=== PATIENT | female | born 1940 | race Caucasian/White ===

== ENCOUNTER 2019-02-18 22:13 | Inpatient (IN) | payer OTHER, SELFPAY ==
[2019-02-18 22:14] VITALS: BP 172/118; PULSE 73; RESP 15; TEMP 36.8; O2SAT 99; BMI 29.2
--- NOTE | 2019-02-18 22:27 | RAD_ITS ---
HISTORY: FALL, LEFT HIP PAIN, COUGH EXAM: XR Chest 1 View: COMPARISON: July 03, 2009 FINDINGS: # of images incl. paperwork: 1 Calcific plaque within the aortic arch is similar Lungs are clear. Heart is not enlarged. Multilevel degenerative disc disease. Bilateral shoulder arthritis. Pulmonary vascularity is distinct. No pleural effusions. RAD/Chest 1 View (Portable) IMPRESSION: No acute disease perceived. at 0037 Reported and signed by: Adryan Maher MD Electronically Signed: Adryan Maher MD at 0:36 EST Tel , Service support ,
--- NOTE | 2019-02-18 22:27 | RAD_ITS ---
ACR Level 3 findings have been noted. An addendum which confirms receipt of the report will follow. HISTORY:FALL, LEFT HIP PAIN FALL, LEFT HIP PAIN COMPARISON: None FINDINGS: # of images incl. paperwork: 4 XR Hip Unilateral with Pelvis when performed; 2-3 Views: Left BONE AND JOINTS: Intertrochanteric left hip fracture with no significant displacement. Degenerative change of left hip with central joint space narrowing SOFT TISSUES: Surgical clips in the pelvis No radiopaque foreign body. RAD/HIP, UNI W/ Pelvis 2-3 Views IMPRESSION: Intertrochanteric left hip fracture at 2353 Reported and signed by: Yin Salas DO Electronically Signed: Yin Salas DO at 23:52 EST Tel , Service support ,
--- NOTE | 2019-02-18 22:27 | EKG12_ITS ---
Test Reason : LOWER EXTREMITY Blood Pressure : / mmHG Vent. Rate : 075 BPM Atrial Rate : 075 BPM P-R Int : 226 ms QRS Dur : 086 ms QT Int : 418 ms P-R-T Axes : 078 -12 074 degrees QTc Int : 466 ms Sinus rhythm with 1st degree A-V block Otherwise normal ECG Confirmed by TEN CAM, CAITLYN ([id number]), senior editor MANAN MAHAJAN ([id number]) on 02/21/2019 10:01:39 AM Referred By: SOWMYA Confirmed By:CAITLYN CAAL MD
--- NOTE | 2019-02-18 22:28 | ED.VIS.GEN ---
History of Present Illness Chief Complaint: Lower Extremity Injury Narrative: Patient is a 78-year-old female who presents with left hip pain. Shortly before presentation here she was sitting on a bench which fell over and she fell onto a wooden floor. She complains of severe left hip pain. She does not believe she sustained any other injuries. No head injury. No loss of consciousness. She is not anticoagulated. She took ibuprofen at home which has not helped. Past Medical History - Allergies and Home Meds Allergies/Adverse Reactions: Allergies No Known Allergies Allergy (Verified 02/18/19 22:18) Primary Care Physician: Kaiser Lao DO [Primary Care Provider] - Past Medical History: - - Hypertension Smoking Status: Never smoker Review of Systems All systems negative except as indicated General: Denies: Fever Eyes: Denies: Visual changes - bilaterally ENT: Denies: Bilateral ear pain Cardiovascular: Denies: Chest pain Respiratory: Denies: Dyspnea Gastrointestinal: Denies: Vomiting Musculoskeletal: Reports: - - Left hip pain Skin: Denies: Rash Neurological: Denies: Headache Allergy: Denies: Uticaria Physical Exam Vital Signs/Narrative: Vital Signs Temp Pulse Resp BP Pulse Ox 02/18/19 22:14 98.2 F 73 15 172/118 H 99 Inital Vital Signs reviewed: Yes General: Well nourished, Well developed Head: Normocephalic Eyes: EOMI ENT: Moist mucous membranes Neck: Supple Cardiovascular: Regular rate, Regular rhythm Respiratory: No distress, CTA bilaterally Abdomen: Soft, Nontender, Nondistended Extremities: - - Painful limited range of motion of the left hip, left lower extremity shortening and rotation, palpable dorsalis pedis pulse, brisk capillary refill, normal sensation to light touch, no tenderness of the knee ankle or foot, distal motor function intact Skin: Normal color Neurological: Alert Psychological: Normal affect Diagnostic/Tx/Re-eval 02/18/19 22:27 Chest 1 View (Portable) [RAD] Stat HIP, UNI W/ Pelvis 2-3 Views [RAD] Stat Laboratory Results 02/18/19 02/18/19 02/18/19 22:48 22:48 22:48 WBC 6.2 RBC 3.40 L Hgb 11.6 L Hct 33.9 L MCV 99.7 H MCH 34.1 H MCHC 34.2 RDW Std Deviation 44.2 H RDW Coeff of Maryuri 12.0 Plt Count 148 L MPV 10.9 Immature Gran % (Auto) 0.300 Neut % (Auto) 74.1 H Lymph % (Auto) 17.6 L [place] % (Auto) 6.3 Eos % (Auto) 1.0 Baso % (Auto) 0.7 Absolute Neuts (auto) 4.6 Absolute Lymphs (auto) 1.08 Nucleated RBC % 0 PT 12.7 INR 1.0 Sodium 142 Potassium 3.8 Chloride 108 H Carbon Dioxide 27.0 Anion Gap 7 BUN 30 H Creatinine 1.39 H Estim Creat Clear Calc 29.27 Est GFR (MDRD) Af Amer 47 L Est GFR (MDRD) Non-Af 39 L BUN/Creatinine Ratio 21.6 H Glucose 197 H Calcium 9.2 - Medical Decision Making Left hip x-ray does show an intertrochanteric hip fracture. Chest x-ray on my review is unremarkable. EKG shows sinus rhythm with a first-degree AV block. Serum laboratory studies notable only for creatinine of 1.39, no old to compare to. I did speak to orthopedics on-call, Dr. Bowie who will see the patient in consultation and if patient is able to be medically cleared likely surgery tomorrow. Patient will be discussed with the hospitalist and admitted. ED Disposition - Plan for ED Patient: Disposition: Acute Care Hospital [facility] Diagnosis: Hip fracture, left Referrals: Kaiser Lao DO [Primary Care Provider] -
[2019-02-18] MEDS: Ondansetron 4 MG/2 ML Vial IV (22:54)
[2019-02-18] MEDS: Morphine 4 MG/ML Syringe IV (22:56)
[2019-02-18 22:58] LABS: Absolute Lymphocyte Count 1.08 X10^3/uL (0.83-4.51); Absolute Neutrophil Count 4.6 X10^3/uL (2.0-7.7); Basophil# 0.04 X10^3/uL; Basophil% 0.7 % (0-1); Eosinophil# 0.06 X10^3/uL; Hematocrit 33.9 % (37-47); Hemoglobin 11.6 g/dL (12.0-15.0); Lymphocyte # 1.08 X10^3/ul (4.0); Lymphocyte % 17.6 % (19-41); Mean Corp Hgb Conc 34.2 g/dL (32-36); Mean Corpuscular Hgb 34.1 pg (27.0-32.0); Mean Corpuscular Volume 99.7 fL (81-99); Mean Platelet Vol. 10.9 fl (6.2-12.0); Monocyte# 0.39 X10^3/uL; Monocyte% 6.3 % (0-10); NRBC Flagged by Analyzer 0 % (0-5); Neutrophil # 4.56 X10^3/uL (2.7-7.7); Neutrophil % 74.1 % (47-70); Platelet Count 148 K/mm3 (150-450); RBC Distribution Width SD 44.2 fl (35.1-43.9); White Blood Count 6.2 K/mm3 (4.4-11.0)
[2019-02-18 22:59] VITALS: BP 179/63; PULSE 75; RESP 15; O2SAT 98
[2019-02-18 23:07] LABS: Prothrombin Time (Protime)PT. 12.7 SECONDS (11.7-14.9)
[2019-02-18 23:13] LABS: Anion Gap 7 (5-15); BUN 30 mg/dL (7-18); BUN/Creat Ratio 21.6 RATIO (10-20); Calcium,Total 9.2 mg/dL (8.5-10.1); Chloride 108 mmol/L (98-107); Creatinine, Serum 1.39 mg/dL (0.55-1.02); EST Glomerular Filtration Rate 39 mL/min (>60); Est Glom Filt Rate - Afr Amer 47 mL/min (>60); Estimated Creatinine Clearance 29.27 ml/min; Glucose 197 mg/dL (74-106); Potassium 3.8 mmol/L (3.5-5.1); Sodium Level 142 mmol/L (136-145)
--- NOTE | 2019-02-18 23:47 | PCM.HP.STD ---
Problem List (1) Renal insufficiency Status: Acute (2) Hyperglycemia Status: Acute (3) Hypertension Status: Chronic (4) Hip fracture, left Status: Acute History of Present Illness Date of Admission: 02/18/19 Chief Complaint: Fall, left hip pain. The patient is a 78 year old F patient with past medical history as mentioned above presented to the emergency because of fall and left hip pain. Patient was sitting on a bench, fell over and to her left side and she started complaining of left hip pain. Left hip pain was severe, 10 out of 10 in severity, sharp pain, aggravated by movement, relieved by rest and without associated symptoms. She denied any symptoms preceding the fall such as chest pain, shortness of breath, palpitation, dizziness or lightheadedness. In the emergency room, her blood pressure was elevated, other vital signs were stable. Routine blood work was remarkable for hemoglobin of 11.6 g/dL, platelet count of 148,000, BUN of 30 and creatinine of 1.39. Blood glucose was 197. Chest x-ray showed no acute findings. EKG revealed, sinus rhythm with first-degree AV block, [place] interval of 226 ms, no acute acute changes. X-ray of the left hip revealed left intertrochanteric hip fracture. She is being admitted for surgical fixation. 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 Lives: Spouse/ Significant Other Smoking Status: Never smoker Alcohol: None Drugs: None - *Family History Maternal History Items: No pertinent history Paternal History Items: No pertinent history Review of Systems Constitutional: Denies: Anorexia, Chills, Fever, Weakness Eyes: Denies: Blurred vision, Double vision, Drainage, Redness HEENT: Denies: Difficulty Hearing, Ear Pain, Nasal Congestion, Sore Throat Cardiovascular: Denies: Chest Pain, Claudication, Chest Pressure, Edema, Heaviness, Light Headedness, Palpitations, Syncope Respiratory: Denies: Cough, Pleuritic Pain, Shortness of Breath, Sputum production, Wheezing Gastrointestinal: Denies: Abdominal Pain, Constipation, Diarrhea, Nausea, Vomiting Genitourinary: Denies: Dysuria, Frequency, Hematuria Musculoskeletal: Reports: Joint Pain. Denies: Arm Pain, Back Pain, Foot Pain Skin: Denies: Dryness, Rash Neurological: Denies: Balance problems, Blurred vision, Double vision, Change in Speech, Slurred speech, Confusion, Headaches, Incoordination, Numbness Psychiatric: Denies: Anxiety, Depression Endocrine: Denies: Change in Body Habitus, Polydipsia, Polyuria VTE Information - Inpt Only VTE Present on Admission: No VTE Mechan Device Prophylaxis: None VTE Pharm Prophylaxis ordered?: Yes Patient Problems: Active and Suspected Problems Renal insufficiency (Acute) Hyperglycemia (Acute) Hip fracture, left (Acute) - Physical Exam Vitals/I&O's: Vital Signs Temp Pulse Resp BP Pulse Ox 98.2 F 75 15 179/63 H 98 02/18/19 22:14 02/18/19 22:59 02/18/19 22:59 02/18/19 22:59 02/18/19 22:59 Oxygen Delivery Method Room Air Weight: 170 lb Body Mass Index (BMI) 29.2 General: Alert, Oriented x3, Cooperative, No apparent distress HEENT: Atraumatic, PERRLA, EOMI, Normocephalic Oral: Moist Mucosa, No Gingival or Mucosal Lesions/ Ulcerations Neck: Supple, No JVD, Negative Carotid Bruits, Trachea Midline, Thyroid Normal Size and Texture Lungs: Clear to auscultation, Normal air movement, No rhonchi, No wheeze, No rales Cardiovascular: Regular rate, Regular Rhythm, Normal S1, Normal S2, PMI Normal Abdomen: Bowel Sounds Present, Soft, Non Tender, Non-Distended, No Hepato-splenomegaly, Obese Extremities: No clubbing, No cyanosis, No edema Skin: No rashes, No breakdown Lymphatic: No Cervical, Supraclavicular, or Inguinal Adenopathy Neurological: Cranial nerves II-XII grossly intact, Motor Exam 5/5 strength throughout Psych/Mental Status: Normal Affect, Appropriate, Alert and oriented to time, place, person, mood and affect Laboratory Results 02/18/19 22:48: WBC 6.2, RBC 3.40 L, Hgb 11.6 L, Hct 33.9 L, MCV 99.7 H, MCH 34.1 H, MCHC 34.2, RDW Std Deviation 44.2 H, RDW Coeff of Maryuri 12.0, Plt Count 148 L, MPV 10.9, Immature Gran % (Auto) 0.300, Neut % (Auto) 74.1 H, Lymph % (Auto) 17.6 L, [place] % (Auto) 6.3, Eos % (Auto) 1.0, Baso % (Auto) 0.7, Absolute Neuts (auto) 4.6, Absolute Lymphs (auto) 1.08, Nucleated RBC % 0 02/18/19 22:48: PT 12.7, INR 1.0 02/18/19 22:48: Sodium 142, Potassium 3.8, Chloride 108 H, Carbon Dioxide 27.0, Anion Gap 7, BUN 30 H, Creatinine 1.39 H, Estim Creat Clear Calc 29.27, Est GFR (MDRD) Af Amer 47 L, Est GFR (MDRD) Non-Af 39 L, BUN/Creatinine Ratio 21.6 H, Glucose 197 H, Calcium 9.2 Assessment/Plan All Active Problems Renal insufficiency (Acute) Hyperglycemia (Acute) Hip fracture, left (Acute) This is a 78 years old female patient presented to the emergency room because of fall and left hip pain, found to have acute traumatic left intertrochanteric hip fracture and she is being admitted for treatment. #1 acute traumatic left intertrochanteric hip fracture: X-ray of the left hip reviewed. Routine blood work reviewed as above. Chest x-ray and EKG reviewed, was unremarkable except as below. Plan: Admit to MedSurg floor, complete bedrest, gentle IV fluids for hydration, clear liquids for now, IV morphine PRN, OxyIR PRN, IV antiemetics, orthopedic surgery consult, repeat CBC and BMP tomorrow morning, PT OT evaluation and treatment when appropriate. #2 preoperative evaluation: 78 years old patient with past history of hypertension, never smoked, active without any restrictions. Chest x-ray showed no acute findings. EKG reviewed as above, unremarkable. No history of CAD or COPD. Routine blood work reviewed as above. Based on her age, functional status, past medical history, serum creatinine and type of surgery, her estimated risk for perioperative myocardial infarction or cardiac arrest is 0.2%. Based on ACS NSQIP surgical risk calculator, patient's risk for serious complications is 8.7% which is below average. No indication for any further work-up. Patient is at low to low moderate risk for complications. We can proceed with surgery. #3 hyperglycemia: Without prior history of diabetes. Blood sugars 197. Plan: Accu-Cheks every 6 hours, insulin sliding scale, check hemoglobin A1c. #4 renal insufficiency: Unknown if this is acute or chronic. BUN is 30, creatinine 1.39. Patient is on triamterene and HCTZ. Plan: Gentle IV fluids hydration, input output chart, repeat BMP tomorrow morning. #5 mild anemia/thrombocytopenia: Hemoglobin is 11.6 g/dL, it is normocytic anemia. Platelet count is 148,000, very close to normal. PT and INR are normal. Unknown baseline hemoglobin and platelet count. Plan to monitor. #6 hypertension: Blood pressure is elevated likely because of pain. Plan to continue Maxzide, IV hydralazine PRN. #7 DVT prophylaxis: Subcu heparin. This note was generated with [employer] dictation software. It may contain incorrect words, spelling, and punctuation that were not noted in checking the note before signing. Code Visit Inpatient E&M: 43772 Init Hosp L3
[2019-02-19] VITALS (14 sets, daily range): BP systolic 128–170; BP diastolic 43–78; PULSE 64–78; RESP 16–20; TEMP 36.2–38.1; O2SAT 93–100; BMI 31.1; BMI 31.2
[2019-02-19] MEDS: 0.9% Saline Lock 10 ML Syringe IV ×3 (01:35→20:56)
[2019-02-19] MEDS: 0.9% Normal Saline 1,000 ML 100 ML IV (01:35)
[2019-02-19] MEDS: Morphine 2 MG/ML Syringe IV ×2 (01:35→16:42)
[2019-02-19] MEDS: hydrALAZINE 20 MG/ML Vial 10 MG IV (01:36)
[2019-02-19 01:42] LABS: Hemoglobin A1c 6.7 % (4.2-6.3)
[2019-02-19 01:46] LABS: Bedside Glucose 162 mg/dL (70-110)
[2019-02-19 05:56] LABS: Bedside Glucose 111 mg/dL (70-110)
[2019-02-19 06:13] LABS: Absolute Neutrophil Count 3.6 X10^3/uL (2.0-7.7); Basophil# 0.02 X10^3/uL; Basophil% 0.4 % (0-1); Eosinophil# 0.04 X10^3/uL; Eosinophils% 0.8 % (0-5); Hemoglobin 10.4 g/dL (12.0-15.0); Mean Corp Hgb Conc 33.5 g/dL (32-36); Mean Corpuscular Hgb 33.5 pg (27.0-32.0); Mean Platelet Vol. 10.7 fl (6.2-12.0); Monocyte# 0.29 X10^3/uL; Monocyte% 5.8 % (0-10); NRBC Flagged by Analyzer 0 % (0-5); Neutrophil # 3.64 X10^3/uL (2.7-7.7); Neutrophil % 72.6 % (47-70); Platelet Count 131 K/mm3 (150-450); RBC Distribution Width CV 12.2 % (11.6-14.6); RBC Distribution Width SD 44.6 fl (35.1-43.9)
[2019-02-19 06:39] LABS: Anion Gap 5 (5-15); BUN 29 mg/dL (7-18); BUN/Creat Ratio 25.4 RATIO (10-20); Calcium,Total 8.4 mg/dL (8.5-10.1); Chloride 110 mmol/L (98-107); Creatinine, Serum 1.14 mg/dL (0.55-1.02); EST Glomerular Filtration Rate 49 mL/min (>60); Est Glom Filt Rate - Afr Amer 59 mL/min (>60); Estimated Creatinine Clearance 35.69 ml/min; Glucose 124 mg/dL (74-106); Sodium Level 141 mmol/L (136-145)
--- NOTE | 2019-02-19 08:30 | RAD_ITS ---
STUDY: X-RAY - LEFT HIP REASON FOR EXAM: Female, 78 years old. SURGICAL HIP REPAIR TECHNIQUE: Fluoroscopic views of the left hip. 9 fluoroscopic images. 95.2 seconds of fluoroscopy time. COMPARISON: None. FINDINGS: Fixation screw spanning left IT fracture with medullary zeb of the left femur (and distal interlocking screw). Distal femoral medullary zeb partially visualized. Gross radiographic alignment. RAD/Hip Min 2 Views (Portable) IMPRESSION: Fluoroscopic guidance for left IT fracture fixation Electronically Signed: Paul Mooney MD ([place]) at 12:18 EST , Service support ,
[2019-02-19] MEDS: Lactated Ringers 1,000 ML 100 ML IV (09:00)
[2019-02-19] MEDS: Cefazolin 2 GM in 0.9% Normal Saline 100 ML IV (09:03)
--- NOTE | 2019-02-19 09:49 | CON.PCM_ITS ---
Reason for Consult Date of Consultation: 02/19/19 History of Present Illness: The patient is a 78 year old female who fell off the end of a bench on February 18, 2019. She states her left hip felt fine before that. She does not use assistive devices to ambulate. She had severe left hip pain after falling off the bench. She was not able to walk. She denies head injury or loss of consciousness. She was brought to the hospital diagnosed with a left hip fracture. Admitted to the medical service. Orthopedics appropriately consulted. 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 Seen with multiple family members present. Vital signs and laboratory work reviewed. Left hip has mild shortening and rotation. Left hip has pain on palpation. Left calf had no pain or swelling. Right calf has no pain or swelling. Active plantar flexion and dorsiflexion of both ankles and toes causes no pain and had no obvious deficit. No left knee pain. Lower extremities are neurovascular intact. X-rays AP pelvis AP and lateral of left hip shows a intertrochanteric fracture with mild displacement. Some hip joint degeneration. No obvious lytic or blastic lesions. - Physical Exam Vitals/I&O's: Vital Signs Temp Pulse Resp BP Pulse Ox 97.1 F L 70 18 142/43 H 95 02/19/19 08:13 02/19/19 08:13 02/19/19 08:13 02/19/19 08:13 02/19/19 09:19 Oxygen Delivery Method Room Air Weight: 82.4 kg Body Mass Index (BMI) 31.1 Intake and Output for Last 24 Hours 02/17/19 02/18/19 02/19/19 23:59 23:59 23:59 Output Total 550 / 550 Balance -550 / -550 Laboratory Results 02/18/19 22:48: WBC 6.2, RBC 3.40 L, Hgb 11.6 L, Hct 33.9 L, MCV 99.7 H, MCH 34.1 H, MCHC 34.2, RDW Std Deviation 44.2 H, RDW Coeff of Maryuri 12.0, Plt Count 148 L, MPV 10.9, Immature Gran % (Auto) 0.300, Neut % (Auto) 74.1 H, Lymph % (Auto) 17.6 L, [place] % (Auto) 6.3, Eos % (Auto) 1.0, Baso % (Auto) 0.7, Absolute Neuts (auto) 4.6, Absolute Lymphs (auto) 1.08, Nucleated RBC % 0 02/18/19 22:48: PT 12.7, INR 1.0 02/18/19 22:48: Sodium 142, Potassium 3.8, Chloride 108 H, Carbon Dioxide 27.0, Anion Gap 7, BUN 30 H, Creatinine 1.39 H, Estim Creat Clear Calc 29.27, Est GFR (MDRD) Af Amer 47 L, Est GFR (MDRD) Non-Af 39 L, BUN/Creatinine Ratio 21.6 H, Glucose 197 H, Calcium 9.2 02/18/19 22:48: Hemoglobin A1c 6.7 H 02/19/19 01:34: POC Glucose 162 H 02/19/19 05:43: POC Glucose 111 H 02/19/19 05:55: Sodium 141, Potassium 4.0, Chloride 110 H, Carbon Dioxide 26.0, Anion Gap 5, BUN 29 H, Creatinine 1.14 H, Estim Creat Clear Calc 35.69, Est GFR (MDRD) Af Amer 59 L, Est GFR (MDRD) Non-Af 49 L, BUN/Creatinine Ratio 25.4 H, Glucose 124 H, Calcium 8.4 L 02/19/19 05:55: WBC 5.0, RBC 3.10 L, Hgb 10.4 L, Hct 31.0 L, MCV 100.0 H, MCH 33.5 H, MCHC 33.5, RDW Std Deviation 44.6 H, RDW Coeff of Maryuri 12.2, Plt Count 131 L, MPV 10.7, Immature Gran % (Auto) 0.400, Neut % (Auto) 72.6 H, Lymph % (Auto) 20.0, [place] % (Auto) 5.8, Eos % (Auto) 0.8, Baso % (Auto) 0.4, Absolute Neuts (auto) 3.6, Absolute Lymphs (auto) 1.00, Nucleated RBC % 0 02/19/19 05:55: Blood Type A POSITIVE, Antibody Screen NEGATIVE Current Medications Acetaminophen (Tylenol) 650 mg PO Q6H PRN PRN PRN Reason: Pain Score 1-3/Temp > 100.7 F Docusate Sodium (Colace) 100 mg PO BID SANTOS Glucagon () 1 mg IM .X1 PRN PRN Reason: Hypoglycemia Hydralazine HCl (Apresoline Iv) 10 mg IV Q6H PRN PRN PRN Reason: for SBP>160 Last Admin: 02/19/19 01:36 Dose: 10 mg Documented by: Sodium Chloride () 250 mls @ 15 mls/hr IV .[id number] PRN PRN Reason: Saline Flush Sodium Chloride () 250 mls @ 15 mls/hr IV .[id number] PRN PRN Reason: Additional IVPB Infusion Sodium Chloride () 1,000 mls @ 100 mls/hr IV .Q10H SANTOS Last Admin: 02/19/19 01:35 Dose: 100 mls/hr Documented by: Dextrose (Dextrose 10%-Water) 250 mls @ 999 mls/hr IV .Q16M PRN; Protocol PRN Reason: HYPOGLYCEMIA Insulin Human Lispro (Humalog Kwikpen (Bkc)) 0 unit SC Q6 SANTOS; Protocol Last Admin: 02/19/19 05:57 Dose: Not Given Documented by: Magnesium Hydroxide (Milk Of Magnesia) 30 ml PO DAILY PRN PRN PRN Reason: Constipation Metoprolol Succinate (Toprol Xl (Beta Lester)) 25 mg PO DAILY SANTOS Morphine Sulfate () 2 mg IV Q3H PRN PRN PRN Reason: Pain Score 6-10/10 Last Admin: 02/19/19 01:35 Dose: 2 mg Documented by: Ondansetron HCl (Zofran) 4 mg IV Q8H PRN PRN PRN Reason: NAUSEA/VOMITING Oxycodone HCl (Oxyir) 5 mg PO Q6H PRN PRN PRN Reason: Pain Score 4-5/10 Sodium Chloride () 10 - 40 ml IV UD PRN PRN Reason: SALINE FLUSH Last Admin: 02/19/19 01:35 Dose: 10 ml Documented by: Triamterene/HCTZ (Maxzide) 0.5 tablet PO DAILY SANTOS Assessment/Plan All Active Problems Renal insufficiency (Acute) Hyperglycemia (Acute) Hip fracture, left (Acute) Left hip intertrochanteric fracture, displaced. Treatment options discussed with her her family at length. They would like to proceed with left hip open reduction internal fixation. Risk of surgery including but not limited to from operative or postoperative complications. Risk of anesthetic complications such as heart a ttacks, strokes, seizures, or . Risk of infections. Risk of damage to nerves arteries tendons. Risk of inadvertent fractures or dislocations. Risk of bone or wound healing complications. Possibility of nonunion malunion pain stiffness weakness. Possible need for further surgery such as hardware removal. Risk of DVT PE and other potential complications could lead to or disability explained. No guarantees were stated or implied. All of their questions were answered. Appropriate informed consent was obtained and signed for surgical intervention. She will continue on the medical service. She can be discharged to home or ECF when medically stable. Continue Ancef perioperatively and she will be started on aspirin for DVT prevention. This note was generated with [employer] software. It may contain incorrect words, spelling, and punctuation that were not noted in checking the note before signing.
--- NOTE | 2019-02-19 09:55 | PRO.PCM_ITS ---
Procedure Report Date of Procedure: 02/19/19 Preoperative diagnosis: Left hip displaced unstable intertrochanteric fracture Postoperative diagnosis: Same Title of operation: Left hip open reduction internal fixation, intramedullary nail fixation, locked Surgeon: Dr. Floyd Bowie Wharf Laborer: Francisco Javier BAXTER Anesthesia: General Medications: Ancef Indications for surgery: Patient is an 78-year-old female sustained a hip fracture yesterday. Patient and their family explained diagnosis and treatment options. Patient evaluated by the medical services. Patient did wish to have surgery. Appropriate informed consent obtained and signed. Findings: Patient had a displaced mildly displaced intertrochanteric hip fracture. They underwent standard reduction, internal fixation using a Albert Lea short gamma nail. X-rays taken throughout. day care assistant, SAHIL, was utilized throughout the entire procedure. They were vital to the procedure from beginning to end. They help with patient transfer, patient padding and positioning, fracture reduction, maintenance of fracture reduction, internal fixation of implants, wound closure, bandage application, patient transfer. Without nursing surgical services director, surgical time would have been significantly increased and surgical outcome could have been less optimal. Procedure: Patient was taken to the operating room. Placed under a general anesthetic and transferred to the operating table with the help of the visitor services assistant. With the help of the visitor services assistant patient was prepped and padded for surgery. Operative side foot was well-padded and placed in the traction boot. Uninjured lower extremity was abducted and flexed out of harms way. KEV hose and SCDs utilized. Fluoroscopy was brought in. With the help of the visitor services assistant and manipulation of the limb, reduction was nicely obtained as verified under AP lateral and oblique fluoroscopic images. . Operative hip/thigh was prepped padded draped in usual orthopedic sterile fashion for the procedure. Longitudinal incision was made just proximal to the greater trochanter. Taken through skin and subcutaneous tissue. Sharp awl was placed on the tip of the greater trochanter. Position verified under AP and lateral fluoroscopic images. This was then taken down inside the bone. Slightly bent ball-tipped guide zeb was then placed from the tip of the greater trochanter into the intra-medullary canal of the femur. Its position verified radiographically. Reamer was then done over the tip of this with the help of the visitor services assistant holding the soft tissue protector appropriately. Once reaming was done we placed the short 125? angle device over the guidepin. This was easily introduced. Guide zeb removed. Outrigger device was utilized to position a guidepin from the lateral cortex of the femur across the fracture site and into the femoral head in a good position centrally, as noted on AP lateral and oblique fluoroscopic images. This was measured. Appropriate reaming done. Appreciate length lag screw was placed from the lateral cortex of the femur into the femoral head. A small amount of the screw was noted to be protruding laterally as planned. No cartilage penetration of the femoral head noted on any x-ray. Fracture was then compressed with the outrigger device. Proximal cap screw was placed by the visitor services assistant seated down completely, confirmed, and then loosened one fourth turn. We then used the outrigger device to place distal cross locking screw under standard technique. This was confirmed to be of adequate length in good position on AP and lateral images. Outrigger device removed. Final set of AP and lateral proximal x-rays taken and saved. Incisions thoroughly irrigated. Closing by the visitor services assistant with deep 0 Vicryl, mid layer 0 Vicryl, inverted 2-0 Vicryl, skin oleg. Puncture wounds closed with inverted 2-0 Vicryl and oleg. Xeroform 4 x 4's ABD tape applied. Patient was awoken from their anesthetic, transferred back to their own bed with the help of the visitor services assistant and into recovery room in satisfactory condition. Patient will continue to be admitted to the hospital under the hospitalist service. This note was generated with [employer] software. It may contain incorrect words, spelling, and punctuation that were not noted in checking the note before signing.
[2019-02-19 10:30] LABS: Bedside Glucose 119 mg/dL (70-110)
[2019-02-19] MEDS: Metoprolol(XL)Succ 25 MG Tablet PO (11:26)
--- NOTE | 2019-02-19 12:30 | PCM.PN.HOSP ---
Patient Problems: Active and Suspected Problems Renal insufficiency (Acute) Hyperglycemia (Acute) Hip fracture, left (Acute) Reason for Visit: hip fracture Subjective: Tired post-op. Had some cramps in RLE. Vitals/I&O's: Vital Signs Temp Pulse Resp BP Pulse Ox 36.9 C 64 20 H 162/59 H 94 02/19/19 11:11 02/19/19 11:26 02/19/19 11:11 02/19/19 11:26 02/19/19 11:11 Oxygen Flow Rate (L/min) 2 Oxygen Delivery Method Nasal Cannula Weight: 82.4 kg Body Mass Index (BMI) 31.1 Finger Stick Blood Glucose 119 Intake and Output for Last 24 Hours 02/17/19 02/18/19 02/19/19 23:59 23:59 23:59 Intake Total 1343.33 / 1343.33 Output Total 1000 / 1000 Balance 343.33 / 343.33 General: Cooperative, No apparent distress, - - groggy HEENT: Atraumatic, Normocephalic Oral: Moist Mucosa, No Gingival or Mucosal Lesions/ Ulcerations Neck: No Nodes, Trachea Midline Lungs: Clear to auscultation, Normal air movement, No rhonchi, No wheeze Cardiovascular: Regular rate, Regular Rhythm, Normal S1, Normal S2, No murmurs Abdomen: Bowel Sounds Present, Soft, Non Tender, Non-Distended Extremities: No edema, No Calf Tenderness Laboratory Results 02/18/19 22:48: WBC 6.2, RBC 3.40 L, Hgb 11.6 L, Hct 33.9 L, MCV 99.7 H, MCH 34.1 H, MCHC 34.2, RDW Std Deviation 44.2 H, RDW Coeff of Maryuri 12.0, Plt Count 148 L, MPV 10.9, Immature Gran % (Auto) 0.300, Neut % (Auto) 74.1 H, Lymph % (Auto) 17.6 L, [place] % (Auto) 6.3, Eos % (Auto) 1.0, Baso % (Auto) 0.7, Absolute Neuts (auto) 4.6, Absolute Lymphs (auto) 1.08, Nucleated RBC % 0 02/18/19 22:48: PT 12.7, INR 1.0 02/18/19 22:48: Sodium 142, Potassium 3.8, Chloride 108 H, Carbon Dioxide 27.0, Anion Gap 7, BUN 30 H, Creatinine 1.39 H, Estim Creat Clear Calc 29.27, Est GFR (MDRD) Af Amer 47 L, Est GFR (MDRD) Non-Af 39 L, BUN/Creatinine Ratio 21.6 H, Glucose 197 H, Calcium 9.2 02/18/19 22:48: Hemoglobin A1c 6.7 H 02/19/19 01:34: POC Glucose 162 H 02/19/19 05:43: POC Glucose 111 H 02/19/19 05:55: Sodium 141, Potassium 4.0, Chloride 110 H, Carbon Dioxide 26.0, Anion Gap 5, BUN 29 H, Creatinine 1.14 H, Estim Creat Clear Calc 35.69, Est GFR (MDRD) Af Amer 59 L, Est GFR (MDRD) Non-Af 49 L, BUN/Creatinine Ratio 25.4 H, Glucose 124 H, Calcium 8.4 L 02/19/19 05:55: WBC 5.0, RBC 3.10 L, Hgb 10.4 L, Hct 31.0 L, MCV 100.0 H, MCH 33.5 H, MCHC 33.5, RDW Std Deviation 44.6 H, RDW Coeff of Maryuri 12.2, Plt Count 131 L, MPV 10.7, Immature Gran % (Auto) 0.400, Neut % (Auto) 72.6 H, Lymph % (Auto) 20.0, [place] % (Auto) 5.8, Eos % (Auto) 0.8, Baso % (Auto) 0.4, Absolute Neuts (auto) 3.6, Absolute Lymphs (auto) 1.00, Nucleated RBC % 0 02/19/19 05:55: Blood Type A POSITIVE, Antibody Screen NEGATIVE 02/19/19 10:28: POC Glucose 119 H Current Medications Acetaminophen (Tylenol) 650 mg PO Q6H PRN PRN PRN Reason: Pain Score 1-3/Temp > 100.7 F Aspirin (Ecotrin) 81 mg PO BIDCM [facility]ANTOS Docusate Sodium (Colace) 100 mg PO BID [facility] Last Admin: 02/19/19 11:27 Dose: Not Given Documented by: Glucagon () 1 mg IM .X1 PRN PRN Reason: Hypoglycemia Hydralazine HCl (Apresoline Iv) 10 mg IV Q6H PRN PRN PRN Reason: for SBP>160 Last Admin: 02/19/19 01:36 Dose: 10 mg Documented by: Sodium Chloride () 250 mls @ 15 mls/hr IV .[id number] PRN PRN Reason: Saline Flush Sodium Chloride () 250 mls @ 15 mls/hr IV .[id number] PRN PRN Reason: Additional IVPB Infusion Dextrose (Dextrose 10%-Water) 250 mls @ 999 mls/hr IV .Q16M PRN; Protocol PRN Reason: HYPOGLYCEMIA Cefazolin Sodium () 1 gm in 50 mls @ 100 mls/hr IV Q6H [facility] Stop: 02/20/19 03:29 Lactated Ringer's () 1,000 mls @ 100 mls/hr IV .Q10H [facility]ANTOS Last Infusion: 02/19/19 11:20 Dose: Infused Documented by: Insulin Human Lispro (Humalog Kwikpen (Bkc)) 0 unit SC Q6 [facility]; Protocol Last Admin: 02/19/19 05:57 Dose: Not Given Documented by: Magnesium Hydroxide (Milk Of Magnesia) 30 ml PO DAILY PRN PRN PRN Reason: Constipation Metoprolol Succinate (Toprol Xl (Beta Lester)) 25 mg PO DAILY [facility] Last Admin: 02/19/19 11:26 Dose: 25 mg Documented by: Morphine Sulfate () 2 mg IV Q3H PRN PRN PRN Reason: Pain Score 6-10/10 Last Admin: 02/19/19 01:35 Dose: 2 mg Documented by: Ondansetron HCl (Zofran) 4 mg IV Q8H PRN PRN PRN Reason: NAUSEA/VOMITING Oxycodone HCl (Oxyir) 5 mg PO Q6H PRN PRN PRN Reason: Pain Score 4-5/10 Sodium Chloride () 10 - 40 ml IV UD PRN PRN Reason: SALINE FLUSH Last Admin: 02/19/19 01:35 Dose: 10 ml Documented by: Triamterene/HCTZ (Maxzide) 0.5 tablet PO DAILY [facility] STROKE Vital Signs/Narrative: Vital Signs Temp Pulse Resp BP Pulse Ox 02/19/19 11:26 64 162/59 H 02/19/19 11:11 36.9 C 64 20 H 162/59 H 94 02/19/19 10:43 36.4 C L 66 16 158/54 H 98 02/19/19 10:30 71 16 137/54 H 93 02/19/19 10:15 78 16 151/66 H 96 02/19/19 10:11 36.2 C L 78 16 132/78 H 96 02/19/19 09:19 95 Medical Necessity - Tobacco Use Smoking Status: Never smoker Assessment/Plan All Active Problems Renal insufficiency (Acute) Hyperglycemia (Acute) Hip fracture, left (Acute) 1. left hip fracture ORIF with IM nail on 02/19 traumatic check 25-OH D activity, weight-bearing per orthopaedics 2. hyperglycemia exacerbated by stress a1c 6.7 SSI 3. CKD 3 suspect that she is at baseline monitor 4. VTE prophylaxis: ASA 81 BID DW family at beside. Code Visit Inpatient E&M: 08823 Subs Hosp L2
[2019-02-19 13:06] LABS: Bedside Glucose 131 mg/dL (70-110)
[2019-02-19] MEDS: oxyCODONE 5 MG Tablet PO (14:14)
[2019-02-19] MEDS: Cefazolin 1 GM/50 ML BAG IV ×2 (14:15→20:56)
[2019-02-19 16:51] LABS: Bedside Glucose 113 mg/dL (70-110)
[2019-02-19] MEDS: Docusate Sodium 100 MG Capsule PO (20:56)
[2019-02-20 00:20] LABS: Bedside Glucose 136 mg/dL (70-110)
[2019-02-20] MEDS: oxyCODONE 5 MG Tablet PO ×2 (01:20→08:16)
[2019-02-20] MEDS: Cefazolin 1 GM/50 ML BAG IV (02:50)
[2019-02-20 02:53] VITALS: BP 138/48; PULSE 76; RESP 18; TEMP 37.6; O2SAT 94
[2019-02-20] MEDS: Morphine 2 MG/ML Syringe IV (05:19)
[2019-02-20] MEDS: 0.9% Saline Lock 10 ML Syringe IV (05:19)
[2019-02-20 05:38] LABS: Absolute Lymphocyte Count 1.39 X10^3/uL (0.83-4.51); Absolute Neutrophil Count 3.6 X10^3/uL (2.0-7.7); Basophil# 0.01 X10^3/uL; Basophil% 0.2 % (0-1); Eosinophil# 0.01 X10^3/uL; Eosinophils% 0.2 % (0-5); Hematocrit 27.7 % (37-47); Hemoglobin 9.2 g/dL (12.0-15.0); Lymphocyte # 1.39 X10^3/ul (4.0); Lymphocyte % 25.9 % (19-41); Mean Corp Hgb Conc 33.2 g/dL (32-36); Mean Corpuscular Hgb 33.6 pg (27.0-32.0); Mean Corpuscular Volume 101.1 fL (81-99); Mean Platelet Vol. 10.8 fl (6.2-12.0); Monocyte# 0.36 X10^3/uL; Monocyte% 6.7 % (0-10); NRBC Flagged by Analyzer 0 % (0-5); Neutrophil # 3.58 X10^3/uL (2.7-7.7); Neutrophil % 66.6 % (47-70); Platelet Count 117 K/mm3 (150-450); RBC Distribution Width CV 12.4 % (11.6-14.6); RBC Distribution Width SD 45.5 fl (35.1-43.9); Red Blood Count 2.74 M/mm3 (4.2-5.4); White Blood Count 5.4 K/mm3 (4.4-11.0)
[2019-02-20 05:55] LABS: Anion Gap 5 (5-15); BUN 25 mg/dL (7-18); BUN/Creat Ratio 19.7 RATIO (10-20); Calcium,Total 8.1 mg/dL (8.5-10.1); Chloride 107 mmol/L (98-107); Creatinine, Serum 1.27 mg/dL (0.55-1.02); EST Glomerular Filtration Rate 43 mL/min (>60); Est Glom Filt Rate - Afr Amer 52 mL/min (>60); Estimated Creatinine Clearance 32.03 ml/min; Glucose 130 mg/dL (74-106); Potassium 3.8 mmol/L (3.5-5.1); Sodium Level 138 mmol/L (136-145)
[2019-02-20 07:01] LABS: Bedside Glucose 121 mg/dL (70-110)
[2019-02-20 07:21] VITALS: O2SAT 96
[2019-02-20 08:14] VITALS: PULSE 75
[2019-02-20] MEDS: Metoprolol(XL)Succ 25 MG Tablet PO (08:14)
[2019-02-20] MEDS: Docusate Sodium 100 MG Capsule PO ×3 (08:14→20:29)
[2019-02-20 08:15] VITALS: BP 132/55; PULSE 73; RESP 16; TEMP 37.4; O2SAT 93
[2019-02-20] MEDS: Triamterene 75MG/Hctz 50MG Tablet 0.5 TABLET PO (08:15)
[2019-02-20] MEDS: Aspirin E.C. 81 MG Tablet PO ×2 (08:15→16:31)
[2019-02-20 09:00] LABS: Vitamin D,25 Hydroxy 29.7 ng/mL (29.95-100.01)
--- NOTE | 2019-02-20 09:29 | PCM.PN.HOSP ---
Patient Problems: Active and Suspected Problems Renal insufficiency (Acute) Hyperglycemia (Acute) Hip fracture, left (Acute) Reason for Visit: hip fracture Subjective: Feels well. Anxious to get up. Vitals/I&O's: Vital Signs Temp Pulse Resp BP Pulse Ox 37.4 C H 73 16 132/55 H 93 02/20/19 08:15 02/20/19 08:15 02/20/19 08:15 02/20/19 08:15 02/20/19 08:15 Oxygen Flow Rate (L/min) 2 Oxygen Delivery Method Room Air Weight: 82.4 kg Body Mass Index (BMI) 31.1 Finger Stick Blood Glucose 119 Intake and Output for Last 24 Hours 02/18/19 02/19/19 02/20/19 23:59 23:59 23:59 Intake Total 2143.33 / 2143.33 50 / 50 Output Total 1500 / 1500 475 / 475 Balance 643.33 / 643.33 -425 / -425 General: Alert, Cooperative, No apparent distress HEENT: Atraumatic, Normocephalic Oral: Moist Mucosa, No Gingival or Mucosal Lesions/ Ulcerations Neck: No Nodes, Trachea Midline Lungs: Clear to auscultation, Normal air movement, No rhonchi, No wheeze, No rales Cardiovascular: Regular rate, Regular Rhythm, Normal S1, Normal S2, No murmurs Abdomen: Bowel Sounds Present, Soft, Non Tender, Non-Distended, No Hepato-splenomegaly Extremities: No edema, No Calf Tenderness Psych/Mental Status: Normal Affect, Appropriate Laboratory Results 02/19/19 10:28: POC Glucose 119 H 02/19/19 12:58: POC Glucose 131 H 02/19/19 16:42: POC Glucose 113 H 02/20/19 00:15: POC Glucose 136 H 02/20/19 05:20: WBC 5.4, RBC 2.74 L, Hgb 9.2 L, Hct 27.7 L, MCV 101.1 H, MCH 33.6 H, MCHC 33.2, RDW Std Deviation 45.5 H, RDW Coeff of Maryuri 12.4, Plt Count 117 L, MPV 10.8, Immature Gran % (Auto) 0.400, Neut % (Auto) 66.6, Lymph % (Auto) 25.9, [place] % (Auto) 6.7, Eos % (Auto) 0.2, Baso % (Auto) 0.2, Absolute Neuts (auto) 3.6, Absolute Lymphs (auto) 1.39, Nucleated RBC % 0 02/20/19 05:20: Sodium 138, Potassium 3.8, Chloride 107, Carbon Dioxide 26.0, Anion Gap 5, BUN 25 H, Creatinine 1.27 H, Estim Creat Clear Calc 32.03, Est GFR (MDRD) Af Amer 52 L, Est GFR (MDRD) Non-Af 43 L, BUN/Creatinine Ratio 19.7, Glucose 130 H, Calcium 8.1 L 02/20/19 05:20: Vitamin D 25-Hydroxy 29.7 L 02/20/19 06:12: POC Glucose 121 H Current Medications Acetaminophen (Tylenol) 650 mg PO Q6H PRN PRN PRN Reason: Pain Score 1-3/Temp > 100.7 F [facility] Admin: 02/20/19 08:15 Dose: 81 mg Documented by: Docusate Sodium (Colace) 100 mg PO BID [facility] OF [facility] Last Admin: 02/20/19 08:14 Dose: 100 mg Documented by: Glucagon () 1 mg IM .X1 PRN PRN Reason: Hypoglycemia Hydralazine HCl (Apresoline Iv) 10 mg IV Q6H PRN PRN PRN Reason: for SBP>160 Last Admin: 02/19/19 01:36 Dose: 10 mg Documented by: Sodium Chloride () 250 mls @ 15 mls/hr IV .[id number] PRN PRN Reason: Saline Flush Sodium Chloride () 250 mls @ 15 mls/hr IV .[id number] PRN PRN Reason: Additional IVPB Infusion Dextrose (Dextrose 10%-Water) 250 mls @ 999 mls/hr IV .Q16M PRN; Protocol PRN Reason: HYPOGLYCEMIA Insulin Human Lispro (Humalog Kwikpen (Bkc)) 0 unit SC Q6 ON LICENSE OF [facility]; Protocol Last Admin: 02/20/19 06:19 Dose: Not Given Documented by: Magnesium Hydroxide (Milk Of Magnesia) 30 ml PO DAILY PRN PRN PRN Reason: Constipation Metoprolol Succinate (Toprol Xl (Beta Lester)) 25 mg PO DAILY ON [facility] OF [facility] Last Admin: 02/20/19 08:14 Dose: 25 mg Documented by: Morphine Sulfate () 2 mg IV Q3H PRN PRN PRN Reason: Pain Score 6-10/10 Last Admin: 02/20/19 05:19 Dose: 2 mg Documented by: Ondansetron HCl (Zofran) 4 mg IV Q8H PRN PRN PRN Reason: NAUSEA/VOMITING Oxycodone HCl (Oxyir) 5 mg PO Q6H PRN PRN PRN Reason: Pain Score 4-5/10 Last Admin: 02/20/19 08:16 Dose: 5 mg Documented by: Oxycodone HCl (Oxyir) 10 mg PO Q6H PRN PRN PRN Reason: Pain Score 6-10/10 Sodium Chloride () 10 - 40 ml IV UD PRN PRN Reason: SALINE FLUSH Last Admin: 02/20/19 05:19 Dose: 10 ml Documented by: Triamterene/HCTZ (Maxzide) 0.5 tablet PO DAILY [facility] Last Admin: 02/20/19 08:15 Dose: 0.5 tablet Documented by: STROKE Vital Signs/Narrative: Vital Signs Temp Pulse Resp BP Pulse Ox 02/20/19 08:15 37.4 C H 73 16 132/55 H 93 02/20/19 08:14 75 02/20/19 07:21 96 Medical Necessity - Tobacco Use Smoking Status: Never smoker Assessment/Plan All Active Problems Renal insufficiency (Acute) Hyperglycemia (Acute) Hip fracture, left (Acute) 1. left hip fracture ORIF with IM nail on 02/19 traumatic activity, weight-bearing per orthopaedics 2. DM2 exacerbated by stress a1c 6.7 diabetic diet nutrition to assist with diet recs for patient upon discharge 3. CKD 3 suspect that she is at baseline monitor 4. VTE prophylaxis: ASA 81 BID 5. Vitamin D deficiency 25-OH D level is 29, goal is 50. Start ergocalciferol DW family at beside. Code Visit Inpatient E&M: 49823 Subs Hosp L2
--- NOTE | 2019-02-20 11:15 | CASEMGMT ---
RN CM Face to Face with patient for initial transition planning/care coordination assessment. RN CM introduced self and role at [facility]. Patient lying in bed, alert and oriented, at bedside. Patient willing to participate in assessment and is able to answer all questions appropriately. Care providers, pharmacy, and demographics verified. Patient wishes to discharge home pending how she does with therapy. SNF list, DME, and Home therapy pricing list given to patient. Patient states she has no further needs or concerns at this time. CM to follow for discharge planning needs that may arise. PCP: Tashia Specialists: none Preferred Pharmacy: [facility] Insurance: none Prescription Benefit: none Living Will/HPOA: none LNOK: , son Living Arrangements: Patient lives with son and in 1 story home with 5 steps and railing to enter the home. Transportation: Driving service DME/HHC: Patient has cane and grab bars at home. [facility] information given. Disposition Plan: TBD pending therapy. Silvina MCCONNELL, RN, CM
[2019-02-20 11:36] LABS: Bedside Glucose 139 mg/dL (70-110)
--- NOTE | 2019-02-20 12:37 | PCM.PN.ORT ---
Patient Problems: Active and Suspected Problems Renal insufficiency (Acute) Hyperglycemia (Acute) Hip fracture, left (Acute) Subjective: Patient lying in bed awake. Patient's family at her side. Patient states her pain is well-managed today. Patient denies chest pain, shortness of breath, calf pain, nausea vomiting. Patient states she is ready for discharge home. She has no other complaints at this time Objective: Dressing is clean dry intact. Negative signs or symptoms of DVT. Labs vitals within normal limits. Patient has no calf pain, negative signs or symptoms of DVT. Patient speaking full sentences, no obvious respiratory distress. Patient is afebrile. She has good plantar flexion dorsiflexion of bilateral feet. Good flexion-extension of left knee. - Physical Exam Vitals/I&O's: Vital Signs Temp Pulse Resp BP Pulse Ox 99.3 F H 73 16 132/55 H 93 02/20/19 08:15 02/20/19 08:15 02/20/19 08:15 02/20/19 08:15 02/20/19 08:15 Oxygen Flow Rate (L/min) 2 Oxygen Delivery Method Room Air Weight: 82.4 kg Body Mass Index (BMI) 31.1 Finger Stick Blood Glucose 119 Intake and Output for Last 24 Hours 02/18/19 02/19/19 02/20/19 23:59 23:59 23:59 Intake Total 2143.33 / 2143.33 50 / 50 Output Total 1500 / 1500 475 / 475 Balance 643.33 / 643.33 -425 / -425 General: Alert, Oriented x3, Cooperative HEENT: PERRLA Oral: Moist Mucosa Neurological: Cranial nerves II-XII grossly intact Psych/Mental Status: Normal Affect, Alert and oriented to time, place, person, mood and affect Laboratory Results 02/19/19 12:58: POC Glucose 131 H 02/19/19 16:42: POC Glucose 113 H 02/20/19 00:15: POC Glucose 136 H 02/20/19 05:20: WBC 5.4, RBC 2.74 L, Hgb 9.2 L, Hct 27.7 L, MCV 101.1 H, MCH 33.6 H, MCHC 33.2, RDW Std Deviation 45.5 H, RDW Coeff of Maryuri 12.4, Plt Count 117 L, MPV 10.8, Immature Gran % (Auto) 0.400, Neut % (Auto) 66.6, Lymph % (Auto) 25.9, [place] % (Auto) 6.7, Eos % (Auto) 0.2, Baso % (Auto) 0.2, Absolute Neuts (auto) 3.6, Absolute Lymphs (auto) 1.39, Nucleated RBC % 0 02/20/19 05:20: Sodium 138, Potassium 3.8, Chloride 107, Carbon Dioxide 26.0, Anion Gap 5, BUN 25 H, Creatinine 1.27 H, Estim Creat Clear Calc 32.03, Est GFR (MDRD) Af Amer 52 L, Est GFR (MDRD) Non-Af 43 L, BUN/Creatinine Ratio 19.7, Glucose 130 H, Calcium 8.1 L 02/20/19 05:20: Vitamin D 25-Hydroxy 29.7 L 02/20/19 06:12: POC Glucose 121 H 02/20/19 11:09: POC Glucose 139 H Current Medications Acetaminophen (Tylenol) 650 mg PO Q6H PRN PRN PRN Reason: Pain Score 1-3/Temp > 100.7 F [facility] Last Admin: 02/20/19 08:15 Dose: 81 mg Documented by: Docusate Sodium (Colace) 100 mg PO BID [facility] Last Admin: 02/20/19 08:14 Dose: 100 mg Documented by: Ergocalciferol (Vitamin D) 50,000 unit PO Q7D [facility] Last Admin: 02/20/19 11:07 Dose: 50,000 unit Documented by: Glucagon () 1 mg IM .X1 PRN PRN Reason: Hypoglycemia Hydralazine HCl (Apresoline Iv) 10 mg IV Q6H PRN PRN PRN Reason: for SBP>160 Last Admin: 02/19/19 01:36 Dose: 10 mg Documented by: Sodium Chloride () 250 mls @ 15 mls/hr IV .[id number] PRN PRN Reason: Saline Flush Sodium Chloride () 250 mls @ 15 mls/hr IV .[id number] PRN PRN Reason: Additional IVPB Infusion Dextrose (Dextrose 10%-Water) 250 mls @ 999 mls/hr IV .Q16M PRN; Protocol PRN Reason: HYPOGLYCEMIA Insulin Human Lispro (Humalog Kwikpen (Bkc)) 0 unit SC ACHS [facility]; Protocol Last Admin: 02/20/19 11:10 Dose: Not Given Documented by: Magnesium Hydroxide (Milk Of Magnesia) 30 ml PO DAILY PRN PRN PRN Reason: Constipation Metoprolol Succinate (Toprol Xl (Beta Lester)) 25 mg PO DAILY [facility] Last Admin: 02/20/19 08:14 Dose: 25 mg Documented by: Morphine Sulfate () 2 mg IV Q3H PRN PRN PRN Reason: Pain Score 6-10/10 Last Admin: 02/20/19 05:19 Dose: 2 mg Documented by: Ondansetron HCl (Zofran) 4 mg IV Q8H PRN PRN PRN Reason: NAUSEA/VOMITING Oxycodone HCl (Oxyir) 5 mg PO Q6H PRN PRN PRN Reason: Pain Score 4-5/10 Last Admin: 02/20/19 08:16 Dose: 5 mg Documented by: Oxycodone HCl (Oxyir) 10 mg PO Q6H PRN PRN PRN Reason: Pain Score 6-10/10 Sodium Chloride () 10 - 40 ml IV UD PRN PRN Reason: SALINE FLUSH Last Admin: 02/20/19 05:19 Dose: 10 ml Documented by: Triamterene/HCTZ (Maxzide) 0.5 tablet PO DAILY [facility] Last Admin: 02/20/19 08:15 Dose: 0.5 tablet Documented by: Medical Necessity - Tobacco Use Smoking Status: Never smoker Assessment/Plan All Active Problems Renal insufficiency (Acute) Hyperglycemia (Acute) Hip fracture, left (Acute) Status post ORIF left hip fracture Plan 1. Continue all pain medications as prescribed 2. Continue physical therapy with weight-bear as tolerated with walker. 3. Aspirin 81 mg 1 p.o. every 12 hours x30 days for postop DVT prophylaxis 4. Encourage incentive spirometry 5. Discharge when cleared by medicine 6. Follow-up with Dr. Bowie in 12 to 14 days, call office for appointment
--- NOTE | 2019-02-20 12:41 | DCINST_ITS ---
Discharge Diet: No Restrictions Discharge Activity: May Not Drive, May Shower, Use Walker May shower in (days): 5 - only if incision is dry and without drainage. Do NOT soak/submerge in tub/pool/thompson/stream/hot tub. May resume sexual activity in: No Restrictions Ice area for (Minutes): 20 - every hour while awake Weight Bearing Status: Weight bearing as tolerated Lifting Restrictions: 20 pounds Elevate: Operative Extremity Call your doctor if your incision/area has: Continuous Slow Oozing, Sudden Increased Bleeding, Increased Pain/ Swelling, Increased Redness, Foul Smelling Discharge Call your doctor if you observe: Fever of 101 or Higher, Inability to urinate, Inability to have a bowel movement, Shortness of breath, Fainting spells, Chest pain, Increased palpitations (irregular heartbeat), Calf discomfort, Uncontrolled pain Change Dressing in (Days):: 0 - Change daily and as needed. Remove Dressing in (days):: 8 Cleanse incision/area with: Soap & Water Allergies/Adverse Reactions: Allergies No Known Allergies Allergy (Verified 02/18/19 22:18) Medications to take at Discharge Metoprolol Succinate 25 mg PO DAILY 02/18/19 Triamterene 75MG/Hctz 50MG [Maxzide] 0.5 tab PO DAILY 02/18/19 Primary Care Physician: Kaiser Lao DO [Primary Care Provider] - Test Results: Test results from this visit will be discussed in further detail at your follow- up appointment, if applicable. Please Follow Up With: Floyd Bowie MD - call office for appointment When: 12-14 days
[2019-02-20] MEDS: oxyCODONE 5 MG Tablet 10 MG PO ×2 (14:15→20:15)
[2019-02-20 14:20] VITALS: BP 134/55; PULSE 74; RESP 18; TEMP 37.7; O2SAT 92
[2019-02-20 16:41] LABS: Bedside Glucose 153 mg/dL (70-110)
--- NOTE | 2019-02-20 19:00 | NURSING ---
LR INFUSING @ 15ML/HR. PER REPORT OK TO DC AFTER BAG IS EMPTIED. UNABLE TO CHART ON MAR SINCE BAG WAS DOCUMENTED COMPLETELY INFUSED.
[2019-02-20 20:38] VITALS: BP 147/67; PULSE 71; RESP 18; TEMP 37.2; O2SAT 93
[2019-02-20 20:41] LABS: Bedside Glucose 142 mg/dL (70-110)
[2019-02-21] VITALS (8 sets, daily range): BP systolic 109–146; BP diastolic 46–57; PULSE 61–78; RESP 16–18; TEMP 36.8–37.2; O2SAT 92–97
[2019-02-21] MEDS: Acetaminophen 325 MG Tablet 650 MG PO ×2 (00:10→13:10)
[2019-02-21] MEDS: oxyCODONE 5 MG Tablet 10 MG PO (03:15)
[2019-02-21 06:36] LABS: Bedside Glucose 128 mg/dL (70-110)
[2019-02-21] MEDS: Aspirin E.C. 81 MG Tablet PO (08:21)
[2019-02-21] MEDS: Magnesium Hydroxide 30 ML UDC PO (09:53)
[2019-02-21] MEDS: Docusate Sodium 100 MG Capsule PO (09:53)
[2019-02-21] MEDS: oxyCODONE 5 MG Tablet PO (09:53)
[2019-02-21] MEDS: Triamterene 75MG/Hctz 50MG Tablet 0.5 TABLET PO (09:54)
[2019-02-21] MEDS: Metoprolol(XL)Succ 25 MG Tablet PO (09:54)
--- NOTE | 2019-02-21 10:24 | DCINST_ITS ---
- Discharge Diagnoses Current Active Problems: Current Active and Chronic Problems Renal insufficiency (Acute) Hyperglycemia (Acute) Hypertension (Chronic) Hip fracture, left (Acute) You will use the following diet at home:: Calorie/Carbohydrate Controlled (specify 1200, 1400, etc) - 1800 Your food should be the consistency of: Regular Your liquids should be the consistency of: Regular/Thin Discharge Activity: May Not Drive, May Shower, Use Walker May shower in (days): 5 - only if incision is dry and without drainage. Do NOT soak/submerge in tub/pool/thompson/stream/hot tub. May resume sexual activity in: No Restrictions Ice area for (Minutes): 20 - every hour while awake Weight Bearing Status: Weight bearing as tolerated Keep extremity elevated above heart level: Operative Extremity Call your doctor if your incision/area has: Continuous Slow Oozing, Sudden Increased Bleeding, Increased Pain/ Swelling, Increased Redness, Foul Smelling Discharge Call your doctor if you observe: Fever of 101 or Higher, Inability to urinate, Inability to have a bowel movement, Shortness of breath, Fainting spells, Chest pain, Increased palpitations (irregular heartbeat), Calf discomfort, Uncontrolled pain Change Dressing in (Days):: 0 - Change daily and as needed. Remove Dressing in (days):: 8 Cleanse incision/area with: Soap & Water Allergies/Adverse Reactions: Allergies No Known Allergies Allergy (Verified 02/18/19 22:18) Medications to take at Discharge Metoprolol Succinate 25 mg PO DAILY 02/18/19 Triamterene 75MG/Hctz 50MG [Maxzide] 0.5 tab PO DAILY 02/18/19 Aspirin E.C. [Ecotrin] 81 mg PO BIDCM tablet 02/21/19 Ergocalciferol [Vitamin D] 50,000 unit PO Q7D #7 cap 02/21/19 Oxycodone [Oxyir] 5 mg PO Q6H PRN PRN 3 Days #12 tablet 02/21/19 The following prescriptions were given: Oxycodone [Oxyir] 5 mg PO Q6H PRN PRN 3 Days #12 tablet PRN Reason: Pain Score 4-10/10 Transmission Status: Sent to [facility] Ergocalciferol [Vitamin D] 50,000 unit PO Q7D #7 cap Transmission Status: Pending to [id number] Primary Care Physician: Kaiser Lao DO [Primary Care Provider] - Within 2 Weeks Test Results: Test results from this visit will be discussed in further detail at your follow- up appointment, if applicable. Please Follow Up With: Floyd Bowie MD - call office for appointment When: 12-14 days Proposed Discharge Date: 02/21/19
--- NOTE | 2019-02-21 10:25 | DS.PCM_ITS ---
Discharge Date and Diagnosis - Problem List Patient Problems: Active and Suspected Problems Renal insufficiency (Acute) Hyperglycemia (Acute) Hip fracture, left (Acute) Date of Admission: 02/18/19 Date of Discharge: 02/21/19 - Primary Discharge Diagnosis Active and Suspected Problems 1. left hip fracture * ORIF with IM nail on 02/19 * traumatic * activity, weight-bearing per orthopaedics 2. DM2 * exacerbated by stress * a1c 6.7 * diabetic diet * nutrition to assist with diet recs for patient upon discharge 3. CKD 3 * suspect that she is at baseline * monitor * ROSEMARY ruled-out 4. VTE prophylaxis: ASA 81 BID 5. Vitamin D deficiency * 25-OH D level is 29, goal is 50. * Start ergocalciferol for total of 8 weeks. Recheck level afterwards, and if still low, start cholecalciferol 2000 units daily. - Secondary Discharge Diagnosis Chronic Problems Hypertension (Chronic) Hospital Course and Treatment Operations: None, cholecystecomy Summary of Care Provided: The patient is a 78 year old F who fell and broke her hip. Patient underwent an ORIF with intramedullary nail by Dr. Floyd Bowie on the . Patient tolerated procedure well. Patient had a 25-hydroxy vitamin D level that was low and has been started on ergocalciferol.. Patient does have elevated blood sugars consistent with diabetes. Patient recommend being on a carb controlled diet. Patient be discharged home with home health care. [] Patient Problems: Active and Suspected Problems Renal insufficiency (Acute) Hyperglycemia (Acute) Hip fracture, left (Acute) - Physical Exam Vitals/I&O's: Vital Signs Temp Pulse Resp BP Pulse Ox 36.8 C 73 16 115/54 L 97 02/21/19 08:17 02/21/19 09:54 02/21/19 08:17 02/21/19 09:48 02/21/19 08:17 Oxygen Flow Rate (L/min) 2 Oxygen Delivery Method Room Air Weight: 82.4 kg Body Mass Index (BMI) 31.1 Finger Stick Blood Glucose 119 Intake and Output for Last 24 Hours 02/19/19 02/20/19 02/21/19 23:59 23:59 23:59 Intake Total 2143.33 / 2143.33 750 / 750 465 / 465 Output Total 1500 / 1500 1100 / 1100 200 / 200 Balance 643.33 / 643.33 -350 / -350 265 / 265 General: Alert, No apparent distress, - - Up with a side of bed working with therapy Psych/Mental Status: Normal Affect, Appropriate Laboratory Results 02/20/19 11:09: POC Glucose 139 H 02/20/19 16:33: POC Glucose 153 H 02/20/19 20:33: POC Glucose 142 H 02/21/19 06:13: POC Glucose 128 H Current Medications Acetaminophen (Tylenol) 650 mg PO Q6H PRN PRN PRN Reason: Pain Score 1-3/Temp > 100.7 F Last Admin: 02/21/19 00:10 Dose: 650 mg Documented by: [facility]) [facility] Last Admin: 02/21/19 08:21 Dose: 81 mg Documented by: Docusate Sodium (Colace) 100 mg PO BID [facility] Last Admin: 02/21/19 09:53 Dose: 100 mg Documented by: Ergocalciferol (Vitamin D) 50,000 unit PO Q7D [facility] Last Admin: 02/20/19 11:07 Dose: 50,000 unit Documented by: Glucagon () 1 mg IM .X1 PRN PRN Reason: Hypoglycemia Hydralazine HCl (Apresoline Iv) 10 mg IV Q6H PRN PRN PRN Reason: for SBP>160 Last Admin: 02/19/19 01:36 Dose: 10 mg Documented by: Sodium Chloride () 250 mls @ 15 mls/hr IV .[id number] PRN PRN Reason: Saline Flush Sodium Chloride () 250 mls @ 15 mls/hr IV .[id number] PRN PRN Reason: Additional IVPB Infusion Dextrose (Dextrose 10%-Water) 250 mls @ 999 mls/hr IV .Q16M PRN; Protocol PRN Reason: HYPOGLYCEMIA Insulin Human Lispro (Humalog Kwikpen (Bkc)) 0 unit SC ACHS [facility]; Protocol Last Admin: 02/21/19 06:42 Dose: Not Given Documented by: Magnesium Hydroxide (Milk Of Magnesia) 30 ml PO DAILY PRN PRN PRN Reason: Constipation Last Admin: 02/21/19 09:53 Dose: 30 ml Documented by: Metoprolol Succinate (Toprol Xl (Beta Lester)) 25 mg PO DAILY [facility] Last Admin: 02/21/19 09:54 Dose: 25 mg Documented by: Morphine Sulfate () 2 mg IV Q3H PRN PRN PRN Reason: Pain Score 6-10/10 Last Admin: 02/20/19 05:19 Dose: 2 mg Documented by: Ondansetron HCl (Zofran) 4 mg IV Q8H PRN PRN PRN Reason: NAUSEA/VOMITING Oxycodone HCl (Oxyir) 5 mg PO Q6H PRN PRN PRN Reason: Pain Score 4-5/10 Last Admin: 02/21/19 09:53 Dose: 5 mg Documented by: Oxycodone HCl (Oxyir) 10 mg PO Q6H PRN PRN PRN Reason: Pain Score 6-10/10 Last Admin: 02/21/19 03:15 Dose: 10 mg Documented by: Sodium Chloride () 10 - 40 ml IV UD PRN PRN Reason: SALINE FLUSH Last Admin: 02/20/19 05:19 Dose: 10 ml Documented by: Triamterene/HCTZ (Maxzide) 0.5 tablet PO DAILY [facility] Last Admin: 02/21/19 09:54 Dose: 0.5 tablet Documented by: Discharge Diet: No Restrictions Discharge Activity: May Not Drive, May Shower, Use Walker May shower in (days): 5 - only if incision is dry and without drainage. Do NOT soak/submerge in tub/pool/thompson/stream/hot tub. May resume sexual activity in: No Restrictions Ice area for (Minutes): 20 - every hour while awake Weight Bearing Status: Weight bearing as tolerated Keep extremity elevated above heart level: Operative Extremity Call your doctor if your incision/area has: Continuous Slow Oozing, Sudden Increased Bleeding, Increased Pain/ Swelling, Increased Redness, Foul Smelling Discharge Call your doctor if you observe: Fever of 101 or Higher, Inability to urinate, Inability to have a bowel movement, Shortness of breath, Fainting spells, Chest pain, Increased palpitations (irregular heartbeat), Calf discomfort, Uncontrolled pain Change Dressing in (Days):: 0 - Change daily and as needed. Remove Dressing in (days):: 8 Cleanse incision/area with: Soap & Water Home Medications: Medications to take at Discharge Metoprolol Succinate 25 mg PO DAILY 02/18/19 Triamterene 75MG/Hctz 50MG [Maxzide] 0.5 tab PO DAILY 02/18/19 Aspirin E.C. [Ecotrin] 81 mg PO BIDCM tablet 02/21/19 Ergocalciferol [Vitamin D] 50,000 unit PO Q7D #7 cap 02/21/19 Oxycodone [Oxyir] 5 mg PO Q6H PRN PRN 3 Days #12 tablet 02/21/19 Following Prescrptions Were Given to Patient: Oxycodone [Oxyir] 5 mg PO Q6H PRN PRN 3 Days #12 tablet PRN Reason: Pain Score 4-10/10 Transmission Status: Sent to [facility] 18[facility] Ergocalciferol [Vitamin D] 50,000 unit PO Q7D #7 cap Transmission Status: [facility] Primary Care Physician: Kaiser Lao DO [Primary Care Provider] - Within 2 Weeks Please Follow Up With: Floyd Bowie MD - call office for appointment When: 12-14 days Disposition: Home with Home Health Minutes spent on discharge:: 32 Patient Condition:: Good Medical Necessity - Tobacco Use Smoking Status: Never smoker Meaningful Use Info Meaningful Use Diagnoses (Choose all that apply): None applicable Code Visit Inpatient E&M: 74461 Disch Hosp
--- NOTE | 2019-02-21 10:37 | PCA ---
made apt for patient primary care. Primary care doctor is out for 3 weeks.. was able to make apt for patient for 3 weeks instead of 2 like doctor requested for march 20 1414
--- NOTE | 2019-02-21 11:45 | CASEMGMT ---
RN CM in to discuss discharge needs with patient and family. Patient and agreeable to discharge home with home therapy. Family would like [facility]. RN CM sent referral to [facility] and they are able to accept the patient.
[2019-02-21 11:55] LABS: Bedside Glucose 226 mg/dL (70-110)
--- NOTE | 2019-02-24 13:28 | CASEMGMT ---
SRUTHI CM DC PHONE CALL DC DATE: DC Disposition: Diagnosis on Discharge: LACE/STRATA: 02/21/19 Attempted call to phone. 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 Lorie CASTAÑEDAN RN ACM
== END 2019-02-21 15:08 | disposition home or self-care (01) | DRG 482 ==
LOC: ED 23:38 → MS3 02-19 00:02
PROVIDERS: Orthopaedic Surgery; Admitting Provider Hospitalist; Emergency Provider Emergency Medicine; Family Provider Family Medicine; PCP Family Medicine
PROC: 0QS706Z Reposition Left Upper Femur with Intramedullary Internal Fixation Device, Open Approach (ICD-10-PCS; CPT 27245; principal; 2019-02-19 09:00)
DX: S72.142A Displaced intertrochanteric fracture of left femur, initial encounter for closed fracture (principal); E11.22 Type 2 diabetes mellitus with diabetic chronic kidney disease; N18.3 Chronic kidney disease, stage 3 (moderate); E55.9 Vitamin D deficiency, unspecified; I12.9 Hypertensive chronic kidney disease with stage 1 through stage 4 chronic kidney disease, or unspecified chronic kidney disease; I44.0 Atrioventricular block, first degree; W19.XXXA Unspecified fall, initial encounter
CPT/HCPCS: 36415; 71045; 73502; 76000; 80048; 82306; 82962; 83036; 85025; 85610; 86850; 86900; 86901; 93005; 97110; 97116; 97161; 97166; 97530; 97535; 97802; 99251; 99284; C1713; C1776; J7030; J7120; A4216; G0463; J2405

== ENCOUNTER 2023-06-19 21:51 | Emergency (ER) | payer OTHER, SELFPAY ==
[2023-06-19 21:53] VITALS: BP 176/58; PULSE 78; RESP 18; TEMP 37; O2SAT 95; BMI 27.8
[2023-06-19] MEDS: Ketorolac 15 MG/ML Vial IV (22:22)
[2023-06-19] MEDS: 0.9% Normal Saline (1000mL) 1,000 ML 999 ML IV (22:22)
[2023-06-19] MEDS: dexAMETHasone 10 MG/ML Vial IV (22:23)
[2023-06-19 22:33] LABS: Absolute Lymphocyte Count 1.43 X10^3/uL (0.83-4.51); Absolute Neutrophil Count 3.2 X10^3/uL (2.0-7.7); Basophil# 0.02 X10^3/uL; Basophil% 0.4 % (0-1); Eosinophil# 0.03 X10^3/uL; Eosinophils% 0.6 % (0-5); Hematocrit 30.8 % (37-47); Hemoglobin 10.8 g/dL (12.0-15.0); Lymphocyte # 1.43 X10^3/ul (0.83-4.51); Lymphocyte % 28.9 % (19-41); Mean Corp Hgb Conc 35.1 g/dL (32-36); Mean Corpuscular Volume 105.5 fL (81-99); Mean Platelet Vol. 11.7 fl (6.2-12.0); Monocyte% 6.1 % (0-10); NRBC Flagged by Analyzer 0 % (0-5); Neutrophil # 3.15 X10^3/uL (2.7-7.7); Neutrophil % 63.8 % (47-70); Platelet Count 138 K/mm3 (150-450); RBC Distribution Width CV 12.3 % (11.6-14.6); RBC Distribution Width SD 47.8 fl (35.1-43.9); Red Blood Count 2.92 M/mm3 (4.2-5.4); White Blood Count 4.9 K/mm3 (4.4-11.0)
[2023-06-19 22:46] LABS: Anion Gap 8 (5-15); BUN 29 mg/dL (7-18); BUN/Creat Ratio 21.6 RATIO (10-20); CPK Total, Creatine Kinase 36 U/L (26-192); Calcium,Total 9.1 mg/dL (8.5-10.1); Chloride 97 mmol/L (98-107); Creatinine, Serum 1.34 mg/dL (0.55-1.02); EST Glomerular Filtration Rate 40 mL/min (>60); Est Glom Filt Rate - Afr Amer 49 mL/min (>60); Estimated Creatinine Clearance 33.52 ml/min; Glucose 221 mg/dL (74-106); Magnesium 2.2 mg/dL (1.6-2.6); Potassium 3.7 mmol/L (3.5-5.1); Sodium Level 130 mmol/L (136-145); Uric Acid 5.3 mg/dL (2.6-6.0)
--- NOTE | 2023-06-19 22:57 | EX.ED.DYSGE1 ---
HPI History of Present Illness Chief Complaint: General Illness Informant: patient, spouse/S.O. and family Narrative Narrative: Patient is an 82-year-old female with past medical history of renal insufficiency hypertension and reported skin cancer. She states she went to bed feeling normal on Wednesday night and then awoke Wednesday with sensation of her entire body aching. She denies any increase in her medications and she denies any new medications. She also denies any fevers or chills or sick symptoms such as congestion cough sore throat nausea vomiting or diarrhea. She states that symptoms have persisted throughout the day and secondary to that she comes in for evaluation [facility] Medical History Cancer Diabetes Gout HTN (hypertension) Home Medications Metoprolol Succinate 25 mg PO DAILY blood pressure 02/18/19 [History Last Taken 02/18/19] triamterene 75 mg-hydrochlorothiazide 50 mg tablet 0.5 tab PO DAILY blood pressure 02/18/19 [History Last Taken 02/18/19] aspirin 81 mg tablet,delayed release 81 mg PO BIDCM 02/21/19 [Rx Last Taken Unknown] ergocalciferol (vitamin D2) 1,250 mcg (50,000 unit) capsule 50,000 unit PO Q7D #7 caps 02/21/19 [Rx Last Taken Unknown] oxycodone-acetaminophen 5 mg-325 mg tablet (Percocet) 1 tab PO Q6H PRN pain 3 days #12 tabs 06/19/23 [Rx Last Taken Unknown] prednisone 20 mg tablet 20 mg PO DAILY 7 days #7 tabs 06/19/23 [Rx Last Taken Unknown] Allergy/AdvReac Type Severity Reaction Status Date / Time No Known Allergies Allergy Verified 02/18/19 22:18 Surgical History History of appendectomy Social History Smoking Status: Never smoker ROS ROS ED Constitutional Constitutional ED: Denies chills or fever(s) Eyes Eyes: Denies change in vision ENT ENT ED: Denies rhinorrhea or sore throat Cardiovascular Cardiovascular: Denies chest pain Respiratory/Chest Respiratory/Chest: Denies cough or dyspnea Gastrointestinal Gastrointestinal: Denies abdominal pain, diarrhea, nausea or vomiting Genitourinary Genitourinary ED: Denies dysuria Musculoskeletal Musculoskeletal: Reports myalgias Integumentary Denies rash Neurologic Neurologic: Denies headache(s) or weakness Hematologic/Lymphatic Hematologic/Lymphatic: Denies easy bleeding or easy bruising EXAM Physical Exam Const Vital Signs: 06/19/23 21:53 06/19/23 22:00 06/19/23 23:45 Temperature 98.6 F 97.4 F L Temperature Source Temporal Pulse Rate 78 61 Respiratory Rate 18 17 Respiratory Effort Normal Non-Labored Respiratory Pattern Normal Blood Pressure 176/58 H 166/56 H Blood Pressure Mean 97 92 Pulse Ox 95 97 Oxygen Delivery Method Room Air Positive well nourished and well developed General Appearance ED: well developed HEENT Reports moist mucous membranes HEENT Narrative: No tongue or lip swelling no oral lesions no airway edema or compromise No signs of infection noted in the posterior pharynx Eyes PERRL and EOMs intact bilaterally General Eye ED: Negative for scleral icterus Neck supple Neck Narrative: No nuchal rigidity or meningeal signs noted Resp normal respiratory effort and clear to auscultation bilaterally Resp Narrative: No nasal flaring retractions tachypnea or accessory muscle use Cardio regular rate and regular rhythm GI normal to inspection, nondistended, normoactive bowel sounds, non-tender, non-distended and no masses Auscultation: normoactive bowel sounds Palpation: soft Extremity Extremity Narrative: Patient has mild soft tissue swelling and faint erythema along the M CP of both right and left first digit and there is similar irritation along the dorsal aspect of the PIP joints of the fingers concerning for gouty flare Neuro oriented x3, CN's II-XII intact bilaterally and no sensory deficits noted Sensorium / Orientation: alert Psych mental status grossly normal Skin Skin Narrative: Soft tissue changes to the bilateral hands as documented above Otherwise no rash noted MDM MDM MDM Narrative Medical decision making narrative: Patient arrived to the ER mildly hypertensive but otherwise with stable vitals. She reported her entire body aching but otherwise no sick symptoms such as fevers chills cough congestion sore throat nausea vomiting diarrhea. Differential diagnosis is myalgias secondary to viral syndrome versus acute kidney injury versus severe electrolyte abnormality. There is also concern for potential serum sickness. As the patient does not have any new medications and does not have a fever my concern for serum sickness is low. As she is not coughing or hypoxic I do not feel need for chest x-ray. Basic labs were obtained and reveal no clinically significant findings with her CPK level being normal going against rhabdomyolysis as well as her uric acid value being normal going against acute gout flare. Her CRP is elevated at 94 indicating inflammatory state. On reevaluation after Decadron fluids and Toradol she reports moderate improvement and vitals remained stable. Therefore at this time as she is hemodynamically stable and her exam and workup is indicating inflammatory process I do not feel there is need for admission and she can be placed on steroids as an outpatient and follow-up with her family doctor for repeat evaluation History & Record Review Discussion w/independent historian: Patient and Family Lab Data Attestation: I reviewed the patient's lab results. Labs: Laboratory Results - last 24 hr 06/19/23 22:01 WBC 4.9 RBC 2.92 L Hgb 10.8 L Hct 30.8 L MCV 105.5 H MCH 37.0 H MCHC 35.1 RDW Std Deviation 47.8 H RDW Coeff of Maryuri 12.3 Plt Count 138 L MPV 11.7 Immature Gran % (Auto) 0.200 Neut % (Auto) 63.8 Lymph % (Auto) 28.9 [place] % (Auto) 6.1 Eos % (Auto) 0.6 Baso % (Auto) 0.4 Absolute Neuts (auto) 3.2 Absolute Lymphs (auto) 1.43 Nucleated RBC % 0 Sodium 130 L Potassium 3.7 Chloride 97 L Carbon Dioxide 25.0 Anion Gap 8 BUN 29 H Creatinine 1.34 H Estim Creat Clear Calc 33.52 Est GFR (MDRD) Af Amer 49 L Est GFR (MDRD) Non-Af 40 L BUN/Creatinine Ratio 21.6 H Glucose 221 H Uric Acid 5.3 Calcium 9.1 Magnesium 2.2 Total Creatine Kinase 36 C-React Prot Ext Range 94.10 H Discharge Plan Triage Chief Complaint: General Illness ED Provider: Caleb Velez Dx/Rx/DC Orders Clinical Impression: Myalgia, Renal insufficiency, Hypertension Instructions: ED Myalgias, ED Viral Syndrome (Adult) Prescriptions: New prednisone 20 mg tablet 20 mg PO DAILY 7 Days Qty: 7 0RF oxycodone-acetaminophen [Percocet] 5-325 mg tablet 1 tab PO Q6H PRN (Reason: pain) 3 Days Qty: 12 0RF No Action triamterene-hydrochlorothiazid 1 TABLET tablet 0.5 tab PO DAILY Metoprolol Succinate 25 MG Tab.Er.24h 25 mg PO DAILY aspirin 81 MG tablet 81 mg PO BIDCM 0RF ergocalciferol (vitamin D2) 50,000 UNIT capsule 50,000 unit PO Q7D Qty: 7 0RF Primary Care Provider: Kaiser Lao Referrals: Kaiser Lao, [Primary Care Provider] - Activity Restrictions/Additional Instructions: Your workup today shows you have inflammation throughout your body which I feel is the main cause of your pain. This is most likely due to a viral infection. Take the steroid as directed to control inflammation which in turn should help reduce pain. If you have any worsening of symptoms or any further concerns please return for repeat evaluation Disposition Disposition: Home, Self Care
[2023-06-19 23:45] VITALS: BP 166/56; PULSE 61; RESP 17; TEMP 36.3; O2SAT 97
[2023-06-19] MEDS: Ondansetron 4 MG/2 ML Vial IV (23:51)
[2023-06-19] MEDS: Morphine 4 MG/ML Syringe IV (23:51)
== END 2023-06-19 23:55 | disposition home or self-care (01) ==
PROVIDERS: Emergency Provider Emergency Medicine; PCP Family Medicine; Visit Provider Emergency Medicine
DX: M79.10 Myalgia, unspecified site (principal); E11.9 Type 2 diabetes mellitus without complications; N28.9 Disorder of kidney and ureter, unspecified; Z11.52 Encounter for screening for COVID-19; I10 Essential (primary) hypertension; R79.82 Elevated C-reactive protein (CRP); M10.9 Gout, unspecified; Z79.899 Other long term (current) drug therapy
CPT/HCPCS: 80048; 82550; 83735; 84550; 85025; 86140; 87631; 96361; 96374; 96375; 99283; J7030; A4216; J2405

== ENCOUNTER → 2023-12-31 | Outpatient (CLI) | payer OTHER, SELFPAY | END | disposition home or self-care (01) | PROVIDERS: PCP Nurse Practitioner Family | DX: M16.11 Unilateral primary osteoarthritis, right hip (principal) | CPT/HCPCS: 87641 ==

== ENCOUNTER → 2024-01-04 | Outpatient (CLI) | payer SELFPAY, OTHER | END | disposition home or self-care (01) | PROVIDERS: PCP Nurse Practitioner Family | DX: Z01.818 Encounter for other preprocedural examination (principal); M16.11 Unilateral primary osteoarthritis, right hip | CPT/HCPCS: 71046; 93005 ==

== ENCOUNTER 2024-04-22 21:43 | Emergency (ER) | payer OTHER, SELFPAY ==
[2024-04-22 21:44] VITALS: BP 206/75; PULSE 61; RESP 15; TEMP 36.8; O2SAT 99
[2024-04-22 22:07] VITALS: BP 158/51
--- NOTE | 2024-04-22 22:08 | EDS_ITS ---
HPI History of Present Illness Chief Complaint: Wound Informant: patient and family (x2) Narrative Narrative: 83-year-old female states that 1 week ago she sustained a wound to her left leg, she was getting into a van and her foot slipped and she scraped her leg on the edge. Couple days later it started getting a little red and sore. They present now to the ED, first time they have had this evaluated by , Wednesday night because they did not want to let it go over the weekend due to fear for infection. She has had no systemic symptoms, fevers, chills. There has been little to no discharge at all, she has had a piece of gauze on it but no at home treatments otherwise. Does not usually check her blood sugars, she is a diabetic, but she checked it today and it was 122. She denies any polyuria polydipsia. [facility] Medical History HTN (hypertension) Gout Cancer Diabetes Home Medications ?Medication ?Instructions ?Recorded ?Last Taken ?Type Metoprolol Succinate 25 mg PO DAILY blood pressur e 02/18/19 02/18/19 History triamterene 75 0.5 tab PO DAILY blood press ure 02/18/19 02/18/19 History mg-hydrochlorothiazide 50 mg tablet aspirin 81 mg tablet,delayed 81 mg PO BIDCM 02/21/19 U nknown Rx release ergocalciferol (vitamin D2) 1,250 50,000 unit PO Q7D # 7 caps 02/21/19 Unknown Rx mcg (50,000 unit) capsule oxycodone-acetaminophen 5 mg-325 1 tab PO Q6H PRN pain 3 days #12 06/19/23 Unknown Rx mg tablet (Percocet) tabs prednisone 20 mg tablet 20 mg PO DAILY 7 days #7 tab s 06/19/23 Unknown Rx cephalexin 500 mg capsule 500 mg PO TID #30 caps 04/22 Unknown Rx Allergy/AdvReac Type Severity Reaction Status Date / Time No Known Allergies Allergy Verified 04/22/24 21:44
--- NOTE | 2024-04-22 22:08 | ED.VIS.LOWEX ---
HPI History of Present Illness Chief Complaint: Wound Informant: patient and family (x2) Narrative Narrative: 83-year-old female states that 1 week ago she sustained a wound to her left leg, she was getting into a van and her foot slipped and she scraped her leg on the edge. Couple days later it started getting a little red and sore. They present now to the ED, first time they have had this evaluated by , Wednesday night because they did not want to let it go over the weekend due to fear for infection. She has had no systemic symptoms, fevers, chills. There has been little to no discharge at all, she has had a piece of gauze on it but no at home treatments otherwise. Does not usually check her blood sugars, she is a diabetic, but she checked it today and it was 122. She denies any polyuria polydipsia. [facility] Medical History HTN (hypertension) Gout Cancer Diabetes Home Medications ?Medication ?Instructions ?Recorded ?Last Taken ?Type Metoprolol Succinate 25 mg PO DAILY blood pressure 02/18/19 02/18/19 History triamterene 75 0.5 tab PO DAILY blood pressure 02/18/19 02/18/19 History mg-hydrochlorothiazide 50 mg tablet aspirin 81 mg tablet,delayed 81 mg PO BIDCM 02/21/19 Unknown Rx release ergocalciferol (vitamin D2) 1,250 50,000 unit PO Q7D #7 caps 02/21/19 Unknown Rx mcg (50,000 unit) capsule oxycodone-acetaminophen 5 mg-325 1 tab PO Q6H PRN pain 3 days #12 06/19/23 Unknown Rx mg tablet (Percocet) tabs prednisone 20 mg tablet 20 mg PO DAILY 7 days #7 tabs 06/19/23 Unknown Rx cephalexin 500 mg capsule 500 mg PO TID #30 caps 04/22/24 Unknown Rx Allergy/AdvReac Type Severity Reaction Status Date / Time No Known Allergies Allergy Verified 04/22/24 21:44 Surgical History History of appendectomy Social History Smoking Status: Never smoker ROS ROS ED Constitutional Constitutional ED: Denies body ache(s), chills, fatigue, fever(s), malaise or sweats Eyes Eyes: Denies change in vision ENT ENT ED: Denies sore throat Cardiovascular Cardiovascular: Denies chest pain Respiratory/Chest Respiratory/Chest: Denies cough or dyspnea Gastrointestinal Gastrointestinal: Denies abdominal pain, nausea or vomiting Musculoskeletal Musculoskeletal: Reports extremity pain; Denies neck pain Integumentary Reports rash and wounds; Denies Abrasions Neurologic Neurologic: Denies paresthesias or weakness Endocrine Endocrinology: Denies polydipsia or polyuria EXAM Physical Exam Const Vital Signs: 04/22/24 21:44 Temperature 98.3 F Temperature Source Oral Pulse Rate 61 Respiratory Rate 15 Blood Pressure 206/75 H Blood Pressure Mean 118 Pulse Ox 99 Oxygen Delivery Method Room Air Positive well nourished and well developed General Appearance ED: well developed and NAD Neck full ROM and supple Resp normal respiratory effort and clear to auscultation bilaterally Cardio regular rate, regular rhythm and no murmurs Rate: Negative for tachycardic Back/Spine normal ROM and normal to inspection Extremity Extremity Narrative: See below for wound on the left montez and some surrounding erythema and tenderness. No induration. No abscess. No lymphangitis. All compartment soft and nondistended. Full range of motion of the ankle and the knee without difficulty. Some edema in the foot but that is nontender. Good palpable pulses distally in the feet. Neuro oriented x3, no focal motor deficits and no sensory deficits noted Sensorium / Orientation: alert Psych mental status grossly normal and thought process normal Skin Skin Narrative: Superficial skin tear left lower leg montez, nonbleeding dermis exposed with surrounding erythema and tenderness. Some distal edema, nothing proximal to the wound, no palpable cords. No calf tenderness. Erythema is not circumferential. There is no fluctuance or discharge expressible. Rashes: no rashes MDM MDM MDM Narrative Medical decision making narrative: I do believe this is an infected superficial wound. It seems localized. She has no systemic symptoms. She has a history of some renal insufficiency is relatively mild, I do not think that needs to be emergently repeated and I do not think she needs blood cultures or emergent blood work. I think reasonable to put her on antibiotics and give her some parenteral antibiotics here prior to being discharged. Gave her a dose of IM Ancef, prescribed her cephalexin, discussed putting antibiotic ointment on this as well and protecting it, keeping it clean, and following up after the weekend. Of note her blood pressure is high, 206/75 in triage. I have nurses repeat this. She is asymptomatic from it. Close outpatient follow-up advised with regards. She is on antihypertensives advised to continue History & Record Review Additional record(s) reviewed:: Prior labs (1 year ago creatinine 1.34 EGFR 40) Discharge Plan Triage Chief Complaint: Wound ED Provider: Jose Fung Dx/Rx/DC Orders Clinical Impression: Infected skin tear, Type 2 diabetes mellitus, Episode of hypertension, Chronic kidney insufficiency Instructions: ED Wound Check (Infection) Prescriptions: New cephalexin 500 mg capsule 500 mg PO TID Qty: 30 0RF No Action triamterene-hydrochlorothiazid 1 TABLET tablet 0.5 tab PO DAILY Metoprolol Succinate 25 MG Tab.Er.24h 25 mg PO DAILY aspirin 81 MG tablet 81 mg PO BIDCM 0RF ergocalciferol (vitamin D2) 50,000 UNIT capsule 50,000 unit PO Q7D Qty: 7 0RF prednisone 20 mg tablet 20 mg PO DAILY 7 Days Qty: 7 0RF oxycodone-acetaminophen [Percocet] 5-325 mg tablet 1 tab PO Q6H PRN (Reason: pain) 3 Days Qty: 12 0RF Primary Care Provider: Lety Kent NP Referrals: Lety Kent NP, [facility] [Primary Care Provider] - 3-5 Days Print Language: Sami Disposition Disposition: Home, Self Care
[2024-04-22] MEDS: Cefazolin 1 GM/5 ML Vial IM (22:27)
[2024-04-22 22:36] VITALS: BP 158/51; PULSE 71; RESP 16; TEMP 36.9; O2SAT 95
== END 2024-04-22 22:46 | disposition home or self-care (01) ==
LOC: ED 22:17
PROVIDERS: Emergency Provider Emergency Medicine; PCP Nurse Practitioner Family; Visit Provider Emergency Medicine
DX: S81.812A Laceration without foreign body, left lower leg, initial encounter (principal); E11.22 Type 2 diabetes mellitus with diabetic chronic kidney disease; L08.9 Local infection of the skin and subcutaneous tissue, unspecified; W22.8XXA Striking against or struck by other objects, initial encounter; N18.9 Chronic kidney disease, unspecified; I12.9 Hypertensive chronic kidney disease with stage 1 through stage 4 chronic kidney disease, or unspecified chronic kidney disease; Z79.82 Long term (current) use of aspirin; Z79.899 Other long term (current) drug therapy
CPT/HCPCS: 96372; 99282

== ENCOUNTER → 2025-01-03 | Outpatient (CLI) | payer OTHER, SELFPAY ==
--- OUTSIDE RECORDS SUMMARY | 2025-01-03 12:55 | XMS RPT_ITS | CCD ---
Author Organization [facility] Care Team Providers Care Fabrication Supervisor Name Role Phone MC BROUSSARD Admitting Unavailable MC BROUSSARD Attending Unavailable MC BROUSSARD Primary Care Unavailable MC BROUSSARD Consulting Unavailable PROVIDER, UNKNOWN Consulting Unavailable MC BROUSSARD DO Primary Care Unavailable STALLING DO, CHRISTOPHER Attending Unavail able STALLING DO, CHRISTOPHHANSA Attending Unavail able JAVY GUILLORY MD Consulting Unavailable MC BROUSSARD DO Primary Care Unavailable STALLING DO, CHRISTELIDA Admitting Unavail able SANDRA CHARLES MD Consulting Unavailabl e Yoli MOTORCYCLE DELIVERY DRIVER, Lety Kya Referring Unavailabl e Yoli MOTORCYCLE DELIVERY DRIVER, [facility] Primary Care Unavailabl e Yoli MOTORCYCLE DELIVERY DRIVER, Lety Kya Attending Unavailabl e Referred, Self Attending Unavailable Yoli MOTORCYCLE DELIVERY DRIVER, [facility] Primary Care Unavailabl e Robert Jackson Attending Unavailable [place] MOTORCYCLE DELIVERY DRIVER, [facility] Unavailabl e SAVELLI, S1 Referring Unavailable Jon Pichardo Attending Unavailable Kapphansa MOTORCYCLE DELIVERY DRIVER, [facility] Primary Care Unavailabl e SAVELLI, S1 Attending Unavailable SAVELLI, S1 Referring Unavailable Yoli MOTORCYCLE DELIVERY DRIVER, [facility] Primary Care Unavailabl e Jose Fung Attending Unavailable Yoli MOTORCYCLE DELIVERY DRIVER, [facility] Primary Care Unavailabl e Problems Active Problems Problem Classification Problem Date Documented Da te Episodic/Chronic Chronic kidney disease (3 sources) Chronic kidney disease, stage 3 (moderate); Translations: [Chronic kidney disease, stage 3 (moderate)] Onset: 07-05-2019 Chronic Occlusion or stenosis of precerebral arteries (1 source) Occlusion and stenosis of bilateral carotid arteries; Translations: [Occlusion and stenosis of bilateral carotid arteries] Onset: 01-02-2025 Chronic Past or Other Problems Problem Classification Problem Date Documented Da te Episodic/Chronic Open wounds of extremities (1 source) Unspecified open wound, left lower leg, initial encounter; Translations: [Unspecified open wound, left lower leg, initial encounter] Onset: 05-03-2024 Episodic Results Test Name Value Interpretation Reference Range Facility Emergency Department Summary on 04-22-2024 Emergency Department Summary [facility] Medical Records Department [address] [place] [address] Emergency Department Summary 04/22/24 MR#: [id number] Acct: [id number] Name: SALMA CHAUHAN Rep #: [id number] : 1940 83 From: Jose Fung MD PCP: Lety Kent, MOTORCYCLE DELIVERY DRIVER-C Status:PRE ER Location: ED HPI History of Present Illness Chief Complaint: Wound Informant: patient and family (x2) Narrative Narrative: 83-year-old female states that 1 week ago she sustained a wound to her left leg, she was getting into a van and her foot slipped and she scraped her leg on the edge. Couple days later it started getting a little red and sore. They present now to the ED, first time they have had this evaluated by , Wednesday night because they did not want to let it go over the weekend due to fear for infection. She has had no systemic symptoms, fevers, chills. There has been little to no discharge at all, she has had a piece of gauze on it but no at home treatments otherwise. Does not usually check her blood sugars, she is a diabetic, but she checked it today and it was 122. She denies any polyuria polydipsia. [facility] Medical History HTN (hypertension) Gout Cancer Diabetes Home Medications ???Medication ???Instructions ???Recorded ???Last Taken ???Type Metoprolol Succinate 25 mg PO DAILY blood pressure 01/2302/18/19 History triamterene 75 0.5 tab PO DAILY blood pressure 02/18/19 History mg-hydrochlorothiazide 50 mg tablet aspirin 81 mg tablet,delayed 81 mg PO BIDCM 02/21/19 Unknown Rx release ergocalciferol (vitamin D2) 1,250 50,000 unit PO Q7D #7 caps Unknown Rx mcg (50,000 unit) capsule oxycodone-acetaminophen 5 mg-325 1 tab PO Q6H PRN pain 3 days #12 0 06/19/23 Unknown Rx mg tablet (Percocet) tabs prednisone 20 mg tablet 20 mg PO DAILY 7 days #7 tabs 05/24 09/14 Unknown Rx cephalexin 500 mg capsule 500 mg PO TID #30 caps 04/22/24 Un known Rx Allergy/AdvReac Type Severity Reaction Status Date / Time No Known Allergies Allergy Verified 04/22/24 21:44 Surgical History History of appendectomy Social History Smoking Status: Never smoker ROS ROS ED Constitutional Constitutional ED: Denies body ache(s), chills, fatigue, fever(s), malaise or sweats Eyes Eyes: Denies change in vision ENT ENT ED: Denies sore throat Cardiovascular Cardiovascular: Denies chest pain Respiratory/Chest Respiratory/Chest: Denies cough or dyspnea Gastrointestinal Gastrointestinal: Denies abdominal pain, nausea or vomiting Musculoskeletal Musculoskeletal: Reports extremity pain; Denies neck pain Integumentary Reports rash and wounds; Denies Abrasions Neurologic Neurologic: Denies paresthesias or weakness Endocrine Endocrinology: Denies polydipsia or polyuria EXAM Physical Exam Const Vital Signs: 04/22/24 21:44 Temperature 98.3 F Temperature Source Oral Pulse Rate 61 Respiratory Rate 15 Blood Pressure 206/75 H Blood Pressure Mean 118 Pulse Ox 99 Oxygen Delivery Method Room Air Positive well nourished and well developed General Appearance ED: well developed and NAD Neck full ROM and supple Resp normal respiratory effort and clear to auscultation bilaterally Cardio regular rate, regular rhythm and no murmurs Rate: Negative for tachycardic Back/Spine normal ROM and normal to inspection Extremity Extremity Narrative: See below for wound on the left montez and some surrounding erythema and tenderness. No induration. No abscess. No lymphangitis. All compartment soft and nondistended. Full range of motion of the ankle and the knee without difficulty. Some edema in the foot but that is nontender. Good palpable pulses distally in the feet. Neuro oriented x3, no focal motor deficits and no sensory deficits noted Sensorium / Orientation: alert Psych mental status grossly normal and thought process normal Skin Skin Narrative: Superficial skin tear left lower leg montez, nonbleeding dermis exposed with surrounding erythema and tenderness. Some distal edema, nothing proximal to the wound, no palpable cords. No calf tenderness. Erythema is not circumferential. There is no fluctuance or discharge expressible. Rashes: no rashes MDM MDM MDM Narrative Medical decision making narrative: I do believe this is an infected superficial wound. It seems localized. She has no systemic symptoms. She has a history of some renal insufficiency is relatively mild, I do not think that needs to be emergently repeated and I do not think she needs blood cultures or emergent blood work. I think reasonable to put her on antibiotic (more content not included)... Normal [facility] .GFRon 01-22-2024 GFR 48 ml/min/1.73sqm Normal [facility] Comment on above: Result Comment: GFR Population mean for , Non- Americans Ages 20-29 = 116 mL/min/1.73 sq.m. Ages 30-39 = 107 mL/min/1.73 sq.m. Ages 40-49 = 99 mL/min/1.73 sq.m. Ages 50-59 = 93 mL/min/1.73 sq.m. Ages 60-69 = 85 mL/min/1.73 sq.m. Ages 70+ = 75 mL/min/1.73 sq.m. Chronic Kidney Disease: Less than 60 mL/min/1.73 square meters End Stage Renal Disease: Less than 15 mL/min/1.73 square meters Performed By: #### M ORPH, CBC, DIFF, GFR, BMP #### [address] [address] GFR Non- 40 ml/min/1.73sqm Normal [facility] Comment on above: Result Comment: GFR Population mean for , Non- Americans Ages 20-29 = 116 mL/min/1.73 sq.m. Ages 30-39 = 107 mL/min/1.73 sq.m. Ages 40-49 = 99 mL/min/1.73 sq.m. Ages 50-59 = 93 mL/min/1.73 sq.m. Ages 60-69 = 85 mL/min/1.73 sq.m. Ages 70+ = 75 mL/min/1.73 sq.m. Chronic Kidney Disease: Less than 60 mL/min/1.73 square meters End Stage Renal Disease: Less than 15 mL/min/1.73 square meters Performed By: #### M ORPH, CBC, DIFF, GFR, BMP #### [place] [address] .Manual Diffon 01-22-2024 Bands 3.0 % Normal 0.0-5.0 [facility] Comment on above: Performed By: #### M ORPH, CBC, DIFF, GFR, BMP #### [place] [address] Basophil %, Manual 0.0 % Normal 0.0-2.5 [facility] Comment on above: Performed By: #### M ORPH, CBC, DIFF, GFR, BMP #### [place] [address] Basophil, Abs Manual 0.0 10 3/mcL Normal 0.0-0.3 [facility] Comment on above: Performed By: #### M ORPH, CBC, DIFF, GFR, BMP #### [place] [address] Eosinophil %, Manual 0.0 % Normal 0.0-6.0 [facility] Comment on above: Performed By: #### M ORPH, CBC, DIFF, GFR, BMP #### [place] [address] Eosinophil, Abs Manual 0.0 10 3/mcL Normal 0.0-0.7 [facility] Comment on above: Performed By: #### M ORPH, CBC, DIFF, GFR, BMP #### [place] [address] Lymphocyte %, Manual 19.0 % Low 20.0-40.0 [facility] Comment on above: Performed By: #### M ORPH, CBC, DIFF, GFR, BMP #### [place] [address] Lymphocyte, Abs Manual 1.0 10 3/mcL Normal 0.9-4.3 [facility] Comment on above: Performed By: #### M ORPH, CBC, DIFF, GFR, BMP #### [facility] [address] [place] [id number] Monocyte %, Manual 6.0 % Normal 2.0-13.0 [facility] Comment on above: Performed By: #### M ORPH, CBC, DIFF, GFR, BMP #### [facility] [address] [place] [address] Monocyte, Abs Manual 0.3 10 3/mcL Normal 0.1-1.4 [facility] Comment on above: Performed By: #### M ORPH, CBC, DIFF, GFR, BMP #### [facility] [address] [place] [address] Neutrophil %, Manual 72.0 % Normal 50.0-75.0 [facility] Comment on above: Performed By: #### M ORPH, CBC, DIFF, GFR, BMP #### [facility] [address] [place] [address] Neutrophil, Abs Manual 3.7 10 3/mcL Normal 2.3-8.1 [facility] Comment on above: Performed By: #### M ORPH, CBC, DIFF, GFR, BMP #### [facility] [address] [place] [address] Nucleated RBC 0.0 /100 WBC Normal [facility] Comment on above: Performed By: #### M ORPH, CBC, DIFF, GFR, BMP #### [facility] [address] [place] [address] .Morphon 01-22-2024 Platelet Estimate Slt Decreased Normal [facility] Comment on above: Performed By: #### M ORPH, CBC, DIFF, GFR, BMP #### [facility] [address] [place] [address] RBC morphology finding Nom (Bld) Normal Normal [facility] Comment on above: Performed By: #### M ORPH, CBC, DIFF, GFR, BMP #### [facility] [address] [place] [address] A1Con 01-22-2024 Glucose [Mass/Vol] 117 mg/dL High <=114 [facility] Comment on above: Order Comment: docum entation of positive A1c Screening Result Comment: Brittany mated Average Glucose calculated by equation ((28.7xA1C)-46.7) Estimated average glucose (eAG) is a calculated value from Hemoglobin A1C and is leather goods sales representative of the average blood glucose level in the last 2-3 month period. Normal range: less than 114 mg/dL Performed By: #### A 1C #### [facility] [address] [place], [place] [address] HbA1c (Bld) [Mass fraction] 5.7 % Normal [facility] Comment on above: Order Comment: docum entation of positive A1c Screening Result Comment: Inte rpretation of Hgb A1C results: <5.7% Normal 5.7% - 6.4% Prediabetes >6.4% Diabetes Samples from patients with hemolytic anemias or the presence of unstable hemoglobins like HbSS or HbSC will exhibit decreased glycated Hgb due to the shortened life span of the red cells. Results are not reliable in patients with chronic blood loss. Performed By: #### A 1C #### [facility] [address] [place], [place] [address] BMPon 01-22-2024 BUN/Creatinine Ratio 23.4 ratio High 10.0-22.0 [facility] Comment on above: Performed By: #### M ORPH, CBC, DIFF, GFR, BMP #### [facility] [address] [place], [place] [address] Calcium [Mass/Vol] 8.2 mg/dL Low 8.5-10.1 [facility] Comment on above: Performed By: #### M ORPH, CBC, DIFF, GFR, BMP #### [facility] [address] [place], [place] [address] Chloride [Moles/Vol] 104 mmol/L Normal 98-107 [facility] Comment on above: Performed By: #### M ORPH, CBC, DIFF, GFR, BMP #### [facility] [address] [place], [place] [address] CO2 [Moles/Vol] 23 mmol/L Normal 21-32 [facility] Comment on above: Performed By: #### M ORPH, CBC, DIFF, GFR, BMP #### [facility] [address] [place], [place] [address] Creatinine [Mass/Vol] 1.28 mg/dL High 0.55-1.02 [facility] Comment on above: Result Comment: Test ing performed on Siemens Dimension Cushing analyzer using a modified kinetic Alvarez technique. Performed By: #### M ORPH, CBC, DIFF, GFR, BMP #### [facility] [address] [place], [place] [address] Electrolyte Balance 7.0 mEq/L Normal 4.0-15.0 [facility] Comment on above: Performed By: #### M ORPH, CBC, DIFF, GFR, BMP #### [facility] [address] [place], [place] [address] Glucose [Mass/Vol] 144 mg/dL High 70-100 [facility] Comment on above: Performed By: #### M ORPH, CBC, DIFF, GFR, BMP #### [facility] [address] [place], [place] [address] Potassium [Moles/Vol] 4.6 mmol/L Normal 3.5-5.1 [facility] Comment on above: Performed By: #### M ORPH, CBC, DIFF, GFR, BMP #### [facility] [address] [place], [place] [address] Sodium [Moles/Vol] 134 mmol/L Low 136-145 [facility] Comment on above: Performed By: #### M ORPH, CBC, DIFF, GFR, BMP #### [facility] [address] [place], [place] [address] Urea nitrogen [Mass/Vol] 30.0 mg/dL High 7.0-18.0 [facility] Comment on above: Performed By: #### M ORPH, CBC, DIFF, GFR, BMP #### [facility] [address] [place], [place] [address] CBCon 01-22-2024 Erythrocyte distribution width (RBC) [Ratio] 12.9 % Normal 11.5-15.5 [facility] Comment on above: Performed By: #### M ORPH, CBC, DIFF, GFR, BMP #### [place] [address] Hematocrit (Bld) [Volume fraction] 25.5 % Low 34.0-46.0 [facility] Comment on above: Performed By: #### M ORPH, CBC, DIFF, GFR, BMP #### [place] [address] Hgb 8.8 G/dL Low 12.0-16.0 [facility] Comment on above: Performed By: #### M ORPH, CBC, DIFF, GFR, BMP #### [place] [address] MCH (RBC) [Entitic mass] 37.2 pg High 27.0-33.0 [facility] Comment on above: Performed By: #### M ORPH, CBC, DIFF, GFR, BMP #### [place] [address] MCHC 34.4 G/dL Normal 32.0-36.0 [facility] Comment on above: Performed By: #### M ORPH, CBC, DIFF, GFR, BMP #### [place] [address] MCV (RBC) [Entitic vol] 108.0 fL High 80.0-99.0 [facility] Comment on above: Performed By: #### M ORPH, CBC, DIFF, GFR, BMP #### [place] [address] Platelet 126 10 3/mcL Low 150-450 [facility] Comment on above: Performed By: #### M ORPH, CBC, DIFF, GFR, BMP #### [place] [address] Platelet mean volume (Bld) [Entitic vol] 10.3 fL Normal 6.6-10.5 [facility] Comment on above: Performed By: #### M ORPH, CBC, DIFF, GFR, BMP #### [facility] [address] [place], [place] [address] RBC 2.36 10 6/mcL Low 4.10-5.30 [facility] Comment on above: Performed By: #### M ORPH, CBC, DIFF, GFR, BMP #### [facility] [address] [place], [place] [address] WBC 5.2 10 3/mcL Normal 4.5-10.8 [facility] Comment on above: Performed By: #### M ORPH, CBC, DIFF, GFR, BMP #### [facility] [address] [place], [place] [address] XR HIP 2-3 VIEWS RIGHTon XR HIP 2-3 VIEWS RIGHT ORIGINAL EXAMINATION: XRAY two views pelvis and right hip [id number]/29/2024 10:02 am COMPARISON: 12/23/2023 HISTORY: ORDERING SYSTEM PROVIDED HISTORY: Reason for Exam: Post Op, FINDINGS: The right hip has been replaced by a total hip prosthesis that show satisfactory alignment with expected surrounding postop changes. No obvious hardware complication. There is a pre-existing left hip prosthesis. IMPRESSION: Right hip arthroplasty with expected postop changes. Interpreted by: Flex Cardoza MD Preliminary Report By: Flex Cardoza MD Electronically signed By Flex Cardoza MD Dictated Date: 01/21/2024 11:27:53 AM Prelim Date: 01/21/2024 11:28:50 AM Sign Date: 01/21/2024 11:28:50 AM Ordering Provider: ANGELA Carty [facility] 12 Lead EKGon 01-04-2024 12 Lead EKG [facility] [address] [place] [address] 12 Lead EKG 01/04/24 0800 MR#: [id number] Acct: [id number] Name: SALMA CHAUHAN Rep #: [id number] : 1940 83 From: Jon Pichardo MD Attending Dr: ANGELA DURAN Status: REG CLI Ordering : ANGELA DURAN Date: 01/04/24 [facility] Sex: F C Admitted: Test Reason : PREOP Blood Pressure : */* mmHG Vent. Rate : 58 BPM Atrial Rate : 58 BPM P-R Int : 234 ms QRS Dur : 88 ms QT Int : 440 ms P-R-T Axes : 47 -13 80 degrees QTcB Int : 431 ms Sinus bradycardia with 1st degree A-V block Nonspecific ST and T wave abnormality Abnormal ECG Confirmed by TEN CAM, JON ([id number]), loan expeditor [address] ([id number]) on 01/05/2024 8:48:28 AM Referred By: ANGELA DURAN Confirmed By: JON PICHARDO MD 01/05/24 0848 Date Jon Pichardo MD CC: MOTORCYCLE DELIVERY DRIVER-C Lety Kent; ANGELA DURAN Signed Normal [facility] Chest PA and Lateralon 01-03 Chest PA and Lateral [facility] Services [address] [place] [id number] Chest PA and Lateral MR#: [id number] Acct: [id number] Name: SALMA CHAUHAN Rep #: [id number] : 1940 F 83 From: Prakash Jessica DO PCP: WIL Mae Status: REG CLI Study: Chest PA and Lateral Date of Exam: 01/04/24 Exam# [id number] Ordering Dr: ANGELA DURAN [id number] INDICATION: PRE OP EXAMINATION/TECHNIQUE: X-RAY - XR Chest 2 Views COMPARISON: February 18, 2019 FINDINGS: LINES/DEVICES: None. LUNGS: No consolidation, edema or effusion. No pneumothorax. MEDIASTINUM AND CARDIOVASCULAR STRUCTURES: Cardiac silhouette not enlarged. Calcified aortic arch. Central airways and mediastinal contour are unremarkable. BONES AND SOFT TISSUES: Degenerative vertebral changes. RAD/Chest PA and Lateral IMPRESSION: No radiographic evidence of acute cardiopulmonary disease. Electronically Signed: Prakash Jessica, DO at 8:12 EST , CC: WIL Kent; ANGELA DURAN Chemical Research Engineer: Signed Normal [facility] BASIC METABOLIC PANELon 02-0 Anion gap [Moles/Vol] 11.3 mmol/L Normal 11-23 [facility] Comment on above: Performed By: #### B MP #### [facility] [address] [place] [address] Calcium [Mass/Vol] 8.6 mg/dL Normal 8.5-10.1 [facility] Comment on above: Performed By: #### B MP #### [address] [place] [address] Chloride [Moles/Vol] 101 mmol/L Normal 98-107 [facility] Comment on above: Performed By: #### B MP #### [facility] [address] [place] [address] CO2 [Moles/Vol] 24.0 mmol/L Normal 21-32 [facility] Comment on above: Performed By: #### B MP #### [facility] [address] [place] [address] Creatinine [Mass/Vol] 1.40 mg/dL High 0.55-1.02 [facility] Comment on above: Performed By: #### B MP #### [facility] [address] [place] [address] GFR AM 47.1 mL/min [facility] Comment on above: Result Comment: THE NORMAL LEVEL OF GFR VARIES ACCORDING TO AGE, SEX, AND BODY SIZE. A GFR LEVEL OF LESS THAN 60 ML/MIN REPRESENTS LOSS OF THE ADULT LEVEL OF NORMAL KIDNEY FUNCTION. Performed By: #### B MP #### [facility] [address] [place] [address] GFR/1.73 sq M.predicted MDRD (S/P/Bld) [Vol rate/Area] 38.9 mL/min/{1.73_m2} [facility] Comment on above: Performed By: #### B MP #### [address] [place] [address] Glucose [Mass/Vol] 173 mg/dL High 70-100 [facility] Comment on above: Performed By: #### B MP #### [facility] [address] [place] [address] Potassium [Moles/Vol] 3.8 mmol/L Normal 3.5-5.1 [facility] Comment on above: Performed By: #### B MP #### [facility] [address] [place] [address] Sodium [Moles/Vol] 132 mmol/L Low 136-145 [facility] Comment on above: Performed By: #### B MP #### [facility] [address] [place] [address] Urea nitrogen [Mass/Vol] 30.0 mg/dL High 7-18 [facility] Comment on above: Performed By: #### B MP #### [facility] [address] [place] [address] HGB HCTon 03-28-2020 Hematocrit (Bld) [Volume fraction] 27.2 % Low 37.0-47.0 [facility] Comment on above: Performed By: #### H H #### [facility] [address] [place] [address] Hemoglobin (Bld) [Mass/Vol] 9.5 g/dL Low 12.0-16.0 [facility] Comment on above: Performed By: #### H H #### [address] [place] [address] MRDSon 03-28-2020 MRDS Patient name: SALMA CHAUHAN MR#: [id number] Location: [facility] Acc#: [id number] Admit Date: 03/27/20 Discharge Date: 03/28/20 : 1940 Age: 79 Sex: F Dictated By: Angela Duran DO Signing Physician: DICTATED BY: ANGELA DURAN D.O. SIGNING PHYSICIAN: DISCHARGE DATE: 03/28/2020 DATE OF SERVICE: 03/28/2020 CONSULTING PHYSICIAN: Dr. Dumont for medical management. CONDITION ON DISCHARGE: Stable. FINAL DIAGNOSES: 1. Left hip posttraumatic osteoarthritis. 2. Retained hardware, left hip. PROCEDURE: Removal of hardware left hip with conversion to total hip arthroplaty. BRIEF DESCRIPTION OF HOSPITAL STAY: Ms. Chauhan is a 79-year-old female who andrew an intertrochanteric hip fracture fixed by another orthopedic surgeon in [place] over year ago. This was treated with a gamma nail. She subsequently went on to heal her fracture uneventfully, but recently has been developing severe left hip pain. X-rays showed severe left hip osteoarthritis. Recommendation was made for removal of hardware with conversion to total hip arthroplasty. The procedure was performed on March 27, 2020, without complication. The patient was admitted overnight for observation and pain control. She was seen and evaluated on postop day 1 and noted to have adequate pain control and to be medically stable for discharge home. She was ambulating well with physical therapy. She was discharged home on March 28, 2020, without complications. DISCHARGE INSTRUCTIONS: The patient was placed on 325 mg aspirin twice daily fr DVT prophylaxis for 3 weeks postop. She was counseled on dressing and wound care instructions. She may weight bear as tolerated. She will follow up in the office in 2 weeks as previously scheduled for her postop follow-up visit. CATALINO/PI @ 09:20 @ 08:21 # [id number] ____ ANGELA DURAN D.O. Electronically Signed Date/Time: 04/18/20 1302 Electronically Signed Date/Time: 04/18/20 1302 [facility] HIP W/PEL 2 OR 3 VIEW-LEFTon 03-27-2020 HIP W/PEL 2 OR 3 VIEW-LEFT SALMA CHAUHAN Female [id number] Ordering physician: Harlan Duran LOC:[id number] Attending physician: Harlan Duran 1940 79 DOS: 03/27/20 Acc#: [id number] Exam/Proc: HIP W/PEL 2 OR 3 VIEW-LEFT Dept: RADIOLOGY X-ray pelvis and left hip 3 views HISTORY: Postoperative follow-up COMPARISON: None FINDINGS: Skin oleg overlie the operative site. The prosthetic components appear well seated. There is no acute adjacent fracture identified. There are mild degenerative changes of the lower lumbar spine and at the right hip and symphysis pubis. Vascular calcification also seen. IMPRESSION: Expected postoperative findings. Electronically signed by: Link Cobb MD 03/27/2020 3:17 PM [facility] REPORT SIGNATURE ON FILE Electronically Signed Date/Time: 03/27/201516 Dictated Date/time: 03/27/201516 CC: [facility] ORTHO.OPon 03-27-2020 ORTHO.OP SALMA CHAUHAN [id number] Attending provider: ADM SERGIO HoffmanDE [id number] Harlan Duran 1940 79 DOS: Ortho Operative Report - Ortho Post-op Date of Service: 03/27/20 [place]mer: Robert Quick PA-C. The PA assisted with patient and extremity positioning, retraction of soft tissues, dislocation and reduction of the hip, and wound closure. The PA was integral to the case. Preoperative Diagnosis: 1. Post traumatic osteoarthritis left hip 2. Retained hardware left hip Postoperative Diagnosis: 1. Posttraumatic osteoarthritis left hip 2. Retained hardware left hip Procedure: Removal of hardware left hip with conversion to total hip arthroplasty Operative Procedure/Findings: Brief clinical indication: Ms. Chauhan is a 79-year-old female who previously had a left intertrochanteric hip fracture fixed with a short cephalomedullary nail by an orthopedic surgeon in [place], [place]. This went on to heal uneventfully. Over time, she began developing pain in her anterior hip and groin. She presented back to that orthopedic surgeon where x-rays showed severe left hip osteoarthritis with end-stage [id number] change of her hip joint. That surgeon told her that she needed the zeb removed and converted to a hip replacement. He did tell her that he did not feel necessarily comfortable doing that surgery, and she presented to me as a second opinion. Recommendation was made for left hip removal of hardware with conversion to total hip arthroplasty. Surgery was discussed in detail including the risks, benefits, alternatives, and expected perioperative and postoperative courses. All questions were answered to her satisfaction. She was agreeable with proceeding with surgery. Procedure: Patient was met in the preoperative area. Informed consent was obtained. The left hip was marked. Patient was then transferred into the operating room placed on the operating table in supine position. She was then placed under general anesthesia by the anesthesia team. She was then safely transferred into the lateral position and secured in the lateral position using padded pegs on the pegboard. All bony prominences were well-padded. An axillary roll was placed beneath the right axilla. The left lower extremity was then prepped and draped in standard sterile fashion. Timeout was then performed. A gently curved incision was then made over the lateral aspect of the left hip. Skin and subcutaneous tissue were sharply incised. Hemostasis was obtained with the Bovie. Dissection was then carried out down onto the fascial layer. Fascial layer was split in line with the incision using a Bovie. Charnley retractor was placed deep to the fascial layer. Short external rotators and posterior capsule were identified. These were released in 1 layer in an L-shaped capsulotomy. Piriformis and posterior capsule were tagged with a tag suture for later repair and were retracted posteriorly. The hip was then gently dislocated posteriorly. The hip was then relocated and attention was turned to removing the zeb. C-arm was brought in to localize the distal locking screw. A small 1 cm incision was made over the distal locking screw. Dissection was carried out down onto the lateral femur. Screwdriver was then used to remove the distal locking screw. Screwdriver was then used proximally to unlock the set screw from the compression screw. Compression screw was then removed laterally using appropriate screwdriver. The nail was then noted to be completely loose, and a rongeur was used to grasp the top of the nail and remove it from the femur. The hip was again carefully dislocated. Retractors were placed along the margins of the femoral neck. An oscillating saw was then used to perform a femoral neck cut at an appropriate level. Femoral head was removed. This was sized, noted to be about 46 mm in diameter. Reaming was then begun with a size 44 mm reamer which was used to gently medialized. Reaming was then carried out in a stepwise manner up to a 53 mm reamer. This reamer had excellent fit within the prepared acetabulum. Upon removal of the reamer, the bone was noted to have good circumferential bleeding within the acetabulum. The hip was then soaked with irrisept irrigation and then copiously irrigated with normal saline through pulse lavage and suctioned dry. Final size 54 mm acetabular shell was then put in place within the prepared acetabulum and fully seated using an impactor and mallet. This was noted to have excellent initial fixation. 2 screws were then drilled and filled into the posterior superior safe zone. These were both noted to have excellent fixation. Shell was again copiously irrigated and suctioned dry. The final elevated high wall liner was placed into the acetabular shell. Elevated portion of the liner was placed posteriorly. This was impacted using appropriate impactor and a mallet. This was checked visually as well as with a tonsil and noted to be fully locked into the acetabular shell. Attention was then turned back to the femur. Femoral canal was reamed using an opening reamer. This was also used to lateralize proximally. Reaming was then carried out in a stepwise manner up to a size 16 reamer. This was advanced by hand on a T- handle and noted to have excellent cortical fit. Reamer was then removed. Trial 150 mm x 16 mm stem was then advanced into the femur and noted to have excellent fit. Trial was removed. Femoral canal and hip were copiously irrigated and suctioned dried. Final 16 x 150 mm STS distal stem was then impacted into place into the femoral canal noted to have excellent fit. Body reamers were then advanced over top of the guidepin. Size a reamer was noted to have good fit. A size A by 50 mm trial proximal body with standard offset was then assembled onto the femoral stem and placed in appropriate anteversion. Various trial head and necks were then trialed. Ultimately a -6 mm femoral head was noted to be the appropriate size. With this trial in place, the hip had full range of motion with excellent stability. Leg lengths were checked referencing the patient's bilateral patellas and calcanei and noted to be approximately equal intraoperatively. Trial components were again dislocated. Trial head and body were removed. The hip was again copiously irrigated and suctioned dry. Final size 8 x 50 mm body was assembled onto the femoral stem, placed in appropriate anteversion, and impacted into the taper of the stem. Setscrew was then used to secure the proximal body. Trunnion was cleaned and dried with a clean lap sponge. Final head was assembled onto the trunnion and impacted using impactor and a mallet. This was checked manually and noted to be fully locked onto the femoral stem. The hip was again reduced, taken through range of motion, noted to have excellent stability. The hip was then soaked with irrisept irrigation and then copiously irrigated with normal saline through pulse lavage and suctioned dry. Posterior capsule and piriformis were repaired using a #5 Ethibond. Small split in the abductor muscle from needle insertion and subsequent removal was repaired using a #5 FiberWire. Fascial layer was closed using a #2 Quill suture. Subcutaneous fat layer was closed using #0 Vicryl. Subcutaneous layer was closed using 2-0 Vicryl. Skin was closed using oleg. A clement dressing was applied to the incision site. Anesthesia was reversed via the anesthesia staff. Patient was transferred back to the hospital bed and subsequently to the PACU in stable condition. Patient tolerated the procedure well without complications. Implants: Yes Implant(s) Type/Description: Biomet G7 acetabular shell size 54 mm in diameter with liner size F. G7 Vivact-E high wall polyethylene liner with 40 mm inner diameter. Zakiya modular revision hip system, 16 x 150 mm STS distal stem, size a by 50 mm proximal body with standard offset and a type I taper, 40 mm Biolox ceramic femoral head. -6 mm taper adapter. Anesthesia Type: General Local Anesthesia: Yes Anesthesiologist: Silvano Cabezas D.O. Estimated Blood Loss: 200 mL Complications: No Specimens: Yes Specimens: Explanted femoral zeb which will be given back to the patient. Also femoral head, which will be discarded per policy. Tourniquet Time: Not applicable Counts: Sponge and needle counts were correct Condition: Pt to PACU in stable condition Dictated By: Angela Duran DO Dictated Date/Time:03/27/20 1538 Electronically Signed Date/Time: 03/27/20 1555 [facility] PCM.CONSon 03-27-2020 PCM.CONS SALMA CHAUHAN Femkatherine jesus [id number] Attending provider: ADM [address] [id number] Harlan Duran 1940 78 DOS: Medical Consultation - Date of Service Date of Service: 03/27/20 (Consult requested by Dr. Duran for medical management) - History of Present Illness Reason for Visit: Left total hip replacement for osteoarthritis History of Present Illness: 79-year-old female with past medical history of HBrought in electively since she has left hip loose dre total hip arthroplasty by Dr. Duran. Seen in her room has no chest pain, shortness of breat h, pain is well controlled, discussed about her treatment plan.ypertension(poorly controlled 194/69 today), type 2 diabetes mellitus (NIDDM), history of WI (2007), iron deficiency anemia, and elderly (age >75). - Review of Systems Constitutional: Denies: Fever, Chills, Sweats, Weakness, Malaise, Weight Gain, Weight Loss, Other Eyes: Denies: Pain, Vision Change, Conjunctivae Inflammation, Eyelid Inflammation, Redness, ED, Other ENT: Denies: Ear Pain, Ear Discharge, Hearing Impaired, Nose Pain, Nose Discharge, Nose Congestion, Mouth Pain, Mouth Swelling, Throat Pain, Throat Swelling, Other Respiratory: Denies: Cough, Dry, Shortness of Breath, Hemoptysis, SOB with Excertion, Pleuritic Pain, Sputum, Wheezing, Other Cardiovascular: Denies: Chest Pain, Palpitations, Orthopnea, Paroxysmal Noc. Dyspnea, Edema, Light Headedness, Other, 8 Gastrointestinal: Denies: Nausea, Vomiting, Abdominal Pain, Diarrhea, Constipation, Melena, He matochezia, Other, 9 Musculoskeletal: Denies: Neck Pain, Shoulder Pain, Arm Pain, Back Pain, Hand Pain, Leg Pain, Foot Pain, Other Skin: Denies: Rash, Lesions, Deangelo, Bruising, EB, Other Neurological: Denies: Weakness, Numbness, Incoordination, Change in Speech, Confusion, Seizures, Other Psychiatric: Denies: Anxiety, Depression, Page, Dementia, Hallucination, Suicidal Ideation, Other Review of Systems: A twelve point review of systems was performed, is negative, except as stated above. - Past Medical/Surgical History General History: Yes: Hypertension, Diabetes Denies: Myocardial Infarction, Asthma, COPD, CVA, Anxiety, Depression Cardiovascular: Yes: Hypertension No: WI, Hyperlipidemia, Hypercholesterolemia Central Nervous System: No: CVA Gastrointestinal: No: GERD Hematology/Oncology: No: Anemia Psychological: No: Anxiety, Depression Pulmonary: No: Asthma, COPD, Pulmonary Embolism Endocrine: No: Hyperthyroidism, Hypothyroidism Comment Only: Diabetes (Y) Dermatology: Yes: Other (skin cancer, uterine cancer) No: MRSA Surgical History: Yes: Other ( Left hip surgery) - Family History Family History: Father- DM, HTN, WI - Psychosocial History Smoking Status: Never Smoker Hx Alcohol Use: No Drugs: None Living Conditions: Alone (with family) - Medications Home Medications: Ascorbic Acid [Vitamin C] 500 mg PO DAILY 02/29/20 [Confirmed 03/27/20] Aspirin [Aspirin 81] 81 mg PO DAILY 02/29/20 [Confirmed 03/27/20] Cholecalciferol [Vitamin D] 1,000 unit PO DAILY 02/29/20 [Confirmed 03/27/20] Curalin 2 tab PO DAILY PRN 02/29/20 [Confirmed 03/27/20] Dicyclomine HCl [Dicyclomine Hydrochloride] 10 mg PO Q6H PRN 02/29/20 [Confirmed 03/27/20] Ibuprofen [Hm Ibuprofen] 200 mg PO Q6H PRN 02/29/20 [Confirmed 03/27/20] Metoprolol Tartrate [Lopressor] 50 mg PO DAILY 02/29/20 [Confirmed 03/27/20] Denver-3 Fatty Acids [Denver-3] 1,000 mg OR DAILY 02/29/20 [Confirmed 03/27/20] Aspirin [Aspirin 325 mg *] 325 mg PO BID #40 tab 03/27/20 Docusate Sodium [Colace] 100 mg PO BID PRN PRN #60 cap 03/27/20 Naproxen 500 mg PO Q12H PRN #60 tab 03/27/20 Oxycodone W/ APAP 5-325 mg [Percocet 5-325 mg *] 1 tab PO Q6H PRN PRN 7 Days #28 tab 03/27/20 Triamterene Hydrochlorothiaz [Maxzide 75-50 mg] 0.5 tab PO DAILY 03/27/20 [Confirmed 03/27/20] - Allergies Allergies/Adverse Reactions: Allergy/AdvReac Type Severity Reaction Status Date / Time No Known Drug Allergy Allergy Verified 02/29/20 11:41 - Physical Exam Vital Signs: Vital Signs (Last Documented) Temperature (celsius) 35.7 C Temperature Source Temporal Artery Pulse Rate [Left] 61 Pulse Rate 50 Respiratory Rate 12 O2 Sat by Pulse Oximetry 100 Oxygen Flow Rate 1 Blood Pressure [Right Arm] 166/74 Blood Pressure 151/63 General Appearance: awake, alert, no apparent distress Eyes: PERRL, conjunctivae clear, no discharge Head, Ears, Nose, and Throat: pharynx normal Neck: supple, non-tender, no cervical lymphadenopathy Respiratory: lungs clear, no wheezes, rhonchi, or rales, no respiratory distress Cardiovascular: regular rate, regular rhythm, S1/S2, no gallop, no rub, no JVD Abdomen/GI: non tender, soft, nondistended, normal bowel sounds, no organomegaly Pulses: Radial: 2+, Posterior Tibial: 2+, Dorsalis Pedis: 2+ Neurologic: no motor/sensory deficits, normal strength, normal sensation, cdl a driver II-XII grossly intact w/ no focal defects Psychiatric: oriented X 3, calm, normal affect Skin: warm/dry, normal color - Laboratories Diagnostics Laboratory Results: 02/29/20 Unknown Urine Culture - Final Urine, Clean Catch Escherichia Coli Mixed Gram Positive Organisms CBC BMP 02/29/20 11:39 02/29/20 11:45 Diagnostic Reports: Acc#: [id number] Exam/Proc: HIP W/PEL 2 OR 3 VIEW-LEFT Dept: RADIOLOGY X-ray pelvis and left hip 3 views HISTORY: Postoperative follow-up COMPARISON: None FINDINGS: Skin oleg overlie the operative site. The prosthetic components appear well seated. There is no acute adjacent fracture identified. There are mild degenerative changes of the lower lumbar spine and at the right hip and symphysis pubis. Vascular calcification also seen. IMPRESSION: Expected postoperative findings. Electronically signed by: Link Cobb MD 03/27/2020 3:17 PM [facility] REPORT SIGNATURE ON FILE Electronically Signed Date/Time: 03/27/20 1517 Dictated Date/time: 03/27/20 1517 - Assessment Plan Assessment Plan: Left total hip arthroplasty: Continue with pain medications IV morphine and Percocet, DVT prophylaxis adult aspirin 325 mg p.o. twice daily, physical therapy, 2.Hypertension,Continue with metoprolol 50 mg daily. 3.Diabetes mellitus (NIDDM),Diet controlled, last hemoglobin A1c 5.2. 4.history of WI (2007),On baby aspirin 81 mg p.o. daily 5.Iron deficiency anemia, and elderly (age >75).Not a issue. Dictated By: David Dumont MD Dictated Date/Time:03/27/20 1838 Electronically Signed Date/Time: 03/27/20 1849 [facility] .[place] 03-27-2020 .SALMA HERNANDEZ [id number] Ordering physician: ADM HILL 3WA [id number] Attending physician: Harlan Duran 1940 79 DOS: Anesthesia Assessment - Procedure NPO since: 1899 PreProcedure Diagnosis: left hip orthopedic hardware Surgeon: julien Procedure to be Performed: left hip removal of hardware and conversion to total hip arthroplasty - Anesthesia History Hx Anesthesia Reactions: No Risk Factors-PostOp Nausea/Vomiting: Female, Nonsmoker, Postoperative Opioids Delayed Emergence: No Difficulty with Intubation: No Resistant to medications: No - Surgical History Name of Surgery/Procedure: appy, hyster, orif hip - Cardiovascular History Hx Cardiac Disorders: No Hx Hypertension: Yes Patient Taking PO/IV Beta Blockers: Yes Date Last Beta Lester Taken: 03/27/20 Time Last Beta Lester Taken: 05:30 - Endocrine/ History Hx Endocrine Disorders: Yes Hx Diabetes: Yes Hx Hyperthyroidism: No Hx Hypothyroidism: No Hx Genitourinary: No Hx Renal Disease: No Hx Hypercholesterolemia: No Body Mass Index (BMI): 24.7 - Respiratory History Hx Respiratory Disorders: No Hx Chronic Obstructive Pulmonary Disease (COPD): No Hx Asthma: No Hx Pulmonary Embolism: No - Stop Bang Assessment Do you snore loudly?: No Do you often feel tired, fatigued, or sleepy during the dayt: No Do you have or are you being treated for high blood pressure: Yes Are you obese/overweight-BMI more than 35kg?: No Is your neck circumference greater than 16 inches?: No Are you a male?: No Are you over 50 years old?: Yes Has anyone observed you stop breathing during your sleep?: No Stop Bang Score: 2 - GI Medical History Hx Gastrointestinal Disorders: No Hx Hepatitis: No - Musculoskelatal Disorders Hx Musculoskeletal Disorders: Yes Hx Arthritis: Yes Hx Back Pain: Yes - Neurological Disorders Hx Neurological Disorders: No Hx Cerebrovascular Accident: No Hx Migraines: No - Psych Medical History Hx Psychiatric Problems: No Hx Depression: No Hx Anxiety: No - Heme Medical History Hx Blood Disorders: No Hx Anemia: No - Other Medical History Hx Hospitalization: No Hx Cancer: Yes (skin/uterine) Hx Blood Transfusions: No Smoking Status: Never Smoker Hx Alcohol Use: No Recent URI: No - Assessment Heart Sounds: S1 S2 Breath Sounds: Clear Airway Maintained: Yes Pain Score: 3 Temperature (celsius): 36.3 C Pulse Rate: 58 Respiratory Rate: 18 O2 Sat by Pulse Oximetry: 99 Blood Pressure: 168/77 Height: 1.68 m Weight (kg): 69.6 kg EKG Reviewed: Yes Labs Reviewed: Yes - Airway MAL: 2 Condition of Teeth: Dentures Upper, Dentures Lower - Anesthesia Plan of Care ASA Class: ASA 2 Anesthesia Type: GETA VAP: If any of the above risk factors are selected Hi-Lo Endotracheal Tubes will be considered and preoperative oral care will be completed. Arterial Line: No Central Line: No Type of Block Anesthesia: None Post Op Pain Control: Parental IM/IV - Anesthesia Notes Anesthesia Notes: Yes Anesthesia Consult: Complete Active Medications: Bupivacaine HCl (Or-Bupivacaine 0.25% 30 Ml Vial) 0 ml LOCAL PRN PRN PRN Reason: IN SURGERY Stop: 04/01/20 00:59 Sodium Chloride (0.9% Nacl) 3,000 mls @ 3,000 mls/hr IRR .Q1H PRN PRN Reason: SURGERY Stop: 04/01/20 00:59 Sodium Chloride (0.9% Nacl) 3,000 mls @ 3,000 mls/hr IRR .Q1H PRN PRN Reason: SURGERY Stop: 04/01/20 00:59 Lactated Ringer's (Lr) 1,000 mls @ 10 mls/hr IV CONTINUOUS SANTOS Stop: 04/01/20 05:59 Last Admin: 03/27/20 11:59 Dose: 10 mls/hr Documented by: Ketorolac Tromethamine (Or-Ketorolac Tromethamine 30 Mg/Ml Vial) 0 mg INJ PRN PRN PRN Reason: SURGERY Stop: 04/01/20 00:59 Non-Formulary Medication (Nozin 1 Ea Swab) 1 ea T Q12HR SANTOS Stop: 04/01/20 08:59 Sodium Chloride (Or-0.9% Nacl Irrigation Bot 1,000 Ml) 1,000 ml IRR CONTINUOUS PRN PRN Reason: PRN Stop: 04/01/20 00:59 Sterile Water (Or-Water For Irrigation Bot 1000 Ml) 1,000 ml IRR CONTINUOUS PRN PRN Reason: PRN Stop: 04/01/20 00:59 Tranexamic Acid (Or-Tranexamic Acid 100 Mg/Ml 10 Ml Vial) 1,000 mg STOCK PRN PRN PRN Reason: IN SURGERY IF ORDERED Stop: 04/01/20 00:59 Home Medications: Ascorbic Acid [Vitamin C] 500 mg PO DAILY 02/29/20 [Confirmed 03/27/20] Aspirin [Aspirin 81] 81 mg PO DAILY 02/29/20 [Confirmed 03/27/20] Cholecalciferol [Vitamin D] 1,000 unit PO DAILY 02/29/20 [Confirmed 03/27/20] Curalin 2 tab PO DAILY PRN 02/29/20 [Confirmed 03/27/20] Dicyclomine HCl [Dicyclomine Hydrochloride] 10 mg PO Q6H PRN 02/29/20 [Confirmed 03/27/20] Ibuprofen [Hm Ibuprofen] 200 mg PO Q6H PRN 02/29/20 [Confirmed 03/27/20] Metoprolol Tartrate [Lopressor] 50 mg PO DAILY 02/29/20 [Confirmed 03/27/20] Denver-3 Fatty Acids [Denver-3] 1,000 mg OR DAILY 02/29/20 [Confirmed 03/27/20] Triamterene Hydrochlorothiaz [Maxzide 75-50 mg] 0.5 tab PO DAILY 03/27/20 [Confirmed 03/27/20] 02/29/20 02/29/20 03/27/20 11:39 11:45 12:09 WBC 3.9 L RBC 3.31 L Hgb 11.8 L Sodium 138 Potassium 4.8 BUN 33.0 H Creatinine 1.00 Glucose 88 POC Glucometer 89 Allergies: No Known Drug Allergy Allergy (Verified 02/29/20 11:41) 03/27/20 1215 Dictated By: Silvano Cabezas DO Electronically Signed Date/Time: 03/27/20 1218 [facility] POST.ANon 03-27-2020 POST.SALMA FRIED [id number] Ordering physician: ADM SERGIO MANUEL [id number] Attending physician: Harlan Duran 1940 79 DOS: Anesthesia Post Op Assessment - Post Procedure Vital Signs Blood Pressure: 168/77 Pulse Rate: 58 Respiratory Rate: 18 Temperature (celsius): 36.3 C O2 Sat by Pulse Oximetry: 99 - Post Anesthesia Patient Orientation: Person, Place, Time, Location/Situation Consciousness on discharge: Fully awake Post Op Nausea/Vomiting: No Pain Controlled: Yes Circulation on Discharge: BP +/- 20% of pre-anesthesia level Jak Score: 10 No Complications: Yes Cardiopulmonary Status Stable: Yes 03/27/201604 Dictated By: Valentin Shearer MD Electronically Signed Date/Time: 03/27/20 1606 [facility] BASIC METABOLIC PANELon Anion gap [Moles/Vol] 10.0 mmol/L Low 01-14 [facility] Comment on above: Performed By: #### B ####[address] [address] Calcium [Mass/Vol] 9.6 mg/dL Normal 8.5-10.1 [facility] Comment on above: Performed By: #### B MP ####[address] [place] [address] Chloride [Moles/Vol] 107 mmol/L Normal 98-107 [facility] Comment on above: Performed By: #### B MP ####[address] [place] [address] CO2 [Moles/Vol] 26.0 mmol/L Normal 21-32 [facility] Comment on above: Performed By: #### B MP ####[address] [place] [address] Creatinine [Mass/Vol] 1.00 mg/dL Normal 0.55-1.02 [facility] Comment on above: Performed By: #### B MP ####[address] [place] [address] GFR AM > 60.0 Normal [facility] Comment on above: Result Comment: THE NORMAL LEVEL OF GFR VARIES ACCORDING TO AGE, SEX, AND BODY SIZE. A GFR LEVEL OF LESS THAN 60 ML/MIN REPRESENTS LOSS OF THE ADULT LEVEL OF NORMAL KIDNEY FUNCTION. Performed By: #### B MP ####[address] [place] [address] GFR/1.73 sq M.predicted MDRD (S/P/Bld) [Vol rate/Area] 53.8 mL/min/{1.73_m2} Normal [facility] Comment on above: Performed By: #### B MP ####[address] [place] [address] Glucose [Mass/Vol] 88 mg/dL Normal 70-100 [facility] Comment on above: Performed By: #### B MP ####[address] [place] [address] Potassium [Moles/Vol] 4.8 mmol/L Normal 3.5-5.1 [facility] Comment on above: Performed By: #### B MP ####[address] [place] [address] Sodium [Moles/Vol] 138 mmol/L Normal 136-145 [facility] Comment on above: Performed By: #### B MP ####[address] [place] [address] Urea nitrogen [Mass/Vol] 33.0 mg/dL High 7-18 [facility] Comment on above: Performed By: #### B MP ####[address] [place] [address] CBC with AUTO DIFFon 021 BAS0 % 1.00 % Normal 0-2 [facility] Comment on above: Performed By: #### C BC ####[address] [place] [address] Basophils (Bld) [#/Vol] 0.0 10*3/uL Normal 0-0.1 [facility] Comment on above: Performed By: #### C BC ####[address] [place] [address] Eosinophils (Bld) [#/Vol] 0.2 10*3/uL Normal 0.0-1.80 [facility] Comment on above: Performed By: #### C BC ####[address] [place] [address] Eosinophils/100 WBC (Bld) 4.9 % Normal 0-8 [facility] Comment on above: Performed By: #### C BC ####[address] [place] [address] GRAN # 1.8 K/uL Low 2.2-9.1 [facility] Comment on above: Performed By: #### C BC ####[address] [place] [address] GRAN % 45.5 % Normal 42-80 [facility] Comment on above: Performed By: #### C BC ####[address] [place] [address] Hematocrit (Bld) [Volume fraction] 33.8 % Low 37.0-47.0 [facility] Comment on above: Performed By: #### C BC ####[address] [place] [address] Hemoglobin (Bld) [Mass/Vol] 11.8 g/dL Low 12.0-16.0 [facility] Comment on above: Performed By: #### C BC ####[address] [place] [address] Lymphocytes (Bld) [#/Vol] 1.6 10*3/uL Normal 1.0-4.0 [facility] Comment on above: Performed By: #### C BC ####[address] [place] [address] Lymphocytes/100 WBC (Bld) 41.9 % Normal 16-48 [facility] Comment on above: Performed By: #### C BC ####[facility] [facility] [place] [address] MCH (RBC) [Entitic mass] 35.0 g/dL Normal 31.0-36.0 [facility] [facility] Comment on above: Performed By: #### C BC ####[facility] [facility] [place] [address] MCV (RBC) [Entitic vol] 102.2 fL High 80-97 [facility] Comment on above: Performed By: #### C BC ####[address] [place] [address] MEAN CORPUSCULAR HGB 35.8 pg High 26.0-32.0 [facility] Comment on above: Performed By: #### C BC ####[address] [place] [address] Monocytes (Bld) [#/Vol] 0.3 10*3/uL Normal 0.1-1.7 [facility] Comment on above: Performed By: #### C BC ####[address] [place] [address] Monocytes/100 WBC (Bld) 6.7 % Normal 3-9 [facility] Comment on above: Performed By: #### C BC ####[facility] [facility] [place] [address] Platelet mean volume (Bld) [Entitic vol] 9.1 fL Normal 6.6-10.5 [facility] Comment on above: Performed By: #### C BC ####[facility] [facility] [place] [address] Platelets (Bld) [#/Vol] 143 10*3/uL Normal 140-450 [facility] Comment on above: Performed By: #### C BC ####[facility] [facility] [place] [address] RBC (Bld) [#/Vol] 3.31 10*6/uL Low 4.20-5.50 [facility] Comment on above: Performed By: #### C BC ####[facility] [facility] [place] [address] RED CELL DISTRI WIDTH 13.5 % Normal 11.0-15.5 [facility] Comment on above: Performed By: #### C BC ####[facility] [place] [address] WBC (Bld) [#/Vol] 3.9 10*3/uL Low 4.0-11.0 [facility] Comment on above: Performed By: #### C BC ####[facility] [place] [address] GLYCOHEMOGLOBIN (A1C)on Glucose [Mass/Vol] 103 mg/dL Normal [facility] Comment on above: Performed By: #### G LY #### [facility] [address] [place] [address] HbA1c (Bld) [Mass fraction] 5.2 % Normal [facility] Comment on above: Result Comment: Inte rpretation of Hgb A1C results: <5.7% Normal 5.7% - 6.4% Prediabetes >6.4% Diabetes SAMPLES FROM PATIENTS WITH HEMOLYTIC ANEMIAS OR THE PRESENCE OF UNSTABLE HEMOGLOBINS LIKE HbSS OR HbSC WILL EXHIBIT DECREASED GLYCATED HGB DUE TO THE SHORTENED LIFE SPAN OF THE RED CELLS.RESULTS ARE NOT RELIABLE IN PATIENTS WITH CHRONIC BLOOD LOSS. Performed By: #### G LY #### [facility] [address] [place] [address] PC.CONSULTon 02-29-2020 PC.CONSULT SALMA CHAUHAN [id number] Attending provider: [facility] [id number] Harlan Duran 1940 79 DOS: Perioperative Clinic Consult - Date of Service Date of Service: 02/29/20 - History of Present Illness Reason for Visit: Orthopedic hardware in situ, left hip History of Present Illness: This is a pleasant, 79-year-old, female patient of Dr. Duran, presenting in the clinic today for an evaluation prior to a left hip removal of hardware with conversion to total hip arthroplasty; which is scheduled to occur on 03-27-20. Significant history includes hypertension(poorly controlled 194/69 today), type 2 diabetes mellitus (NIDDM), history of WI (2007), iron deficiency anemia, and elderly (age >75). Patient had a mechanical fall on 02-19-19 and sustained a left hip fracture at that time that required surgical repair. She then completed physical therapy after post operatively. She admits to chronic and progressive left hip pain since the surgery. Her pain is exacerbated with weightbearing activity and when laying down. She admits to left lower extremity weakness but denies any paresthesias or instability. She is using ibuprofen as needed for pain. She sought further evaluation from our orthopedic doctors at [facility] and who obtained repeat xrays and recommended surgical intervention. She offers no other complaints at this time. - Review of Systems Constitutional: Denies: Fever, Chills, Sweats, Malaise Eyes: Denies: Pain, Vision Change ENT: Denies: Ear Pain, Nose Discharge, Nose Congestion, Mouth Pain, Throat Pain Respiratory: Denies: Cough, Shortness of Breath, Hemoptysis, Sputum, Wheezing Gastrointestinal: Denies: Nausea, Vomiting, Abdominal Pain, Diarrhea, Constipation, Hematochezia Genitourinary: Denies: Dysuria, Frequency, Urgency Cardiovascular: Denies: Chest Pain, Palpitations, Edema, Light Headedness Musculoskeletal: Back Pain (lower back pain L>R), Leg Pain (left hip down to left knee). Denies: Neck Pain, Foot Pain Skin: Denies: Rash, Lesions Neurological: Weakness (LLE). Denies: Numbness, Incoordination Psychiatric: Denies: Anxiety, Depression, Suicidal Ideation - Past Medical/Surgical History General History: Yes: Hypertension, Diabetes Denies: Myocardial Infarction, Asthma, COPD, CVA, Anxiety, Depression Cardiovascular: No: WI, Hyperlipidemia, Hypercholesterolemia Central Nervous System: No: CVA Gastrointestinal: No: GERD Hematology/Oncology: No: Anemia Psychological: No: Anxiety, Depression Pulmonary: No: Asthma, COPD, Pulmonary Embolism Endocrine: Yes: Diabetes No: Hyperthyroidism, Hypothyroidism Dermatology: Yes: Other (skin cancer, uterine cancer) No: MRSA - Family History Family History: Father- DM, HTN, WI Sister- DM, Pancreatic cancer Sister-DM - Psychosocial History Smoking Status: Never Smoker Hx Alcohol Use: No Drugs: None Living Conditions: Alone (with family) - Medications Home Medications: Ascorbic Acid [Vitamin C] 500 mg PO DAILY 02/29/20 [Confirmed 02/29/20] Aspirin [Aspirin 81] 81 mg PO DAILY 02/29/20 [Confirmed 02/29/20] Cholecalciferol [Vitamin D] 1,000 unit PO DAILY 02/29/20 [Confirmed 02/29/20] Curalin 2 tab PO DAILY PRN 02/29/20 [Confirmed 02/29/20] Dicyclomine HCl [Dicyclomine Hydrochloride] 10 mg PO Q6H PRN 02/29/20 [Confirmed 02/29/20] Ibuprofen [Hm Ibuprofen] 200 mg PO Q6H PRN 02/29/20 [Confirmed 02/29/20] Maxide 0.5 tab PO DAILY 02/29/20 [Confirmed 02/29/20] Metoprolol Tartrate [Lopressor] 50 mg PO DAILY 02/29/20 [Confirmed 02/29/20] Denver-3 Fatty Acids [Denver-3] 1,000 mg OR DAILY 02/29/20 [Confirmed 02/29/20] - Allergies Allergies/Adverse Reactions: Allergy/AdvReac Type Severity Reaction Status Date / Time No Known Drug Allergy Allergy Verified 02/29/20 11:41 - Physical Exam Vital Signs: Vital Signs (Last Documented) Temperature (celsius) 36.3 C Temperature Source Temporal Artery Pulse Rate [Left] 61 Respiratory Rate 18 O2 Sat by Pulse Oximetry 99 Blood Pressure [Right Arm] 194/69 General Appearance: awake, alert, no apparent distress Eyes: PERRL, EOMI, conjunctivae clear, no discharge, no scleral icterus Head, Ears, Nose, and Throat: TMs normal (Cerumen noted bilaterally, no evidence of impaction.), pharynx normal, EAC normal, nares clear, dry mucous membranes (mild) Neck: supple, non-tender, no masses, full ROM, no cervical lymphadenopathy, no bony tenderness Respiratory: lungs clear, no wheezes, rhonchi, or rales, no respiratory distress, no accessory muscle use Cardiovascular: regular rate, regular rhythm Abdomen/GI: non tender, soft, nondistended, normal bowel sounds, no peritoneal signs Back: no vertebral tenderness Extremities: non-tender, normal inspection, no pedal edema, no calf tenderness, ROM limited by pain (LLE) Pulses: Carotid: 2+ (No bruits heard on auscultation bilaterally), Radial: 2+ Neurologic: normal gait, normal strength, speech clear/fluent Psychiatric: oriented X 3, calm, normal affect, no psychosis, not clinically intoxicated Skin: warm/dry, normal color - Laboratories Diagnostics Laboratory Results: Labs 02/29/20 11:39 02/29/20 11:45 A1C and Urinalysis Hemoglobin A1c 5.2 % 02/29/20 11:45 Functional Mets Assessment: Functional Mets Assessment Total Score 6.6067 Stop Bang Assessment: Stop Bang Assessment Stop Bang Score 2 Post-op Nutritional Supplement: MARLIN Eating less than 50% of normal No diet in preceeding week Unplanned Weight Loss >10% in No past 6 months Weight Loss (BMI<18.5kg/m2 {< No 20 if age >65}) - Assessment Plan Assessment Plan: Diagnosis: 1. Preoperative screening 2. Orthopedic hardware in situ, left hip All labs (CBC, BMP, UA) and diagnostics (EKG) were reviewed and discussed with the patient and her . All questions were answered to satisfaction. The patient is hypertensive during her visit today with a blood pressure of 194/69. She states that she does check her blood pressure normally and she is usually around 130/65. The patient's UA is also positive for a urinary tract infection, Urine culture and sensitivity reviewed. A prescription for ciprofloxacin 250 mg by mouth twice a day for 3 days was called into her pharmacy. Given the patient's current blood pressure and urinary tract infection I will request medical clearance prior to surgery. Final clearance is to be determined by the anesthesia team after chart review. Dictated By: JOSÉ ANTONIO Holt Dictated Date/Time:02/29/20 1240 Electronically Signed Date/Time: 03/05/20 1600 [facility] URINALYSIS W/ C S IF INDICAT EDon 02-29-2020 Appearance (U) Clear Normal [facility] Comment on above: Performed By: #### U [facility] #### [facility] [address] [place] [address] Color (U) Lt. Yellow [facility] Comment on above: Performed By: #### U [facility] #### [facility] [address] [place] [address] Hemoglobin Ql (U) Trace-Intact Abnormal NEGATIVE [facility] Comment on above: Performed By: #### U [facility] #### [facility] [address] [place] [address] pH (U) 5.5 [pH] Normal 5.0-9.0 [facility] Comment on above: Performed By: #### [facility] #### [address] [place] [address] Protein (U) [Mass/Vol] Negative Normal NEGATIVE [facility] Comment on above: Performed By: #### [facility] #### [address] [place] [address] URINE BILIRUBIN - DIPSTICK Negative Normal NEGATIVE [facility] Comment on above: Performed By: #### U AC, [facility] #### [address] [place] [address] URINE GLUCOSE - DIPSTICK Negative Normal NEGATIVE [facility] Comment on above: Performed By: #### U AC, [facility] #### [address] [place] [address] URINE KETONE Negative Normal NEGATIVE [facility] Comment on above: Performed By: #### U TRACEY, [facility] #### [address] [address] URINE LEUK ESTERASE 1+ Abnormal NEGATIVE [facility] Comment on above: Performed By: #### U TRACEY, [facility] #### [address] [address] URINE NITRITE - DIPSTICK Negative Normal NEGATIVE [facility] Comment on above: Performed By: #### [facility] #### [address] [address] URINE SPEC GRAVITY, DIPSTICK 1.010 Normal 1.003-1.035 [facility] Comment on above: Performed By: #### U TRACEY, [facility] #### [address] [address] URINE UROBILINOGEN - DIPSTICK 0.2 E.U./dL Normal <=1.0 [facility] Comment on above: Performed By: #### U AC, [facility] #### [address] [address] URINE MICROSCOPICon 02-28-19 21 Bacteria LM.HPF (Urine sed) [#/Area] 1+ Normal <1+ [facility] Comment on above: Result Comment: Cult ure Pending Performed By: #### U AC, [facility] #### [address] [address] RBC (U) [#/Vol] 10-20 Normal 0-2 [facility] Comment on above: Performed By: #### [facility] #### [address] [address] UR SQUAM EPITH FEW Normal NONE-MANY [facility] Comment on above: Performed By: #### U AC, [facility] #### [facility] [address] [place] [address] WBC (U) [#/Vol] 10-20 Normal 0-3 [facility] Comment on above: Result Comment: Cult ure Pending Performed By: #### U AC, [facility] #### [facility] [address] [place] [address] CMP with eGFRon 07-05-2019 Age - Reported 78 years Normal [facility] Comment on above: Performed By: #### 2 56230 #### [facility],[address] [place] [address] Albumin [Mass/Vol] 4.3 g/dL Normal 3.4 - 4.8 [facility] Comment on above: Performed By: #### 2 89770 #### [facility],[address] [place] [address] Albumin/Globulin [Mass ratio] 1.4 {ratio} Normal 0.9 - 1.6 [facility] Comment on above: Performed By: #### 2 09005 #### [facility],[address] [place] [address] ALK PHOS 83 U/L Normal 38 - 126 [facility] Comment on above: Performed By: #### 2 86933 #### [facility],[address] [place] [address] ALT/SGPT 15 U/L Normal 8 - 35 [facility] Comment on above: Performed By: #### 2 60834 #### [facility],[address] [place] [address] Anion gap [Moles/Vol] 11 mmol/L Normal 10 - 20 [facility] Comment on above: Performed By: #### 2 95354 #### [facility],[address] [place] [address] AST/SGOT 19 U/L Normal 13 - 39 [facility] Comment on above: Performed By: #### 2 61130 #### [facility],[address] [place] [address] B/C RATIO 29 ratio Normal 0 - 30 [facility] Comment on above: Performed By: #### 2 17339 #### [facility],[address] [place] [address] Bilirubin [Mass/Vol] 0.7 mg/dL Normal 0.0 - 1.5 [facility] Comment on above: Performed By: #### 2 95704 #### [facility],[address] [place] [address] Calcium [Mass/Vol] 9.7 mg/dL Normal 8.6 - 10.2 [facility] Comment on above: Performed By: #### 2 77864 #### [facility],[address] [place] [address] Chloride [Moles/Vol] 100 mmol/L Normal 98 - 107 [facility] Comment on above: Performed By: #### 2 60109 #### [facility],[address] [place] [address] CO2 [Moles/Vol] 26.0 mmol/L Normal 21.0 - 31.0 [facility] Comment on above: Performed By: #### 2 64995 #### [facility],[address] [place] [address] Creatinine [Mass/Vol] 1.3 mg/dL High 0.6 - 1.2 [facility] Comment on above: Performed By: #### 2 76257 #### [facility],[address] [place] [address] GFR/1.73 sq M predicted among non-blacks MDRD (S/P/Bld) [Vol rate/Area] 40 ML/MINUTE Low 60 - 999 [facility] Comment on above: Performed By: #### 2 41803 #### [facility],[address] [place] [address] GFR/1.73 sq M predicted among non-blacks MDRD (S/P/Bld) [Vol rate/Area] 48 ML/MINUTE Low 60 - 999 [facility] Comment on above: Result Comment: ACCO RDING TO THE NATIONAL KIDNEY DISEASE EDUCATION PROGRAM(NKDE), A NORMAL eGFR IS A VALUE GREATER THAN OR EQUAL TO 60 ML/MIN/1.73 SQ METERS. CHRONIC KIDNEY DISEASE: <60mL/MIN/1.73 SQ METERS KIDNEY FAILURE: <15mL/MIN/1.73 SQ METERS THIS TEST SHOULD ONLY BE USED FOR PATIENTS 18 YEARS OF AGE AND OLDER. Performed By: #### 2 38553 #### [facility],[address] [place] [address] GFR/1.73 sq M predicted among non-blacks MDRD (S/P/Bld) [Vol rate/Area] Normal [facility] Comment on above: Result Comment: COMP REHENSIVE METABOLIC PANEL Performed By: #### 2 65214 #### [facility],[address] [place] [address] Globulin (S) [Mass/Vol] 3.0 g/dL Normal 1.5 - 3.8 [facility] Comment on above: Performed By: #### 2 57314 #### [facility],[address] [place] [address] Glucose [Mass/Vol] 81 mg/dL Normal 74 - 106 [facility] Comment on above: Performed By: #### 2 56070 #### [facility],[address] [place] [address] Potassium [Moles/Vol] 4.3 mmol/L Normal 3.5 - 5.1 [facility] Comment on above: Performed By: #### 2 50386 #### [facility],[address] [place] [address] Protein [Mass/Vol] 7.3 g/dL Normal 6.4 - 8.3 [facility] Comment on above: Performed By: #### 2 73982 #### [facility],[address] [place] [address] Sodium [Moles/Vol] 133 mmol/L Low 136 - 145 [facility] Comment on above: Performed By: #### 2 03972 #### [facility],[address] [place] [address] Urea nitrogen [Mass/Vol] 38 mg/dL High 6 - 20 [facility] Comment on above: Performed By: #### 2 76993 #### [facility],[address] [place], [place] [id number] CT BRAIN W/WO CONTRASTon CT BRAIN W/WO CONTRAST [place] [address] Patient: SALMA CHAUHAN Phone#: : 1940 Age: 78 Gender: F Pt. Type: Out Account: [id number] Location: Ordering: [facility] Exam Date: 07/05/2019/10:57 Family Phys: Charge Code: [id number] Physician: [place] Order #: [id number] DLP Dose#: [id number] PROCEDURE: CT BRAIN WITH AND WITHOUT COMPARISON: None. INDICATIONS: Pain of left posterior head. TECHNIQUE: After obtaining the patient's consent, CT images were obtained without and with non- ionic intravenous contrast material. All CT scans at this facility use dose modulation, iterative reconstruction, and/or weight based dosing when appropriate to reduce radiation dose to as low as reasonably achievable. IV CONTRAST: Visipaque 320,50ml TOTAL DOSE: 104.60 CTDIvol(mGy) FINDINGS: CEREBRUM: Age-appropriate atrophy is present, without visible acute hemorrhage or lesion. CEREBELLUM: No edema, hemorrhage, mass, acute infarction, or inappropriate atrophy. BRAINSTEM: No edema, hemorrhage, mass, acute infarction, or inappropriate atrophy. CSF SPACES: Ventricles, cisterns, and sulci are appropriate for age. No hydrocephalus, subarachnoid hemorrhage, or mass. SKULL: No mass or other significant visible lesion. SINUSES: Limited views demonstrate no significant mucosal thickening or fluid. ORBITS: Limited views are unremarkable. OTHER: No abnormal meningeal or parenchymal enhancement. CONCLUSION: No acute disease. Dictated by: Doreen Ashraf MD on 07/05/2019 at 13:40 Continued Report - Page 2 of 2 Patient: SALMA CHAUHAN Phone#: : 1940 Age: 78 Gender: F Pt. Type: Out Account: [id number] Location: Ordering: [facility] Exam Date: 07/05/2019/10:57 Family Phys: Charge Code: [id number] Physician: [place] Order #: [id number] DLP Dose#: [id number] Approved by: Doreen Ashraf MD on 07/05/2019 at 13:40 Normal [facility] GYNon 10-26-2018 [facility] [address] [place] [address] FINAL GYNECOLOGIC CYTOLOGY REPORT NAME: SALMA CHAUHAN Date of 10/26/2018 Collection: Medical Record [id number] Date of 10/28/2018 Number: Receipt: Age: 77 Y Sex: F Date 11/01/2018 14:46 Reported: Date Of : 1940 Financial [id number] Admitting YULISA ALIS Number: Physician: Patient HHOFF Ordering YULISA SNELL Location: Physician: Accession Number: [id number] Specimen Source: VAGINAL CUFF PAP SMEAR Relevant Clinical History: Smears . . . . . . . . . .: 1 LMP . . . . . . . . . . . . . . . . . . . . . : Not Provided HPV Reflex? . . . . . . . . . . . Hysterectomy . . . . . . . . . . . . : n/a . . : x Date of Last Pap Test .. . . . . . . : ??/??/2016 Result of Last Pap Test . . . . . . : neg History of Carcinoma . . . . . . . : uterine cancer Comment: Low risk screen SPECIMEN ADEQUACY: UNSATISFACTORY FOR INTERPRETATION Specimen processed and examined, but unsatisfactory for evaluation of epithelial abnormality. (see reason) Air drying artifact. Scant cellularity. JEFF Screened by / Reviewed by AARON CABRERA M.D. (Electronic Signature) Department of Pathology Page 1 of 1 Normal [facility] Encounters Encounter Date Encounter Type Care Provider Facility Start: 01-19-2025 ambulatory Lety Kent [employer] Fa cility:[facility] Start: 12-29-2024 ambulatory Robert Renetta Facility:[facility] Start: 04-22-2024 End: 04-22-2024 Emergency department patient visit Jose Fung Facility:[facility] Start: 01-26-2024 [facility] Start: 01-21-2024 End: 01-22-2024 ambulatory ANGELA DURAN DO Facility:[facility] Start: 01-05-2024 ambulatory [facility] DO Facili ty:[facility] Start: 01-04-2024 End: 01-04-2024 ambulatory S1 RHETTI Facility:[facility] Start: 01-04-2024 End: 01-04-2024 [facility] Start: 07-05-2019 End: 07-05-2019 Patient encounter procedure [facility] Payers Date Payer Category Payer Unknown [id number] 2023 Self-pay 2023 Unknown 2023 Unknown [id number] 1940 Unknown [id number] 2.16.84 [id number] 1940 Unknown [id number] 2.16.8 [id number] 1940 Unknown [id number] 2.16.8 [id number] Unknown [id number] 2.16.8 [id number] Unknown [id number] 2.16.8 [id number] Unknown [id number] 2.16.8 [id number] Unknown [id number] 2.16.8 [id number] Unknown [id number] 2.16.8 [id number] Unknown [id number] 2.16.8 [id number] Summary Purpose Family History No Family History Records FoundNo Family History Records FoundNo Family History Records FoundNo Family History Records FoundNo Family History Records FoundNo Family History Records Found Advance Directives No Advanced Directives Records FoundNo Advanced Directives Records FoundNo Advanced Directives Records FoundNo Advanced Directives Records FoundNo Advanced Directives Records FoundNo Advanced Directives Records Found Additional Source Comments INFORMATION SOURCE (unrecogn ized section and content) DATE CREATED AUTHOR 11/01/2018 [facility] DATE CREATED AUTHOR AUTHOR'S ORGANIZ ATION 07/06/2019 [facility] DATE CREATED AUTHOR AUTHOR'S ORGANIZ ATION 04/20/2020 [facility] DATE CREATED AUTHOR AUTHOR'S ORGANIZ ATION 01/07/2024 [facility] DATE CREATED AUTHOR AUTHOR'S ORGANIZ ATION 01/26/2024 [facility] DATE CREATED AUTHOR AUTHOR'S ORGANIZ ATION 01/02/2025 [facility] FOR RECORDS PERTAINING TO PATIENTS WHO ARE OR HAVE BEEN ENROLLED IN A CHEMICAL DEPENDENCY/SUBSTANCEABUSE PROGRAM, SOME INFORMATION MAY BE OMITTED. This clinical summary was aggregated from multiple sources. Caution should be exercised in using it in the provision of clinical care. This summary normalizes information from multiple sources, and as a consequence, information in this document may materially change the coding, format and clinical context of patient data. In addition, data may be omitted in some cases. CLINICAL DECISIONS SHOULD BE BASED ON THE PRIMARY CLINICAL RECORDS. [facility] [employer] [facility]. provides no warranty or guarantee of the accuracy or completeness of information in this document.
== END | disposition home or self-care (01) ==
LOC: LAB 10:17
PROVIDERS: Physician Assistant; PCP Nurse Practitioner Family; Referring Provider Student in an Organized Health Care Education/Training Program; Visit Provider Student in an Organized Health Care Education/Training Program
DX: N28.9 Disorder of kidney and ureter, unspecified (principal)
CPT/HCPCS: 36415; 82565

== ENCOUNTER → 2025-01-17 | Outpatient (CLI) | payer SELFPAY, OTHER ==
--- NOTE | 2025-01-17 09:01 | CT_ITS ---
PROCEDURE: CTA NECK W/WO CONTRAST 01/17/2025 REASON FOR EXAM: OCCLUSION AND STENOSIS OF BILATERAL CAROTID ARTERIES TECHNIQUE: Procedure Code: [id number] Modality: CT Procedure: CTA NECK W/WO CONTRAST Multidetector CT angiography of the neck with intravenous contrast was performed with multiplaner and maximum intensity projection (MIP) reconstructions. 3D reconstructions were obtained. CONTRAST: Isovue 370 VOLUME: 100 mL One or more dose reduction techniques were used (e.g., Automated exposure control, adjustment of the mA and/or kV according to patient size, use of iterative reconstruction technique). RADIATION DOSE SUMMARY: DLP: 485 mGycm COMPARISON: None available. FINDINGS: The origins of the vessels arising from the aortic arch are patent without high- grade stenosis. Right carotid artery: The right common carotid artery is patent without high- grade stenosis. Atherosclerotic partially calcified plaque at the origin of the right cervical internal carotid artery contributes to approximately 70% focal stenosis. The right cervical internal carotid artery is otherwise patent. Punctate calcification at the distal cervical internal carotid artery. Left carotid artery: The left common carotid artery is patent without high-grade stenosis. Atherosclerotic calcific plaque at the origin of the left cervical internal carotid artery contributes to approximately 90% focal stenosis. There is distal patency. Punctate calcification of the distal cervical internal carotid artery. Cervical vertebral arteries: The cervical vertebral arteries are patent without high-grade stenosis. Right dominant vertebral artery. Scattered atherosclerotic calcification of the right intradural vertebral artery. Assessment for carotid stenosis is performed utilizing NASCET criteria. NASCET carotid stenosis criteria: 0% - none, 1-49% - mild, 50-69% - moderate, 70-89% - severe, 90-99% - critical. % ICA stenosis = (normal distal cervical ICA diameter - narrowest cervical ICA diameter / normal distal cervical ICA diameter) x 100. Visualized vasculature in the head: Atherosclerotic calcification of the cavernous carotid arteries contribute to mild luminal narrowing. The petrous and cavernous carotid arteries are otherwise patent without high-grade stenosis. The visualized proximal anterior, middle, and posterior cerebral arteries are patent. Ancillary findings: Multilevel cervical spondylosis. Edentulous. CT/CTA Neck W/WO Contrast IMPRESSION: 1. Critical stenosis (90% focal stenosis) at the origin of the left cervical in ternal carotid artery secondary to atherosclerotic plaque with distal patency. 2. Severe stenosis of the origin of the right cervical internal carotid artery secondary to atherosclerotic plaque with distal patency. Reading Location: [facility]
== END | disposition home or self-care (01) ==
LOC: CT 08:59
PROVIDERS: PCP Nurse Practitioner Family; Referring Provider Nurse Practitioner Family; Visit Provider Nurse Practitioner Family
DX: I65.21 Occlusion and stenosis of right carotid artery (principal)
CPT/HCPCS: 70498; Q9967

== ENCOUNTER 2025-02-19 10:45 | Inpatient (IN) | payer OTHER, SELFPAY ==
[2025-02-09 12:01] LABS: Partial Thromboplast Time 27.4 Seconds (24.1-36.2); Prothrombin Time (Protime)PT. 13.5 SECONDS (11.7-14.9)
[2025-02-09 12:06] LABS: Hematocrit 31.7 % (37-47); Hemoglobin 10.7 g/dL (12.0-15.0); Mean Corp Hgb Conc 33.8 g/dL (32-36); Mean Corpuscular Volume 108.9 fL (81-99); Mean Platelet Vol. 12.3 fl (6.2-12.0); Platelet Count 145 K/mm3 (150-450); RBC Distribution Width CV 12.5 % (11.6-14.6); RBC Distribution Width SD 50.1 fl (35.1-43.9); Red Blood Count 2.91 M/mm3 (4.2-5.4); White Blood Count 3.1 K/mm3 (4.4-11.0)
[2025-02-09 12:18] LABS: Anion Gap 10 (5-15); BUN 24 mg/dL (4-19); BUN/Creat Ratio 17.7 RATIO (10-20); Calcium,Total 9.6 mg/dL (7.6-11.0); Carbon Dioxide 25.0 mmol/L (21.0-32.0); Chloride 102 mmol/L (98-108); Glucose 116 mg/dL (70-99); Potassium 4.3 mmol/L (3.3-5.1)
--- NOTE | 2025-02-09 17:50 | PAT.ANESEVAL ---
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 When Was Last Pacemaker Check QUESTION #4 FULL TEXT: You/Your Family Experience fever (hyperthermia) with Anesthesia Last Oral Intake Last Oral intake: Last Oral Intake NPO since Meds taken in AM with sips of water? 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 Has anyone observed you stop No 02/08/25 09:19 breathing during sleep? STOP Results Negative 02/08/25 09:19 QUESTION #5 FULL TEXT : Do you snore loudly (louder than talking or can be heard through closed doors)? 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 Specify any problems Hx of Preganancy in last 3 No 02/08/25 09:19 Months Nurse Filling Out Transfusion DSCHRIBER 02/08/25 09:19 & Questions: Date: 02/08/25 02/08/25 09:19 Time: 09:20 02/08/25 09:19 Patient unable to answer at this time (ie. confused, unrespo /Reproduction History /Reproductive History - water ski assembler: /Reproductive Hx- water ski assembler Hx Now No 02/08/25 09:19 Gestational Age (in weeks): EDC: Hx Hx Para Hx Section SAB No 02/08/25 09:19 Does the father of the baby or his family experience fever w Father of the baby Malignant Hypertension history comment PFSH Medical History Anxiety Cancer Cardiology follow-up encounter CKD (chronic kidney disease), stage III Diabetes Dietary restriction History of edema Hyperlipidemia Hypertension Loss of hearing Low iron Non-smoker Osteoarthritis Post-menopausal Wears dentures Wears glasses Home Medications ?Medication ?Instructions ?Recorded ?Last Taken ?Type rosuvastatin 40 mg tablet 40 mg PO QDAY CHOLESTEROL #30 tabs 01/03/25 Unknown Rx triamterene 75 1 tab PO QAM BP 01/03/25 Unknown History mg-hydrochlorothiazide 50 mg tablet clopidogrel 75 mg tablet (Plavix) 75 mg PO DAILY BLOOD THINNER #90 01/31/25 Unknown Rx tabs aspirin 81 mg tablet,delayed 81 mg PO QDAY HEART HEALTH 02/07/25 Unknown History release metoprolol succinate 50 mg 25 mg PO DAILY BP 02/07/25 Unknown History tablet,extended release 24 hr zolpidem 5 mg tablet 5 mg PO QHS PRN insomnia 02/07/25 Unknown History ferrous sulfate 325 mg (65 mg 325 mg PO DAILY ANEMIA 02/08/25 Unknown History iron) tablet Allergy/AdvReac Type Severity Reaction Status Date / Time No Known Allergies Allergy Verified 02/09/25 10:08 Family History Other Colon cancer Diabetes Heart disease Thyroid disorder Surgical History H/O: hysterectomy (~2007) History of appendectomy (~1962) History of carpal tunnel repair (~2022) History of hip surgery History of open reduction and internal fixation (ORIF) procedure Hx of cataract surgery (~2022) Hx of total hip arthroplasty Hx of total hip arthroplasty Social History Smoking Status: Never smoker Audit: Pertinent Findings Pertinent Findings EKG Perinent findings: 02/09/2025. Sinus bradycardia at 57 bpm with first-degree AV block. Anterior septal infarct, age undetermined. Consult pertinent findings: 02/09/2025. Dr. Castorena. 1. Preop cardiovascular exam-patient is currently asymptomatic. 2. EKG shows possible anterior septal infarct. Previous EKG did not read this. Today's EKG could be lead placement. No cardiac symptoms or evidence of ongoing ischemia. 3. METS greater than 4. No further cardiac testing indicated. 4. Continue current medication?metoprolol and rosuvastatin. Recommendation Anesthesia Recommendation Anesthesia recommendation: OPTIMIZED for anesthesia
[2025-02-19] VITALS (35 sets, daily range): BP systolic 95–173; BP diastolic 29–55; PULSE 53–69; RESP 10–20; TEMP 36.1–36.6; O2SAT 94–100; BMI 28.2; BMI 29.2
--- OUTSIDE RECORDS SUMMARY | 2025-02-19 05:14 | XMS RPT_ITS | CCD ---
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 Name Role Phone MC BROUSSARD Admitting Unavailable MC BROUSSARD Attending Unavailable MC BROUSSARD Primary Care Unavailable MC BROUSSARD Consulting Unavailable PROVIDER, UNKNOWN Consulting Unavailable MC BROUSSARD DO Primary Care Unavailable STALLING DO, CHRISTOPHHANSA Attending Unavail able STALLING DO, CHRISTOPHHANSA Attending Unavail able KAHLIL CAM, JAVY Consulting Unavailable MC BROUSSARD DO Primary Care Unavailable STALLING DO, ANGELA Admitting Unavail able SANDRA CHARLES MD Consulting Unavailabl e Referred, Self Attending Unavailable Yoli SCIENTIFIC PHOTOGRAPHER, [facility] Unavailabl e Yoli SCIENTIFIC PHOTOGRAPHER, [facility] Primary Care Unavailabl e Eden Car Attending Unavailable Yoli SCIENTIFIC PHOTOGRAPHER, Lety Kya Referring Unavailabl e Robert Jackson Attending Unavailable Yoli SCIENTIFIC PHOTOGRAPHER, [facility] Unavailabl e Jose Fung Attending Unavailable Yoli SCIENTIFIC PHOTOGRAPHER, [facility] Care Unavailabl e Yoli SCIENTIFIC PHOTOGRAPHER, Lety Kya Referring Unavailabl e Yoli SCIENTIFIC PHOTOGRAPHER, [facility] Primary Care Unavailabl e Yoli SCIENTIFIC PHOTOGRAPHER, Lety Kya Attending Unavailabl e Kapper SCIENTIFIC PHOTOGRAPHER, [facility] Primary Care Unavailabl e Casey Guzman Attending Unavailable Casey Guzman Referring Unavailable Problems Active Problems Problem Classification Problem Date Documented Da te Episodic/Chronic Chronic kidney disease (3 sources) Chronic kidney disease, stage 3 (moderate); Translations: [Chronic kidney disease, stage 3 (moderate)] Onset: 07-05-2019 Chronic Occlusion or stenosis of precerebral arteries (1 source) Occlusion and stenosis of bilateral carotid arteries; Translations: [Occlusion and stenosis of bilateral carotid arteries] Onset: 01-03-2025 Chronic Past or Other Problems Problem Classification Problem Date Documented Da te Episodic/Chronic Open wounds of extremities (1 source) Unspecified open wound, left lower leg, initial encounter; Translations: [Unspecified open wound, left lower leg, initial encounter] Onset: 05-03-2024 Episodic Results Test Name Value Interpretation Reference Range Facility MR/Evaristo 01-03-2025 /[facility] [address] [place] [address] OFFICE VISIT Date of Service: 01/03/25 MR#: [id number] Acct: [id number] Name: SALMA CHAUHAN Rep #: [id number] : 1940 Provider: JOSÉ ANTONIO Yarbrough Age/Sex: 84/F Location: [facility] Status: Signed Intake Vital Signs 04/22/24 21:44 01/03/25 09:22 Height 5 ft 5 in Weight: 166 lb BP 153/57 H Blood Pressure Location Lt brachial Position Sitting Respiration 16 Pulse 70 Pulse Source Monitor Temp 97.2 F L Temp Source Temporal Pulse Oximetry (%) 97 Oxygen Delivery Method room air Intake Visit Reasons: CAROTID STENOSIS Allergies No Known Allergies Allergy (Verified 01/03/25 09:25) Medications ???Medication ???Instructions ???Recorded ???Confirmed ???Type aspirin 81 mg tablet,delayed 81 mg PO BIDCM 02/21/19 Rx release Metoprolol Succinate 50 mg PO DAILY blood pressure 12/23 04/18 History rosuvastatin 40 mg tablet 40 mg PO QDAY #30 tabs 01/03/25 Rx triamterene 75 1 tab PO QAM 01/03/25 01/03/25 His tory mg-hydrochlorothiazide 50 mg tablet Is last menstrual period known: No Post menopausal: Yes Patient : No Have you fallen in the past year?: No PFSH Medical History HTN (hypertension) Gout Cancer Diabetes Surgical History Hx of cataract surgery ( 2022) History of carpal tunnel repair ( 2022) History of hip surgery H/O: hysterectomy ( 2007) History of appendectomy ( 1963) Family History (Updated 01/03/25 @ 09:22 by Wendy Ma) Other Colon cancer Diabetes Heart disease Thyroid disorder Social History Smoking Status: Never smoker HPI HPI HPI: SALMA CHAUHAN, is a 84 F who presents to the office today for evaluation of carotid artery stenosis. She had a blood flow screening 12/31/24 which demonstrated severe L ICA stenosis and moderate R ICA stenosis. She obtained this testing as a true screening, not due to any symptoms or particular concerns. She denies any history of TIA or CVA. No prior history of carotid intervention, other neck surgeries, or radiation to the neck. She denies any recent episode of focal neurologic symptoms such as unilateral weakness/numbness/parest hesias, facial droop, dysarthria, monocular vision loss. ASA is listed in her chart but she is not currently taking this. She denies any history of coronary artery disease, CHF, NM, arrhythmias. She reports that she is active, she is able to carry a load of laundry up a flight of stairs and complete household cleaning without any chest pain, shortness of breath, or significant fatigue. ROS General General: No weight change, appetite, fatigue, colon cancer, breast cancer or weakness HEENT HEENT: No difficulty swallowing, eye injury, eye surgery, swollen glands or hoarseness Endo Endocrine: Yes diabetes mellitus; No thyroid disease, thyroid cancer, Hair loss, heat intolerance or cold intolerance Skin Skin: Yes changing moles; No rash Musc Musculoskeletal: No back problems, arthritis, rheumatoid arthritis, gout or joint pain Cardio Cardiovascular: Yes high blood pressure; No murmur, pacemaker, heart disease, atrial fibrillation, heart attack, heart stent, palpitations, shortness of breath with exertion or chest pain Psych Psychiatric: No depression, anxiety or hearing voices Resp Respiratory: No shortness of breath, No sleep apnea, No cough, No COPD, No asthma, No emphysema and No wheezing Gastro Gastrointestinal: No abdominal pain, No nausea or vomiting, No diarrhea, No constipation, No blood in stool, No acid reflux, No hemorrhoids, No ulcers, No gallbladder problem and No black,tarry stools Viktor Hematologic: No blood thinners, No blood disorders, No bleeding, No anemia and No blood clots Neuro Neurologic: No system reviewed and no additional complaints, except as documented, No as per HPI, No abnormal gait, Yes abnormal hearing, No abnormal movements, No abnormal speech, No behavioral changes, No burning sensations, No confusion, No convulsions, No disequilibrium, No dizziness, No localized weakness, No frequent falls, No headache(s), No lack of coordination, No loss of vision, No memory loss, No numbness, No other visual disturbances, No radicular pain, No restless legs, No sensory deficit, No syncope, No tingling, No tremor(s), No weakness and No other Exam Const General: cooperative, comfortable and no acute distress Orientation: alert, awake and oriented x3 HENMT Head: normal to inspection, normocephalic and atraumatic Ears: hearing grossly normal bilaterally and external ears normal Nose: external nose no (more content not included)... Normal [facility] Serum Creatinine AND GFRon 03-05-2024 Creatinine [Mass/Vol] 1.14 mg/dL Normal 0.70-1.20 [facility] Comment on above: Performed By: #### L 501.1105 #### [facility] [address] [place], [address] GFR/1.73 sq M.predicted among non-blacks MDRD (S/P/Bld) [Vol rate/Area] 48 mL/min/{1.73_m2} Low >60 [facility] Comment on above: Result Comment: mL/m in/1.73m2 CKD-EPI Creatinine Equation (2020) Performed By: #### L 501.1105 #### [facility] [address] [place], [address] Emergency Department Summary on 04-22-2024 Emergency Department Summary [facility] Medical Records Department [address] [place] [address] Emergency Department Summary 04/22/24 MR#: [id number] Acct: [id number] Name: SALMA CHAUHAN Rep #: [id number] : 1940 83 From: Jose Fung MD PCP: WIL Mae Status:PRE ER Location: ED HPI History of [...] was 122. She denies any polyuria polydipsia. [facility] Medical History HTN (hypertension) Gout Cancer Diabetes [...] on antibiotic (more content not included)... Normal [facility] .GFRon 01-22-2024 GFR 48 ml/min/1.73sqm Normal [facility] Comment on above: Result Comment: GFR [...] M ORPH, CBC, DIFF, GFR, BMP #### [place] [address] GFR Non- 40 ml/min/1.73sqm Normal [facility] Comment on above: Result Comment: GFR [...] M ORPH, CBC, DIFF, GFR, BMP #### [facility] [address] [place] [address] .Manual Diffon 01-22-2024 Bands 3.0 % Normal 0.0-5.0 [facility] Comment on above: Performed By: #### M ORPH, CBC, DIFF, GFR, BMP #### [facility] [address] [place], [place] [address] Basophil %, Manual 0.0 % Normal 0.0-2.5 [facility] Comment on above: Performed By: #### M ORPH, CBC, DIFF, GFR, BMP #### [facility] [address] [place], [place] [address] Basophil, Abs Manual 0.0 10 3/mcL Normal 0.0-0.3 [facility] Comment on above: Performed By: #### M ORPH, CBC, DIFF, GFR, BMP #### [facility] [address] [place], [place] [address] Eosinophil %, Manual 0.0 % Normal 0.0-6.0 [facility] Comment on above: Performed By: #### M ORPH, CBC, DIFF, GFR, BMP #### [facility] [address] [place], [place] [address] Eosinophil, Abs Manual 0.0 10 3/mcL Normal 0.0-0.7 [facility] Comment on above: Performed By: #### M ORPH, CBC, DIFF, GFR, BMP #### [facility] [address] [place], [place] [address] Lymphocyte %, Manual 19.0 % Low 20.0-40.0 [facility] Comment on above: Performed By: #### M ORPH, CBC, DIFF, GFR, BMP #### [facility] [address] [place], [place] [address] Lymphocyte, Abs Manual 1.0 10 3/mcL Normal 0.9-4.3 [facility] Comment on above: Performed By: #### M ORPH, CBC, DIFF, GFR, BMP #### [facility] [address] [place], [place] [address] Monocyte %, Manual 6.0 % Normal 2.0-13.0 [facility] Comment on above: Performed By: #### M ORPH, CBC, DIFF, GFR, BMP #### [facility] [address] [place], [place] [address] Monocyte, Abs Manual 0.3 10 3/mcL Normal 0.1-1.4 [facility] Comment on above: Performed By: #### M ORPH, CBC, DIFF, GFR, BMP #### [facility] [address] [place], [place] [address] Neutrophil %, Manual 72.0 % Normal 50.0-75.0 [facility] Comment on above: Performed By: #### M ORPH, CBC, DIFF, GFR, BMP #### [facility] [address] [place], [place] [address] Neutrophil, Abs Manual 3.7 10 3/mcL Normal 2.3-8.1 [facility] Comment on above: Performed By: #### M ORPH, CBC, DIFF, GFR, BMP #### [facility] [address] [place], [place] [address] Nucleated RBC 0.0 /100 WBC Normal [facility] Comment on above: Performed By: #### M ORPH, CBC, DIFF, GFR, BMP #### [facility] [address] [place], [place] [address] .Morphon 01-22-2024 Platelet Estimate Slt Decreased Normal [facility] Comment on above: Performed By: #### M ORPH, CBC, DIFF, GFR, BMP #### [facility] [address] [place], [place] [address] RBC morphology finding Nom (Bld) Normal Normal [facility] Comment on above: Performed By: #### M ORPH, CBC, DIFF, GFR, BMP #### [facility] [address] [place], [place] [address] A1Con 01-22-2024 Glucose [Mass/Vol] 117 mg/dL High <=114 [facility] Comment on above: Order Comment: docum entation of positive A1c Screening Result Comment: Brittany mated Average Glucose calculated by equation ((28.7xA1C)-46.7) Estimated average glucose (eAG) is a calculated value from Hemoglobin A1C and is food products sales representative of the average blood glucose level in the last 2-3 month period. Normal range: less than 114 mg/dL Performed By: #### A 1C #### [facility] [address] [place], [place] [address] HbA1c (Bld) [Mass fraction] 5.7 % Normal [facility] Comment on above: Order Comment: docum [...] loss. Performed By: #### A 1C #### [facility] [address] [place], [place] [address] BMPon 01-22-2024 BUN/Creatinine Ratio 23.4 ratio High 10.0-22.0 [facility] Comment on above: Performed By: #### M ORPH, CBC, DIFF, GFR, BMP #### [facility] [address] [place] [address] Calcium [Mass/Vol] 8.2 mg/dL Low 8.5-10.1 [facility] Comment on above: Performed By: #### M ORPH, CBC, DIFF, GFR, BMP #### [facility] [address] [place] [address] Chloride [Moles/Vol] 104 mmol/L Normal 98-107 [facility] Comment on above: Performed By: #### M ORPH, CBC, DIFF, GFR, BMP #### [facility] [address] [place] [id number] CO2 [Moles/Vol] 23 mmol/L Normal 21-32 [facility] Comment on above: Performed By: #### M ORPH, CBC, DIFF, GFR, BMP #### [facility] [address] [place] [address] Creatinine [Mass/Vol] 1.28 mg/dL High 0.55-1.02 [facility] Comment on above: Result Comment: Test ing performed on Siemens Dimension [place] analyzer using a modified kinetic Alvarez technique. Performed By: #### M ORPH, CBC, DIFF, GFR, BMP #### [facility] [address] [place] [id number] Electrolyte Balance 7.0 mEq/L Normal 4.0-15.0 [facility] Comment on above: Performed By: #### M ORPH, CBC, DIFF, GFR, BMP #### [facility] [address] [place] [address] Glucose [Mass/Vol] 144 mg/dL High 70-100 [facility] Comment on above: Performed By: #### M ORPH, CBC, DIFF, GFR, BMP #### [facility] [address] [place] [address] Potassium [Moles/Vol] 4.6 mmol/L Normal 3.5-5.1 [facility] Comment on above: Performed By: #### M ORPH, CBC, DIFF, GFR, BMP #### [place] [address] Sodium [Moles/Vol] 134 mmol/L Low 136-145 [facility] Comment on above: Performed By: #### M ORPH, CBC, DIFF, GFR, BMP #### [place] [address] Urea nitrogen [Mass/Vol] 30.0 mg/dL High 7.0-18.0 [facility] Comment on above: Performed By: #### M ORPH, CBC, DIFF, GFR, BMP #### [place] [address] CBCon 01-22-2024 Erythrocyte distribution width (RBC) [Ratio] 12.9 % Normal 11.5-15.5 [facility] Comment on above: Performed By: #### M ORPH, CBC, DIFF, GFR, BMP #### [place] [address] Hematocrit (Bld) [Volume fraction] 25.5 % Low 34.0-46.0 [facility] Comment on above: Performed By: #### M ORPH, CBC, DIFF, GFR, BMP #### [facility] [address] [place] [address] Hgb 8.8 G/dL Low 12.0-16.0 [facility] Comment on above: Performed By: #### M ORPH, CBC, DIFF, GFR, BMP #### [facility] [address] [place], [place] [address] MCH (RBC) [Entitic mass] 37.2 pg High 27.0-33.0 [facility] Comment on above: Performed By: #### M ORPH, CBC, DIFF, GFR, BMP #### [facility] [address] [place] [id number] MCHC 34.4 G/dL Normal 32.0-36.0 [facility] Comment on above: Performed By: #### M ORPH, CBC, DIFF, GFR, BMP #### [facility] [address] [place] [address] MCV (RBC) [Entitic vol] 108.0 fL High 80.0-99.0 [facility] Comment on above: Performed By: #### M ORPH, CBC, DIFF, GFR, BMP #### [facility] [address] [place] [address] Platelet 126 10 3/mcL Low 150-450 [facility] Comment on above: Performed By: #### M ORPH, CBC, DIFF, GFR, BMP #### [facility] [address] [place] [address] Platelet mean volume (Bld) [Entitic vol] 10.3 fL Normal 6.6-10.5 [facility] Comment on above: Performed By: #### M ORPH, CBC, DIFF, GFR, BMP #### [facility] [address] [place] [address] RBC 2.36 10 6/mcL Low 4.10-5.30 [facility] Comment on above: Performed By: #### M ORPH, CBC, DIFF, GFR, BMP #### [facility] [address] [place] [id number] WBC 5.2 10 3/mcL Normal 4.5-10.8 [facility] Comment on above: Performed By: #### M ORPH, CBC, DIFF, GFR, BMP #### [facility] [address] [place] [address] XR HIP 2-3 VIEWS RIGHTon XR HIP 2-3 VIEWS RIGHT ORIGINAL EXAMINATION: XRAY two views pelvis and right hip [id number]/29/2024 10:02 am COMPARISON: 12/23/2023 HISTORY: ORDERING SYSTEM [...] 01/21/2024 11:28:50 AM Ordering Provider: ANGELA Carty [facility] BASIC METABOLIC PANELon 02-0 Anion gap [Moles/Vol] 11.3 mmol/L Normal 11-[address] [facility] Comment on above: Performed By: #### B MP #### [facility] [address] [place] [address] Calcium [Mass/Vol] 8.6 mg/dL Normal 8.5-10.1 [facility] Comment on above: Performed By: #### B MP #### [facility] [address] [place] [address] Chloride [Moles/Vol] 101 mmol/L Normal 98-107 [facility] Comment on above: Performed By: #### B MP #### [facility] [address] [place] [address] CO2 [Moles/Vol] 24.0 mmol/L Normal 21-[address] [facility] Comment on above: Performed By: #### B MP #### [facility] [address] [place] [address] Creatinine [Mass/Vol] 1.40 mg/dL High 0.55-1.[address] [facility] Comment on above: Performed By: #### B MP #### [facility] [address] [place] [address] GFR AM 47.1 mL/min [facility] Comment on above: Result Comment: THE NORMAL LEVEL OF GFR VARIES ACCORDING TO AGE, SEX, AND BODY SIZE. A GFR LEVEL OF LESS THAN 60 ML/MIN REPRESENTS LOSS OF THE ADULT LEVEL OF NORMAL KIDNEY FUNCTION. Performed By: #### B MP #### [facility] [address] [place] [address] GFR/1.73 sq M.predicted MDRD (S/P/Bld) [Vol rate/Area] 38.9 mL/min/{1.73_m2} Normal [facility] Comment on above: Performed By: #### B MP #### [facility] [address] [place] [address] Glucose [Mass/Vol] 173 mg/dL High 70-100 [facility] Comment on above: Performed By: #### B MP #### [facility] [address] [place] [address] Potassium [Moles/Vol] 3.8 mmol/L Normal 3.5-5.[address] [facility] Comment on above: Performed By: #### B MP #### [address] [address] Sodium [Moles/Vol] 132 mmol/L Low 136-145 [facility] Comment on above: Performed By: #### B MP #### [address] [address] Urea nitrogen [Mass/Vol] 30.0 mg/dL High 7-[address] [facility] Comment on above: Performed By: #### B MP #### [facility] [address] [place] [address] HGB HCTon 03-28-2020 Hematocrit (Bld) [Volume fraction] 27.2 % Low 37.0-47.[address] [facility] Comment on above: Performed By: #### H H #### [address] [address] Hemoglobin (Bld) [Mass/Vol] 9.5 g/dL Low 12.0-16.[address] [facility] Comment on above: Performed By: #### H H #### [facility] [address] [place] [address] MRDSon 03-28-2020 MRDS Patient name: SALMA CHAUHAN MR#: [id number] Location: [facility] Acc#: [id number] Admit Date: 03/27/20 Discharge Date: 03/28/20 : [...] fracture fixed by another orthopedic surgeon in [place] over year ago. This was treated with [...] previously scheduled for her postop follow-up visit. CSTNADEEN/PI @ 09:20 @ 08:21 # [id number] ____ ANGELA DURAN D.O. 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 The PA assisted with [...] cephalomedullary nail by an orthopedic surgeon in [place], [place]. This went on to heal uneventfully. Over time, she began developing pain in her anterior hip and groin. She presented back to that orthopedic surgeon where x-rays showed severe left hip osteoarthritis with end-stage [id number] change of her hip joint. That surgeon [...] PACU in stable condition Dictated By: Angela Duran, Dictated Date/Time:03/27/20 1538 Electronically Signed Date/Time: 03/27/20 3058 [facility] PCM.CONSon 03-27-2020 PCM.SALMA HONEYCUTT [id number] Attending provider: SERGIO MANUEL [id number] Harlan Duran 1940 79 DOS: Medical Consultation [...] type 2 diabetes mellitus (NIDDM), history of NM (2007), iron deficiency anemia, and elderly (age [...] CVA, Anxiety, Depression Cardiovascular: Yes: Hypertension No: NM, Hyperlipidemia, Hypercholesterolemia Central Nervous System: No: CVA Gastrointestinal: No: GERD Hematology/Oncology: No: Anemia Psychological: No: Anxiety, Depression Pulmonary: No: Asthma, COPD, Pulmonary Embolism Endocrine: No: Hyperthyroidism, Hypothyroidism Comment Only: Diabetes (Y) Dermatology: Yes: Other (skin cancer, uterine cancer) No: MRSA Surgical History: Yes: Other ( Left hip surgery) - Family History Family History: Father- DM, HTN, NM - Psychosocial History Smoking Status: Never Smoker [...] 50 mg PO DAILY 02/29/20 [Confirmed 03/27/20] [place]-3 Fatty Acids [[place]-3] 1,000 mg OR DAILY 02/29/20 [Confirmed 03/27/20] [...] no motor/sensory deficits, normal strength, normal sensation, 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 w/ no focal defects Psychiatric: oriented X 3, calm, normal affect Skin: warm/dry, normal color - Laboratories Diagnostics Laboratory Results: 02/29/20 Unknown Urine Culture - Final Urine, Clean Catch Escherichia Coli Mixed Gram Positive Organisms CBC BMP 02/29/20 11:39 02/29/20 11:45 Diagnostic Reports: Acc#: [id number] Exam/Proc: HIP W/PEL 2 OR 3 VIEW-LEFT [...] by: Link Cobb MD 03/27/2020 3:17 PM [facility] REPORT SIGNATURE ON FILE Electronically Signed Date/Time: 03/27/201516 Dictated Date/time: 03/27/201516 - Assessment Plan Assessment Plan: Left total hip arthroplasty: Continue with pain medications IV morphine and Percocet, DVT prophylaxis adult aspirin 325 mg p.o. twice daily, physical therapy, 2.Hypertension,Continue with metoprolol 50 mg daily. 3.Diabetes mellitus (NIDDM),Diet controlled, last hemoglobin A1c 5.2. 4.history of NM (2007),On baby aspirin 81 mg p.o. daily 5.Iron deficiency anemia, and elderly (age >75).Not a issue. Dictated By: David Dumont MD Dictated Date/Time:03/27/201837 Electronically Signed Date/Time: 03/27/20 184 [facility] PD.ARACELISJoe 03-27-2020 PD.SALMA HERNANDEZ [id number] Ordering physician: ADM HILL 3VT [id number] Attending physician: Harlan Duran 1940 79 DOS: [...] 50 mg PO DAILY 02/29/20 [Confirmed 03/27/20] [place]-3 Fatty Acids [[place]-3] 1,000 mg OR DAILY 02/29/20 [Confirmed 03/27/20] [...] Cabezas DO Electronically Signed Date/Time: 03/27/20 1218 [facility] POST.ANon 03-27-2020 POST.AN SALMA CHAUHAN [id number] Ordering physician: ADM HILL [facility] [id number] Attending physician: Harlan Duran 1940 79 DOS: [...] No Complications: Yes Cardiopulmonary Status Stable: Yes 03/27/20 1605 Dictated By: Valentin Shearer MD Electronically Signed Date/Time: 03/27/[address] [facility] BASIC METABOLIC PANELon 01-0 Anion gap [Moles/Vol] 10.0 mmol/L Low - [facility] Comment on above: Performed By: #### B MP ####[address] [place] [address] Calcium [Mass/Vol] 9.6 mg/dL Normal 8.5-10.1 [facility] Comment on above: Performed By: #### B MP ####[address] [place] [address] Chloride [Moles/Vol] 107 mmol/L Normal 98-107 [facility] Comment on above: Performed By: #### B MP ####[address] [place] [address] CO2 [Moles/Vol] 26.0 mmol/L Normal - [facility] Comment on above: Performed By: #### B MP ####[address] [place] [address] Creatinine [Mass/Vol] 1.00 mg/dL Normal 0.55-1.[address] [facility] Comment on above: Performed By: #### B MP ####[address] [place] [address] GFR AM > 60.[address] [facility] Comment on above: Result Comment: THE NORMAL LEVEL OF GFR VARIES ACCORDING TO AGE, SEX, AND BODY SIZE. A GFR LEVEL OF LESS THAN 60 ML/MIN REPRESENTS LOSS OF THE ADULT LEVEL OF NORMAL KIDNEY FUNCTION. Performed By: #### B MP ####[address] [place] [address] GFR/1.73 sq M.predicted MDRD (S/P/Bld) [Vol rate/Area] 53.8 mL/min/{1.73_m2} Normal [facility] Comment on above: Performed By: #### B MP ####[address] [place] [address] Glucose [Mass/Vol] 88 mg/dL Normal 70-100 [facility] Comment on above: Performed By: #### B MP ####[address] [place] [address] Potassium [Moles/Vol] 4.8 mmol/L Normal 3.5-5.[address] [facility] Comment on above: Performed By: #### B MP ####[address] [place] [address] Sodium [Moles/Vol] 138 mmol/L Normal 136-145 [facility] Comment on above: Performed By: #### B MP ####[facility] [facility] [place] [address] Urea nitrogen [Mass/Vol] 33.0 mg/dL High 7-[address] [facility] Comment on above: Performed By: #### B MP ####[address] [place] [address] CBC with AUTO DIFFon 021 BAS0 % 1.00 % Normal 0-[address] [facility] Comment on above: Performed By: #### C BC ####[address] [place] [address] Basophils (Bld) [#/Vol] 0.0 10*3/uL Normal 0-0.[address] [facility] Comment on above: Performed By: #### C BC ####[address] [place] [address] Eosinophils (Bld) [#/Vol] 0.2 10*3/uL Normal 0.0-1.[address] [facility] Comment on above: Performed By: #### C BC ####[address] [place] [address] Eosinophils/100 WBC (Bld) 4.9 % Normal 0-[address] [facility] Comment on above: Performed By: #### C BC ####[address] [place] [address] GRAN # 1.8 K/uL Low 2.2-9.[address] [facility] Comment on above: Performed By: #### C BC ####[address] [place] [address] GRAN % 45.5 % Normal 42-[address] [facility] Comment on above: Performed By: #### C BC ####[address] [place] [address] Hematocrit (Bld) [Volume fraction] 33.8 % Low 37.0-47.[address] [facility] Comment on above: Performed By: #### C BC ####[address] [facility] [place] [address] Hemoglobin (Bld) [Mass/Vol] 11.8 g/dL Low 12.0-16.[address] [facility] Comment on above: Performed By: #### C BC ####[address] [place] [address] Lymphocytes (Bld) [#/Vol] 1.6 10*3/uL Normal 1.0-4.[address] [facility] Comment on above: Performed By: #### C BC ####[address] [place] [address] Lymphocytes/100 WBC (Bld) 41.9 % Normal 16-[address] [facility] Comment on above: Performed By: #### C BC ####[address] [place] [address] MCH (RBC) [Entitic mass] 35.0 g/dL Normal 31.0-36.[address] [facility] Comment on above: Performed By: #### C BC ####[address] [place] [address] MCV (RBC) [Entitic vol] 102.2 fL High 80-[address] [facility] Comment on above: Performed By: #### C BC ####[address] [facility] [place] [address] MEAN CORPUSCULAR HGB 35.8 pg High 26.0-32.0 [facility] Comment on above: Performed By: #### C BC ####[address] [place] [address] Monocytes (Bld) [#/Vol] 0.3 10*3/uL Normal 0.1-1.[address] [facility] Comment on above: Performed By: #### C BC ####[address] [place] [address] Monocytes/100 WBC (Bld) 6.7 % Normal 3-[address] [facility] Comment on above: Performed By: #### C BC ####[facility] [facility] [place] [address] Platelet mean volume (Bld) [Entitic vol] 9.1 fL Normal 6.6-10.[address] [facility] Comment on above: Performed By: #### C BC ####[address] [place] [address] Platelets (Bld) [#/Vol] 143 10*3/uL Normal 140-[address] [facility] Comment on above: Performed By: #### C BC ####[facility] [facility] [place] [address] RBC (Bld) [#/Vol] 3.31 10*6/uL Low 4.20-5.50 [facility] Comment on above: Performed By: #### C BC ####[facility] [place] [address] RED CELL DISTRI WIDTH 13.5 % Normal 11.0-15.[address] [facility] Comment on above: Performed By: #### C BC ####[place] [address] [place] [address] WBC (Bld) [#/Vol] 3.9 10*3/uL Low 4.0-11.0 [facility] Comment on above: Performed By: #### C BC ####[facility] [place] [address] GLYCOHEMOGLOBIN (A1C)on Glucose [Mass/Vol] 103 mg/dL Normal [facility] Comment on above: Performed By: #### G LY #### [facility] [address] [place] [address] HbA1c (Bld) [Mass fraction] 5.2 % Normal [facility] Comment on above: Result Comment: Inte rpretation [...] LOSS. Performed By: #### G LY #### [address] [address] PC.CONSULTon 02-29-2020 PC.CONSULT SALMA CHAUHAN [id number] Attending provider: [facility] YAMEL [id number] Harlan Duran 1940 79 DOS: Perioperative Clinic [...] type 2 diabetes mellitus (NIDDM), history of NM (2007), iron deficiency anemia, and elderly (age [...] further evaluation from our orthopedic doctors at [facility] and who obtained repeat xrays and recommended [...] Asthma, COPD, CVA, Anxiety, Depression Cardiovascular: No: NM, Hyperlipidemia, Hypercholesterolemia Central Nervous System: No: CVA Gastrointestinal: No: GERD Hematology/Oncology: No: Anemia Psychological: No: Anxiety, Depression Pulmonary: No: Asthma, COPD, Pulmonary Embolism Endocrine: Yes: Diabetes No: Hyperthyroidism, Hypothyroidism Dermatology: Yes: Other (skin cancer, uterine cancer) No: MRSA - Family History Family History: Father- DM, HTN, NM Sister- DM, Pancreatic cancer Sister-DM - Psychosocial [...] 50 mg PO DAILY 02/29/20 [Confirmed 02/29/20] [place]-3 Fatty Acids [[place]-3] 1,000 mg OR DAILY 02/29/20 [Confirmed 02/29/20] [...] Date/Time:02/29/20 1240 Electronically Signed Date/Time: 03/05/20 1600 [facility] URINALYSIS W/ C S IF INDICAT EDon 02-29-2020 Appearance (U) Clear Normal [facility] Comment on above: Performed By: #### U TR[facility]Y [facility] #### [facility] [address] [place] [address] Color (U) Lt. Yellow [facility] Comment on above: Performed By: #### U [facility] #### [facility] [address] [place] [address] Hemoglobin Ql (U) Trace-Intact Abnormal NEGATIVE [facility] Comment on above: Performed By: #### U AC, UMICC #### [address] [address] pH (U) 5.5 [pH] Normal 5.0-9.[address] [facility] Comment on above: Performed By: #### U AC, UMICC #### [address] [address] Protein (U) [Mass/Vol] Negative Normal NEGATIVE [facility] Comment on above: Performed By: #### U AC, UMICC #### [address] [place] [address] URINE BILIRUBIN - DIPSTICK Negative Normal NEGATIVE [facility] Comment on above: Performed By: #### U AC, UMICC #### [address] [address] URINE GLUCOSE - DIPSTICK Negative Normal [facility] Comment on above: Performed By: #### U AC, UMICC #### [address] [address] URINE KETONE Negative Normal NEGATIVE [facility] Comment on above: Performed By: #### U AC, [facility] #### [address] [address] URINE LEUK ESTERASE 1+ Abnormal NEGATIVE [facility] Comment on above: Performed By: #### U AC, UMICC #### [address] [place] [address] URINE NITRITE - DIPSTICK Negative Normal [facility] Comment on above: Performed By: #### U AC, [facility] #### [address] [address] URINE SPEC GRAVITY, DIPSTICK 1.010 Normal 1.003-1.[address] [facility] Comment on above: Performed By: #### U AC, UMICC #### [address] [address] URINE UROBILINOGEN - DIPSTICK 0.2 E.U./dL Normal <=1.[address] [facility] Comment on above: Performed By: #### U AC, UMICC #### [address] [address] URINE MICROSCOPICon 02-28-19 21 Bacteria LM.HPF (Urine sed) [#/Area] 1+ Normal <1+ [facility] Comment on above: Result Comment: Cult ure Pending Performed By: #### U AC, UMICC #### [facility] [address] [place] [address] RBC (U) [#/Vol] 10-20 Normal 0-[address] [facility] Comment on above: Performed By: #### U AC, UMICC #### [facility] [address] [place] [address] UR SQUAM EPITH FEW Normal NONE-MANY [facility] Comment on above: Performed By: #### U AC, UMICC #### [facility] [address] [place] [address] WBC (U) [#/Vol] 10-20 Normal 0-[address] [facility] Comment on above: Result Comment: Cult ure Pending Performed By: #### U AC, UMICC #### [facility] [address] [place] [address] CMP with eGFRon 07-05-2019 Age - Reported 78 years Normal [facility] Comment on above: Performed By: #### 2 01762 #### [facility],[address] [place] [address] Albumin [Mass/Vol] 4.3 g/dL Normal 3.4 - 4.8 [facility] Comment on above: Performed By: #### 2 27625 #### [facility],[address] [place] [address] Albumin/Globulin [Mass ratio] 1.4 {ratio} Normal 0.9 - 1.6 [facility] Comment on above: Performed By: #### 2 96709 #### [facility],[address] [place] [address] ALK PHOS 83 U/L Normal 38 - 126 [facility] Comment on above: Performed By: #### 2 95715 #### [facility],[address] [place] [address] ALT/SGPT 15 U/L Normal 8 - 35 [facility] Comment on above: Performed By: #### 2 75026 #### [facility],[address] [place] [address] Anion gap [Moles/Vol] 11 mmol/L Normal 10 - 20 [facility] Comment on above: Performed By: #### 2 82811 #### [facility],[address] [place] [address] AST/SGOT 19 U/L Normal 13 - 39 [facility] Comment on above: Performed By: #### 2 03426 #### [facility],[address] [place] [address] B/C RATIO 29 ratio Normal 0 - 30 [facility] Comment on above: Performed By: #### 2 34353 #### [facility],[address] [place] [address] Bilirubin [Mass/Vol] 0.7 mg/dL Normal 0.0 - 1.5 [facility] Comment on above: Performed By: #### 2 52474 #### [facility],[address] [place] [address] Calcium [Mass/Vol] 9.7 mg/dL Normal 8.6 - 10.2 [facility] Comment on above: Performed By: #### 2 75082 #### [facility],[address] [place] [address] Chloride [Moles/Vol] 100 mmol/L Normal 98 - 107 [facility] Comment on above: Performed By: #### 2 87052 #### [facility],[address] [place] [address] CO2 [Moles/Vol] 26.0 mmol/L Normal 21.0 - 31.0 [facility] Comment on above: Performed By: #### 2 37489 #### [facility],[address] [place] [address] Creatinine [Mass/Vol] 1.3 mg/dL High 0.6 - 1.2 [facility] Comment on above: Performed By: #### 2 39658 #### [facility],[address] [place] [address] GFR/1.73 sq M predicted among non-blacks MDRD (S/P/Bld) [Vol rate/Area] 40 ML/MINUTE Low 60 - 999 [facility] Comment on above: Performed By: #### 2 71519 #### [facility],[address] [place] [address] GFR/1.73 sq M predicted among non-blacks MDRD (S/P/Bld) [Vol rate/Area] 48 ML/MINUTE Low 60 - 999 [facility] Comment on above: Result Comment: ACCO RDING TO THE NATIONAL KIDNEY DISEASE EDUCATION PROGRAM(NKDE), A NORMAL eGFR IS A VALUE GREATER THAN OR EQUAL TO 60 ML/MIN/1.73 SQ METERS. CHRONIC KIDNEY DISEASE: <60mL/MIN/1.73 SQ METERS KIDNEY FAILURE: <15mL/MIN/1.73 SQ METERS THIS TEST SHOULD ONLY BE USED FOR PATIENTS 18 YEARS OF AGE AND OLDER. Performed By: #### 2 03199 #### [facility],[address] [place] [address] GFR/1.73 sq M predicted among non-blacks MDRD (S/P/Bld) [Vol rate/Area] Normal [facility] Comment on above: Result Comment: COMP REHENSIVE METABOLIC PANEL Performed By: #### 2 56112 #### [facility],[address] [place] [address] Globulin (S) [Mass/Vol] 3.0 g/dL Normal 1.5 - 3.8 [facility] Comment on above: Performed By: #### 2 91629 #### [facility],[address] [place] [address] Glucose [Mass/Vol] 81 mg/dL Normal 74 - 106 [facility] Comment on above: Performed By: #### 2 40500 #### [facility],[address] [place] [address] Potassium [Moles/Vol] 4.3 mmol/L Normal 3.5 - 5.1 [facility] Comment on above: Performed By: #### 2 13055 #### [facility],[address] [place] [address] Protein [Mass/Vol] 7.3 g/dL Normal 6.4 - 8.3 [facility] Comment on above: Performed By: #### 2 71484 #### [facility],[address] [place], [place] [address] Sodium [Moles/Vol] 133 mmol/L Low 136 - 145 [facility] Comment on above: Performed By: #### 2 86570 #### [facility],[address] [place], [place] [address] Urea nitrogen [Mass/Vol] 38 mg/dL High 6 - 20 [facility] Comment on above: Performed By: #### 2 52526 #### [facility],[address] [place] [address] BRAIN W/WO CONTRASTon CT BRAIN W/WO CONTRAST [place] [address] Patient: SALMA CHAUHAN Phone#: : 1940 Age: 78 Gender: F Pt. Type: Out Account: [id number] Location: Ordering: [facility] Exam Date: 07/05/2019/10:57 Family Phys: Charge Code: [id number] Physician: Bradford Order #: [id number] DLP Dose#: 104.60 PROCEDURE: CT BRAIN WITH [...] 78 Gender: F Pt. Type: Out Account: [id number] Location: Ordering: [facility] Exam Date: 07/05/2019/10:57 Family Phys: Charge Code: [id number] Physician: Bradford Order #: [id number] DLP Dose#: 104.60 Approved by: Doreen Ashraf MD on 07/05/2019 at 13:40 Normal [facility] GYNon 10-26-2018 NEUROLOGICAL PHYSIOTHERAPIST HUM[facility] OF [facility] [address] [place] [address] FINAL GYNECOLOGIC CYTOLOGY REPORT NAME: SALMA CHAUHAN Date of 10/26/2018 Collection: Medical Record [id number] Date of 10/28/2018 Number: Receipt: Age: 77 Y Sex: F Date 11/01/2018 14:46 Reported: Date Of : 1940 Financial [id number] Admitting YULISA SNELL Number: Physician: Patient HHOFF Ordering YULISA SNELL [...] JEFF Screened by / Reviewed by AARON CABERRA M.D. (Electronic Signature) Department of Pathology Page 1 of 1 Normal [facility] Encounters Encounter Date Encounter Type Care Provider Facility Start: 01-19-2025 ambulatory Lety Kent NP Fa cility:[facility] Start: 01-03-2025 ambulatory Lety Kent NP Fa cility:[facility] Start: 01-03-2025 End: 01-03-2025 ambulatory Lety Kent NP Facility:[facility] Start: 12-29-2024 ambulatory Robert Jackosn Facility:[facility] Start: 04-22-2024 End: 04-22-2024 Emergency department patient visit Joseprince Fung Facility:[facility] Start: 01-21-2024 End: 01-22-2024 ambulatory ANGELA DURAN DO Facility:[facility] Start: 01-05-2024 ambulatory [facility] DO Facili ty:[facility] Start: 07-05-2019 End: 07-05-2019 Patient encounter procedure [facility] Payers Date Payer Category Payer Self-pay 2024 Unknown [id number] 2024 Unknown [id number] 1940 Unknown [id number] 2.16.84 [id number] 1940 Unknown [id number] 2.16.8 [id number] 1940 Unknown [id number] 2.16.8 [id number] Unknown Unknown [id number] 2.16.8 [id number] Unknown [id number] 2.16.8 [id number] Unknown [id number] 2.16.8 [id number] Unknown [id number] 2.16.8 [id number] Unknown [id number] 2.16.8 [id number] Unknown [id number] 2.16.8 [id number] Summary Purpose Family History No Family History [...] section and content) DATE CREATED AUTHOR 11/01/2018 [facility] DATE CREATED AUTHOR AUTHOR'S ORGANIZ ATION 07/06/2019 [facility] DATE CREATED AUTHOR AUTHOR'S ORGANIZ ATION 04/20/2020 [facility] DATE CREATED AUTHOR AUTHOR'S ORGANIZ ATION 01/07/2024 [facility] DATE CREATED AUTHOR AUTHOR'S ORGANIZ ATION 01/26/2024 [facility] DATE CREATED AUTHOR AUTHOR'S ORGANIZ ATION 01/04/2025 [facility] FOR RECORDS PERTAINING TO PATIENTS WHO ARE [...] BE BASED ON THE PRIMARY CLINICAL RECORDS. [facility] provides no warranty or guarantee of the accuracy or completeness of information in this document.
[2025-02-19] MEDS: Lactated Ringers 1,000 ML 15 ML IV (06:30)
--- NOTE | 2025-02-19 06:41 | PRE.ANES_ITS ---
ASA Classification* ASA Classification ASA Classification: 3 Assessment & Plan Anesthesia* Anesthesia Assessment Anesthesia Assessment: Discussed sedation and/or anesthesia options, risks, benefits, and alternatives with patient/parents/legal guardian/POA. Questions invited. The patient/parents/legal guardian/POA seems to understand and agrees to proceed with anesthesia plan. Reviewed the physical assessment, medical history, allergy history and patient home medications list prior to surgery/procedure/anesthetic and documented any changes. Performed airway and anesthesia risk assessments. Anesthesia Type Anesthesia Type: General History Source History Obtained from:: Patient, Chart and Significant Other ( and daughter in the room) Anesthesia Focused Assessment* Temperature: 97.7 F Pulse Rate: 54 Blood Pressure: 173/51 Respiratory Rate: 20 Pulse Ox: 98 Oxygen Delivery Method: Room Air Airway Assessment Mouth opens: >3 cm Mallampati Score: II Teeth Condition: Dentures Neck Range of motion (ROM): Limited ROM Labs Anesthesia Preop lab: CBC WBC, (4.4-11.0) 3.1 K/mm3 L 02/09/25, 10:41 RBC, (4.2-5.4) 2.91 M/mm3 L 02/09/25, 10:41 Hgb, (12.0-15.0) 10.7 g/dL L 02/09/25, 10:41 Hct, (37-47) 31.7 % L 02/09/25, 10:41 Plt Count, (150-450) 145 K/mm3 L 02/09/25, 10:41 CHEMISTRY Potassium, (3.3-5.1) 4.3 mmol/L 02/09/25, 10:41 Sodium, (133-145) 137 mmol/L 02/09/25, 10:41 Magnesium, (1.6-2.6) 2.2 mg/dL 06/19/23, 22:01 BUN, (4-19) 24 mg/dL H 02/09/25, 10:41 Creatinine, (0.70-1.20) 1.33 mg/dL H 02/09/25, 10:41 Glucose, (70-99) 116 mg/dL H 02/09/25, 10:41 POC Glucose, (70-110) 226 mg/dL H 02/21/19, 10:42 COAG PT, (11.7-14.9) 13.5 SECONDS 02/09/25, 10:40 Pre-Assessment Diagnosis/Proposed Procedure Planned Operative Procedure(s): LEFT CAROTID ENDARTERECTOMY Anesthesia History Anesthesia History - analytical technician: Anesthesia History - analytical technician Hx Hospitalization No 02/08/25 09:19 Any Problems With Anesthesia No 02/08/25 09:19 Cholinesterase deficiency No 02/08/25 09:19 You/Your Family Experience No 02/08/25 09:19 fever (hyperthermia) with Relationship Recent Exposure to Contagious No 02/19/25 06:07 Disease Does patient have nerve No 02/08/25 09:19 stimulator Patient instructed to have device shut off --Does patient have Pacemaker No 02/19/25 06:07 or ICD? When Was Last Pacemaker Check QUESTION #4 FULL TEXT: You/Your Family Experience fever (hyperthermia) with Anesthesia Last Oral Intake Last Oral intake: Last Oral Intake NPO since 21:00 02/19/25 06:07 Meds taken in AM with sips of Yes 02/19/25 06:07 water? Meds patient instructed to take am of surgery PONV PONV - analytical technician: PONV - analytical technician Female Yes 02/08/25 09:19 HX of Motion Sickness No 02/08/25 09:19 HX of N/V After Surgery No 02/08/25 09:19 Non-Smoker Yes 02/08/25 09:19 Duration of Surgery greater Yes 02/08/25 09:19 than 60 minutes Number of Risk Factors 3 02/08/25 09:19 PONV Score Moderate Risk 02/08/25 09:19 Height & Weight Height & Weight: Anesthesia: Height & Weight Height 5 ft 5 in 02/19/25 06:07 Weight: 77 kg 02/19/25 06:07 Body Mass Index (BMI) 28.2 02/19/25 06:07 Respiratory Assessment Respiratory Assessment - analytical technician: Respiratory Tract Infection Hx - analytical technician Hx Respiratory Tract Infection No 02/08/25 09:19 STOP Sleep Apnea STOP Sleep Apnea - analytical technician: STOP Sleep Apnea - analytical technician Hx Hypertension Yes: CONTROLLED WITH MEDS 02/08/25 09:19 Hx Sleep Apnea No 02/08/25 09:19 CPAP BIPAP Do you snore loudly (louder No 02/08/25 09:19 than talking or can be heard Do you often feel tired/ No 02/08/25 09:19 fatigued/ sleepy during daytime? Has anyone observed you stop No 02/08/25 09:19 breathing during sleep? STOP Results Negative 02/08/25 09:19 QUESTION #5 FULL TEXT : Do you snore loudly (louder than talking or can be heard through closed doors)? Tobacco Use History Tobacco Use History - analytical technician: Tobacco Use History - analytical technician Tobacco Use Smoking Status Never smoker 02/08/25 09:19 Hx Tobacco Use No 02/08/25 09:19 Years Smoking Packs Smoked per Day Smoking Cessation Date was within the last 15 years Hx Smoking Cessation Date Hx Smoking Cessation Counseling Hematologic Medial History Hematologic Hx - analytical technician: Hematologic Medical Hx - documentation nurse Hx of Blood Transfusion No 02/08/25 09:19 Hx of Transfusion in last 3 No 02/08/25 09:19 Months Date of Last Transfusion (if within last 3 months) Ever experience any problems No 02/08/25 09:19 with transfusion(s)? Specify any problems Hx of Preganancy in last 3 No 02/08/25 09:19 Months Nurse Filling Out Transfusion DSCHRIBER 02/08/25 09:19 & Questions: Date: 02/08/25 02/08/25 09:19 Time: 09:20 02/08/25 09:19 Patient unable to answer at this time (ie. confused, unrespo /Reproduction History /Reproductive History - analytical technician: /Reproductive Hx- analytical technician Hx Now No 02/08/25 09:19 Gestational Age (in weeks): EDC: Hx Hx Para Hx Section SAB No 02/08/25 09:19 Does the father of the baby or his family experience fever w Father of the baby Malignant Hypertension history comment Active Medications Active Medications: Current Medications Generic Name Dose Route Start Last Admin Trade Name Freq PRN Reason Stop Dose Admin Cefazolin Sodium 2 gm/ Sodium 110 mls @ 200 mls/hr 02/19/25 07:00 Chloride IV 02/19/25 07:32 INTRAOP ONE Lactated Ringer's 1,000 mls @ 15 mls/hr 02/19/25 06:30 02/19/25 06:30 IV 15 mls/hr .Q48H SANTOS Administration PFSH Medical History Cardiology follow-up encounter Loss of hearing Wears glasses Wears dentures Post-menopausal Anxiety Diabetes Low iron Dietary restriction Non-smoker History of edema Hypertension Hyperlipidemia Osteoarthritis CKD (chronic kidney disease), stage III Cancer Home Medications ?Medication ?Instructions ?Recorded ?Last Taken ?Type rosuvastatin 40 mg tablet 40 mg PO QDAY CHOLESTEROL #3 0 tabs 01/03/25 02/18/25 Rx triamterene 75 1 tab PO QAM BP 01/03/25 History mg-hydrochlorothiazide 50 mg tablet clopidogrel 75 mg tablet (Plavix) 75 mg PO DAILY BLOOD THINNER #90 01/31/25 02/19/25 Rx tabs aspirin 81 mg tablet,delayed 81 mg PO QDAY HEART HEALT H 02/07/25 02/19/25 History release metoprolol succinate 50 mg 25 mg PO DAILY BP 02/07/25 02/19/25 History tablet,extended release 24 hr zolpidem 5 mg tablet 5 mg PO QHS PRN insomnia 02/18/25 History ferrous sulfate 325 mg (65 mg 325 mg PO DAILY ANEMIA 1 04/11/24 02/17/25 History iron) tablet Allergy/AdvReac Type Severity Reaction Status Date / Time No Known Allergies Allergy Verified 02/19/25 06:06 Family History Other Colon cancer Diabetes Heart disease Thyroid disorder Surgical History History of open reduction and internal fixation (ORIF) procedure Hx of total hip arthroplasty Hx of total hip arthroplasty Hx of cataract surgery (~2022) History of carpal tunnel repair (~2022) History of hip surgery H/O: hysterectomy (~2007) History of appendectomy (~1962) Social History Smoking Status: Never smoker Review of Systems (Anesthesia) ROS Narrative System reviewed and no additional complaints, except as documented.
[2025-02-19] MEDS: Midazolam 2 MG/2 ML Syringe IV (07:16)
--- NOTE | 2025-02-19 07:22 | PCM.HP.BLA ---
History and Physical Allergies No Known Allergies Allergy (Verified 01/31/25 14:25) Medications ?Medication ?Instructions ?Recorded ?Confirmed ?Type aspirin 81 mg tablet,delayed 81 mg PO BIDCM 02/21/19 01/31/25 Rx release Metoprolol Succinate 50 mg PO DAILY blood pressure 01/03/25 01/31/25 History rosuvastatin 40 mg tablet 40 mg PO QDAY #30 tabs 01/03/25 01/31/25 Rx triamterene 75 1 tab PO QAM 01/03/25 01/31/25 History mg-hydrochlorothiazide 50 mg tablet clopidogrel 75 mg tablet (Plavix) 75 mg PO DAILY #90 tabs 01/31/25 01/31/25 Rx Medication Reconciliation completed?: Yes Is last menstrual period known: No Post menopausal: Yes Patient : No Have you fallen in the past year?: No PFSH Medical History HTN (hypertension) Gout Cancer Diabetes Surgical History Hx of cataract surgery (~2022) History of carpal tunnel repair (~2022) History of hip surgery H/O: hysterectomy (~2007) History of appendectomy (~1962) Family History Other Colon cancer Diabetes Heart disease Thyroid disorder Social History Smoking Status: Never smoker HPI HPI HPI: SALMA MERINO, is a 84 F who presents to the office today for follow up of bilateral carotid stenosis initially identified on screening duplex. She has had a CTA for further evaluation and is here to discuss options. No prior neck surgery or XRT. ROS General General: No weight change, appetite, fatigue, colon cancer, breast cancer or weakness HEENT HEENT: No difficulty swallowing, eye injury, eye surgery, swollen glands or hoarseness Endo Endocrine: Yes diabetes mellitus; No thyroid disease, thyroid cancer, Hair loss, heat intolerance or cold intolerance Skin Skin: No rash or changing moles Musc Musculoskeletal: No back problems, arthritis, rheumatoid arthritis, gout or joint pain Cardio Cardiovascular: Yes high blood pressure; No murmur, pacemaker, heart disease, atrial fibrillation, heart attack, heart stent, palpitations, shortness of breath with exertion or chest pain Psych Psychiatric: No depression, anxiety or hearing voices Resp Respiratory: No shortness of breath, No sleep apnea, No cough, No COPD, No asthma, No emphysema and No wheezing Gastro Gastrointestinal: No abdominal pain, No nausea or vomiting, No diarrhea, No constipation, No blood in stool, No acid reflux, No hemorrhoids, No ulcers, No gallbladder problem and No black,tarry stools Viktor Hematologic: Yes blood thinners, No blood disorders, No bleeding, No anemia and No blood clots Additional Details: asa Neuro Neurologic: No system reviewed and no additional complaints, except as documented, No as per HPI, No abnormal gait, Yes abnormal hearing, No abnormal movements, No abnormal speech, No behavioral changes, No burning sensations, No confusion, No convulsions, No disequilibrium, No dizziness, No localized weakness, No frequent falls, No headache(s), No lack of coordination, No loss of vision, No memory loss, No numbness, No other visual disturbances, No radicular pain, No restless legs, No sensory deficit, No syncope, No tingling, No tremor(s), No weakness and No other Exam Const General: cooperative, healthy appearing, comfortable, no acute distress and well developed Nutritional Appearance: well nourished Orientation: alert, awake and oriented x3 HENMT Head: normocephalic and atraumatic Ears: hearing grossly normal bilaterally Nose: external nose normal Eyes General: appearance normal, both eyes and all related structures EOM: EOM intact bilaterally Neck Neck: normal visual inspection, full ROM, no lymphadenopathy and trachea midline Thyroid: thyroid normal Lymphatic: no lymphadenopathy noted Resp Effort & Inspection: normal respiratory effort, able to speak in complete sentences, symmetric chest movement, no audible wheezes, not labored, no stridor and no use of accessory muscles Auscultation: clear to auscultation bilaterally Cardio Rate: regular rate Rhythm: regular rhythm Heart Sounds: murmur systolic Bruits: carotid bruit bilaterally Pulses: brachial pulses present and radial pulses present Skin General: no rashes or lesions noted and no erythema Wounds: no wounds Neuro Cranial Nerves: CN's II-XI intact bilaterally and EOM intact bilaterally Speech: speech normal Gait: normal gait Motor: strength 5/5 throughout Sensory Exam: no sensory deficits noted Psych Appearance: grossly normal and well kempt Mental Status: mental status grossly normal Mood: congruent mood Speech and Movement: speech and movement normal Thought Content: normal Judgment: judgment good Coding Level of Care Code Off vis,est,level 4 Diagnoses Carotid stenosis, bilateral I65.23 Additional Codes Intake - Is patient in pain?: No (1126F) Intake - Medication Reconciliation completed?: Yes (1160F) Assessment and Plan Assessment and Plan (1) Carotid stenosis, bilateral: Status: Chronic Comment: CTA- images reviewed, left ICA 83% stenosis with dense calcification, right ICA 75% with dense calcification; normal bifurcation position Plan: -severe carotid stenosis bilateral, asymptomatic and to threshold for treatment -discussed risks/benefits/alternatives/indications for treatment; given calcification would best be treated with endarterectomy - CEA, left side first followed by right ~ 4 weeks later
--- NOTE | 2025-02-19 07:30 | PLAQ_PTH ---
PATIENT: SALMA MERINO LOC: ICU U#:[id number] AGE/SX: 84/F ROOM: ICU01 RE02/19/[address]: Dr. Robert Jackson MD : 1940 BED: 1 DIS: 02/20/2025 SPEC #: [id number] RECD: 02/19/25 11:52 STATUS: SHALINI REQ #: [id number] STORM: 02/19/25 07:[address]: Robert Jackson DEPT: SURGICAL PATHOLOGY RECD BY: Velma Shearer ENTERED: 02/19/25 13:28 SP TYPE: PLAQUE OTHR DR: Lety Kent, AUTOMOTIVE GLASS SPECIALIST-C Tissues: PLAQUE Procedures: Decalcification bone/plaque Surgery Specimen Level III HEADER OPERATION: Left Carotid Endarterectomy PRE-OP DIAGNOSIS: Carotid Stenosis, bilateral TISSUE SUBMITTED: A. Left Carotid Plaque MICROSCOPIC DIAGNOSIS A. Left carotid artery, plaque, endarterectomy: - Fibrointimal hyperplasia with calcification, consistent with atherosclerotic plaque. GROSS DESCRIPTION A. Received in fixative is one container labeled with the patient's name and designated left carotid plaque. The specimen consists of a single tubular collins-yellow calcified plaque measuring 1 cm in diameter and 2 cm in length. The specimen is entirely submitted in one cassette, after decalcification. CW:02/19/25 CPT: [id number]
[2025-02-19] MEDS: Lidocaine 1% (5 ml sdv) 5 ML Vial IV (08:03)
[2025-02-19] MEDS: Cefazolin 1 GM/5 ML Vial 2 GM IV (08:06)
[2025-02-19] MEDS: fentaNYL 100 MCG/2 ML Ampul 300 MCG IV (08:43)
[2025-02-19] MEDS: Heparin Injection (Vial) 5,000 UNIT/ML VIAL 8000 UNIT IV (09:15)
--- NOTE | 2025-02-19 11:29 | PCM.POST.ANE ---
Anesthesia: Postop Eval I Current Vital Signs Temperature: 97.8 F Pulse Rate: 68 Blood Pressure: 116/46 Respiratory Rate: 12 Pulse Ox: 98 Oxygen Delivery Method: Nasal Cannula Oxygen Flow Rate (L/min): 2 Assessment Airway patent: Yes Spontaneous unlabored respirations: Yes Mental status: Awake and Calm nausea: No Vomiting: No Anesthesia Complication: No Fluid Hydration Crystalloid volume administer (ml): 1,700 Total IV fluid infused: 1,700 Progress Note Anesthesia document: Postop Eval 1 completed: Yes
--- NOTE | 2025-02-19 13:19 | POSTOPAN2_ITS ---
Anesthesia Postop Eval I Sum Postop Eval Completion status Anesthesia document: Postop Eval 1 completed: Yes Anesthesia Postop Eval I Summary Anesthesia Postop Eval I Summary: Anesthesia Postop Eval I: Assessment Summary Airway patent Yes 02/19/25 11:30 CHIEF INSPECTOR.SHOF Spontaneous unlabored Yes 02/19/25 11:30 CHIEF INSPECTOR.SHOF respirations Mental status Awake,Calm 02/19/25 11:30 CHIEF INSPECTOR.SHOF nausea No 02/19/25 11:30 CHIEF INSPECTOR.SHOF Vomiting No 02/19/25 11:30 CHIEF INSPECTOR.SHOF Anesthesia Postop Eval I: Fluid Summary Crystalloid volume administer 1,700 02/19/25 11:30 CHIEF INSPECTOR.SHOF (ml) Colloids volume administered ( ml) Blood Product volume administered (ml) Total IV fluid infused 1,700 02/19/25 11:30 CHIEF INSPECTOR.SHOF Anesthesia Postop Eval I: Summary Notes Anesthesia Complication No 02/19/25 11:30 CHIEF INSPECTOR.SHOF Anesthesia Complication Comment: Post-operative progress note Anesthesia: Postop Eval II Evaluation Mental status: Awake and Calm Pain Level: 1 nausea: No Vomiting: No Complications Anesthesia Complication: No
--- NOTE | 2025-02-19 13:19 | PCM.POSTANE2 ---
Anesthesia Postop Eval I Sum Postop Eval Completion status Anesthesia document: Postop Eval 1 completed: Yes Anesthesia Postop Eval I Summary Anesthesia Postop Eval I Summary: Anesthesia Postop Eval I: Assessment Summary Airway patent Yes 02/19/25 11:30 FIRE MANAGEMENT OFFICER.SHOF Spontaneous unlabored Yes 02/19/25 11:30 FIRE MANAGEMENT OFFICER.SHOF respirations Mental status Awake,Calm 02/19/25 11:30 FIRE MANAGEMENT OFFICER.SHOF nausea No 02/19/25 11:30 FIRE MANAGEMENT OFFICER.SHOF Vomiting No 02/19/25 11:30 FIRE MANAGEMENT OFFICER.SHOF Anesthesia Postop Eval I: Fluid Summary Crystalloid volume administer 1,700 02/19/25 11:30 FIRE MANAGEMENT OFFICER.SHOF (ml) Colloids volume administered ( ml) Blood Product volume administered (ml) Total IV fluid infused 1,700 02/19/25 11:30 FIRE MANAGEMENT OFFICER.SHOF Anesthesia Postop Eval I: Summary Notes Anesthesia Complication No 02/19/25 11:30 FIRE MANAGEMENT OFFICER.SHOF Anesthesia Complication Comment: Post-operative progress note Anesthesia: Postop Eval II Evaluation Mental status: Awake and Calm Pain Level: 1 nausea: No Vomiting: No Complications Anesthesia Complication: No
[2025-02-19 14:14] LABS: ACT Activated Clotting Time 255 sec (74-137)
[2025-02-19 14:14] LABS: ACT Activated Clotting Time 143 sec (74-137)
[2025-02-19 14:14] LABS: ACT Activated Clotting Time 291 sec (74-137)
--- NOTE | 2025-02-19 15:12 | CT_ITS ---
PROCEDURE: BRAIN/HEAD WITHOUT CONTRAST 02/19/2025 REASON FOR EXAM: HEADACHE POST CAROTID ENDARECTOMY TECHNIQUE: Procedure Code: CTBR Modality: CT Procedure: BRAIN/HEAD WITHOUT CONTRAST Coronal and Sagittal reconstruction series were provided. One or more dose reduction techniques were used (e.g., Automated exposure control, adjustment of the mA and/or kV according to patient size, use of iterative reconstruction technique. RADIATION DOSE SUMMARY: CTDlvol: 45 mGy DLP: 796 mGycm COMPARISON: None FINDINGS: Brain: There is no evidence of hemorrhage, acute ischemia or mass. No extra- axial fluid collection, midline shift or mass effect. CSF Spaces: Normal Sinuses/Mastoids: Clear Bones: No fracture Bilateral lens implants are present. CT/Brain/Head without Contrast IMPRESSION: No acute abnormality Reading Location: [id number]
[2025-02-19] MEDS: 0.9% Normal Saline (250mL Bag) 250 ML 15 ML IV (16:24)
[2025-02-19] MEDS: Ketorolac 30 MG/ML Syringe IV (16:26)
--- NOTE | 2025-02-19 16:27 | OP.PCM_ITS ---
Operative Report (Standard) Operative Information Date of Procedure: 02/19/25 Pre-Operative Diagnosis: Left carotid stenosis Post-Operative Diagnosis: Same Surgery/Procedure Performed: Left carotid endarterectomy poison information specialist: Yes Superintendent Warehouse: Courtney Mar Tasks completed by education assistant: Opening, Closing, Opening & closing, Hemostasis: Tie, Hemostasis: Electrocautery and Retracting Type of Anesthesia: General RN Documented Start/Stop Times: Operation Date: 02/19/25 07:30 Case Time Into Pre-Op 02/19/25 05:39 Anesthesia Start 02/19/25 07:56 Into Room 02/19/25 07:56 Procedure Start 02/19/25 08:31 Procedure End 02/19/25 11:09 Anesthesia End 02/19/25 11:20 Out of Room 02/19/25 11:20 Into Recovery 02/19/25 11:25 Out of Recovery 02/19/25 12:40 Procedure Start Time: 08:30 Procedure Stop Time: 11:10 Select all DRAINS/GRAFTS/IMPLANTS that apply: Graft Graft details: Bovine pericardial patch Estimated Blood Loss: 30 Specimen collected: Yes Description of specimen(s) removed: Plaque Description of surgery: HPI: Patient is an 84-year-old female who was found to have bilateral severe carotid artery stenosis which were asymptomatic in nature. She is taken now for left carotid endarterectomy with plans for interval contralateral endarterectomy at a later hospital encounter. Description of procedure: Upon obtaining informed consent and verification correct patient procedure site the patient was taken to the operating where she was placed under general anesthesia. She was then positioned prepped and draped in usual sterile fashion time was performed. Oblique incision was made along the anterior border the sternocleidomastoid and Bovie was used to dissect down through subcutaneous tissue to the level the platysma. The platysma was divided and self-retaining retractors put into position. Further dissection was carried down to the sternocleidomastoid which was free along its anterior border line to be retracted posterior laterally exposing the carotid sheath. Sharp dissection was then used to dissect free the anterior border the jugular vein with the facial vein identified, ligated silk ties, and divided. The jugular vein was then retracted posterior laterally exposing the carotid vessels. Sharp dissection was used dissect free the proximal common carotid artery with care taken to identify and protect the vagus nerve. A writing was used to place a vessel loop at this location and the patient was then heparinized allowed to circulate for 3 minutes. Neck sharp dissection was used dissect free the distal internal carotid artery beyond the area of palpable and visible plaque. The vessel was dissected free circumferentially and a right angle you placed a vessel loop with care taken to identify and protect the hypoglossal nerve. Finally the external carotid artery was dissected free circumferentially and a right angle used to place a vessel loop. The vessel was then clamped first the internal followed by the common the external. A longitudinal arteriotomy was created with an 11 blade on the distal common carotid artery and extended with Hunt scissors onto the internal carotid artery beyond the plaque. The 14 Wolof [place] shunt was then placed first distally in the internal carotid artery and allowed to backbleed before placing approximately common carotid artery. We then performed her endarterectomy with a freer elevator with satisfactory endpoint distally on the internal carotid artery and eversion endarterectomy of the external carotid artery. The distal endpoint was intact with 7-0 Prolene interrupted sutures and the lumen flushed with heparinized saline to clear debris. A bovine pericardial patch was then secured in position using a 6-0 Prolene in a running fashion. Prior to completing a suture line the shunt was removed and the vessel was backbled. Upon completing the suture line the internal carotid artery was allowed to backbleed and the bifurcation and then reoccluded at the origin. Clamps were then released from the external and common carotid artery allowing 10 heartbeats of antegrade flow to flush into the external carotid artery before reestablishing flow into the internal carotid artery. After clamps removed the incision was made for hemostasis and heparin reversed with protamine. The vessels were interrogated with Doppler and found to be patent with appropriate signal. There was a moderate amount of ooze from the adipose tissue which was controlled in part with Bovie and followed by Surgicel powder topical hemostatic after which satisfactory hemostasis was observed. A 19 [address] channel EITAN was then placed via separate stab incision and incision closed with 2-0 Vicryl, 3-0 Vicryl, 4 Monocryl and Dermabond for the skin. The patient was awake from anesthesia moving all extremities command with cranial nerves intact. She was taken to the recovery room with anticipated mission to intensive care unit for hemodynamic and neurologic monitoring. Surgical Findings: See above Complications Complications: No
[2025-02-19] MEDS: Cefazolin 1 GM/50 ML BAG IV (16:36)
[2025-02-20] VITALS (18 sets, daily range): BP systolic 94–130; BP diastolic 27–86; PULSE 56–69; RESP 10–21; TEMP 36.4–36.6; O2SAT 94–99; BMI 29.1
[2025-02-20] MEDS: Cefazolin 1 GM/50 ML BAG IV (00:48)
[2025-02-20] MEDS: 0.9% Saline Lock 10 ML Syringe IV (01:10)
--- NOTE | 2025-02-20 08:52 | PCM.PN.SRG ---
Subjective Subjective I saw patient this morning at bedside. She was resting comfortably in bed. She reports her headache from overnight has resolved. She currently has no pain, reports minimal discomfort at the incision site. She has no other complaints. She has been on a liquid diet to this point. She got out of bed for the bedside commode, otherwise has not ambulated much. Objective Data Objective Data Vital Signs: Vital Signs Temp Pulse Resp BP Pulse Ox O2 Del Method O2 Flow Rate 97.9 F 57 L 10 L 113/29 L 96 Room Air 2 02/20/25 04:00 02/20/25 07:00 02/20/25 07:00 02/20/25 07:00 02/20/25 07:00 02/20/25 07:00 02/19/25 13:35 Oxygen Flow Rate (L/min) 2 Oxygen Delivery Method Room Air Weight: 175 lb 0.752 oz Body Mass Index (BMI) 29.1 Intake & Output: Intake and Output for Last 24 Hours 02/18/25 02/19/25 02/20/25 23:59 23:59 23:59 Intake Total 1150.5 / 1150.5 504.5 / 504.5 Output Total 50 / 50 355 / 355 Balance 1100.5 / 1100.5 149.5 / 149.5 Lab / Micro Data 02/09/25 10:41 02/09/25 10:41 Labs: Laboratory Results - last 24 hr 02/19/25 06:14: POC Glucose 112 H 02/19/25 09:12: Activated Clotting Time 143 H 02/19/25 10:26: Activated Clotting Time 291 H 02/19/25 11:03: Activated Clotting Time 255 H Radiography Diagnostic Testing: Radiology Impression Brain CT 02/19/25 15:12 IMPRESSION: No acute abnormality Reading Location: [id number] Physical Exam Const alert, oriented x3 and no apparent distress General Appearance: cooperative and comfortable HEENT normocephalic, hearing grossly normal bilaterally, external ears normal and external nose normal Eyes General Eye: normal appearance of both eyes Neck Neck Narrative: L CEA incision site with skin glue intact, no dehiscence. Minimal swelling, no signs/symptoms of hematoma. Minimal brown drainage in the EITAN drain. Resp normal respiratory effort, normal air movement, no retractions and no use of accessory muscles Effort and Inspection: able to speak in complete sentences; Negative for labored, grunting or stridor Cardio regular rate and regular rhythm Extremity no clubbing, cyanosis or edema Neuro oriented x3, CN's II-XII intact bilaterally, moves all extremities and no focal motor deficits Speech: speech normal Psych mental status grossly normal Appearance: grossly normal Attitude: calm and engaged Activity / Motor Behavior: appropriate eye contact Speech: normal speech Mood & Affect: euthymic mood Assessment & Plan Assessment/Plan (1) Carotid stenosis, bilateral: PLAN: She is POD#1 from L CEA. Incision site is satisfactory in appearance without hematoma. EITAN drain removed without issue, she tolerated this well. Will progress to normal diet as tolerated. Plan to ambulate with nursing. D/c arterial line. Anticipate d/c to home later today. Charges/Coding Procedures Integumentary 111xxx-113xx: 37587 Global Visit
[2025-02-20] MEDS: Metoprolol(XL)Succ 25 MG Tablet PO (09:45)
[2025-02-20] MEDS: Aspirin E.C. 81 MG Tablet PO (09:46)
[2025-02-20] MEDS: Triamterene 75MG/Hctz 50MG Tablet 1 TABLET PO (09:46)
--- NOTE | 2025-02-20 09:54 | DS.PCM_ITS ---
Providers Date of Admission: 02/19/25 Primary Care Physician: Lety Kent, [employer] Reason For Visit: left Carotid Endarterectomy Diagnosis Discharge Diagnosis (1) Carotid stenosis, bilateral: Status: Chronic Code(s): I65.23 - Occlusion and stenosis of bilateral carotid arteries Plan: She is POD#1 from L CEA. Incision site is satisfactory in appearance without hematoma. EITAN drain removed without issue, she tolerated this well. Will progress to normal diet as tolerated. Plan to ambulate with nursing. D/c arterial line. Anticipate d/c to home later today. Medications at Discharge Home Medications rosuvastatin 40 mg tablet 40 mg PO QDAY CHOLESTEROL #30 tabs 01/03/25 triamterene 75 mg-hydrochlorothiazide 50 mg tablet 1 tab PO QAM BP 01/03/25 clopidogrel 75 mg tablet (Plavix) 75 mg PO DAILY BLOOD THINNER #90 tabs 01/31/25 aspirin 81 mg tablet,delayed release 81 mg PO QDAY HEART HEALTH 02/07/25 metoprolol succinate 50 mg tablet,extended release 24 hr 25 mg PO DAILY BP 02/07/25 zolpidem 5 mg tablet 5 mg PO QHS PRN insomnia 02/07/25 ferrous sulfate 325 mg (65 mg iron) tablet 325 mg PO DAILY ANEMIA 02/08/25 Hospital Course Operations - (L CEA) Summary of Care Provided Hospital Course: Jahaira Chauhan is an 84 y/o female who underwent L CEA on 02/19/25. The procedure was without complication and she tolerated it well. Postoperatively, she was routinely admitted to the ICU for ongoing hemodynamic and neurologic monitoring. She complained of a headache overnight, underwent Head CT which was negative for any bleeding. She has had HOB elevated. This morning, POD#1, headache had resolved, she described it as all-over, not left sided when it was occurring. She denies any vision changes, numbness/weakness/paresthesias, dysarthria. She has tolerated normal diet. She has ambulated without difficulty. She has remained hemodynamically and neurologically stable throughout her admission. She is discharged home today with planned outpatient follow-up 03/08/25. Weight / BMI Weight Weight: 175 lb 0.752 oz Body Mass Index (BMI) 29.1 ABG / Lab / Microbiology Data 02/09/25 10:41 12/19/25 10:41 Laboratory: Laboratory Results - last 24 hr 02/19/25 09:12: Activated Clotting Time 143 H 02/19/25 10:26: Activated Clotting Time 291 H 02/19/25 11:03: Activated Clotting Time 255 H Radiography Diagnostic Testing: Radiology Impression Brain CT 02/19/25 15:12 IMPRESSION: No acute abnormality Reading Location: [id number] Instructions May shower in (days): 1 Weight Bearing Status: Weight bearing as tolerated Lifting Restricted to (Lbs): 20 Lifting Restrictions: Do not lift greater than 20 pounds for 3 weeks Call your doctor if your incision/area has: Sudden Increased Bleeding, Increased Pain/ Swelling and Foul Smelling Discharge Call your doctor if you observe: Fever of 101 or Higher and Uncontrolled pain DC O2, CPAP, BIPAP Needs Home O2 Discharge instructions: No Additional Instructions: INCISION CARE: You have a small bandage on your neck over the site from which the surgical drain was removed. You may remove this bandage tomorrow. As long as there is no residual drainage, you may leave this open to air. If you do notice some continued drainage, you may re-cover with a Band-Aid. Your neck incision site is covered with skin glue which will continue to protect it. The skin glue will peel/flake off on its own over the next few weeks. Please do not pick at it. You may shower tomorrow. It is okay for soap and water to rinse over the incision site, pat to dry. Do not submerge the incision site in water such as to take a bath or go swimming etc. for 3 weeks. MEDICATION INSTRUCTIONS You declined prescription pain medication at discharge. You may continue to take Tylenol as needed for pain, up to 1,000mg by mouth every 8 hours. If you feel you need prescription pain medication once you are home, please contact the office at [phone]. ACTIVITY INSTRUCTIONS Do not lift greater than 20 pounds for 3 weeks. Otherwise, please continue with activity as tolerated. FOLLOW-UP INSTRUCTIONS You are scheduled for follow-up in the office on 03/08/2025. If you need to change this appointment or have any other questions/concerns, please call the office at [phone]. Please Follow Up With: Eden Car PA When: 03/08/2025 Meaningful Use Info Meaningful Use Meaningful Use Diagnoses (Choose all that apply): None applicable Discharge Plan Admission Admit Date/Time: 02/19/25 05:11 Attending Provider: Robert Jackson Primary Care Provider: Lety Kent NP Consulting Providers: Forest Turner Instructions Additional Instructions / Restrictions: INCISION CARE: You have a small bandage on your neck over the site from which the surgical drain was removed. You may remove this bandage tomorrow. As long as there is no residual drainage, you may leave this open to air. If you do notice some continued drainage, you may re-cover with a Band-Aid. Your neck incision site is covered with skin glue which will continue to protect it. The skin glue will peel/flake off on its own over the next few weeks. Please do not pick at it. You may shower tomorrow. It is okay for soap and water to rinse over the incision site, pat to dry. Do not submerge the incision site in water such as to take a bath or go swimming etc. for 3 weeks. MEDICATION INSTRUCTIONS You declined prescription pain medication at discharge. You may continue to take Tylenol as needed for pain, up to 1,000mg by mouth every 8 hours. If you feel you need prescription pain medication once you are home, please contact the office at [phone]. ACTIVITY INSTRUCTIONS Do not lift greater than 20 pounds for 3 weeks. Otherwise, please continue with activity as tolerated. FOLLOW-UP INSTRUCTIONS You are scheduled for follow-up in the office on 03/08/2025. If you need to change this appointment or have any other questions/concerns, please call the office at [phone]. Discharge Orders/Prescriptions Prescriptions: Continued triamterene-hydrochlorothiazid 75-50 mg tablet 1 tab PO QAM rosuvastatin 40 mg tablet 40 mg PO QDAY Qty: 30 2RF clopidogrel [Plavix] 75 mg tablet 75 mg PO DAILY Qty: 90 0RF metoprolol succinate 50 mg tablet extended release 24 hr 25 mg PO DAILY zolpidem 5 mg tablet 5 mg PO QHS PRN (Reason: insomnia) aspirin 81 mg tablet,delayed release (DR/EC) 81 mg PO QDAY ferrous sulfate 325 mg (65 mg iron) tablet 325 mg PO DAILY Referrals / Follow Up: Lety Kent [employer], [facility] [facility] [Primary Care Provider, Medical] Disposition Disposition (needs filled in before D/C Order can be placed): Home, Self Care Charges/Coding Procedures Integumentary 111xxx-113xx: [id number] Global Visit
--- NOTE | 2025-02-20 10:35 | CASEMGMT ---
SRUTHI MADDOX Assessment Face to Face with patient for initial transition planning/care coordination assessment. SRUTHI MADDOX introduced self and role at [facility], pt voices understanding. Pt is A&Ox4 and is resting comfortably in bed and is calm. Pt's RN, , and DIL at the bedside. Care providers, pharmacy, and demographics verified. Admitting dx: Left Carotid Endarterectomy LACE Strata: 2 PCP: Lety Kent Specialists: Renetta (Vascular) Preferred Pharmacy: [facility] Insurance: [employer] Prescription Benefit: Yes LNOK: Xavi (H), Amisha (DIL), Sonia (Son) Living Arrangements: Pt lives with her and her DIL in a 2 story home with 5 steps to enter with handrails. Pt states that she has more family that live on the same property. ADLs/IADLs: Pt states that she is indep and denies needs or concerns. Pt plans to get up with nursing today. Current 6-click score is 19. Transportation: Pt's DIL states that she has a friend that will drive the pt home today DME: Functioning [employer] with sufficient testing supplies. BP Machine. WC. Cane. Pt denies the need for a FWW at this time. HHC/SNF: Denies hx of or needs Pt?s goal: Home Plan: Home with pt's family, likely today as long as pt is able to ambulate well with nursing and tolerates diet (per ICU rounds). Pt states that she feels safe returning home with her family once medically ready and denies the need for any additional therapy or resources. Pt states that she has great family support at home and denies concerns. Pt and pt's family deny further questions or needs at this time. Maggie Bowie RN, CM
== END 2025-02-20 13:06 | disposition home or self-care (01) | DRG 39 ==
LOC: ICU 02-20 08:50
PROVIDERS: Anesthesiology; Admitting Provider Surgery Trauma Surgery; PCP Nurse Practitioner Family; Referring Provider Surgery Trauma Surgery; Visit Provider Surgery Trauma Surgery
PROC: 03CN0ZZ Extirpation of Matter from Left External Carotid Artery, Open Approach (ICD-10-PCS; CPT 35301; principal; 2025-02-19 07:10)
DX: I65.23 Occlusion and stenosis of bilateral carotid arteries (principal); E11.9 Type 2 diabetes mellitus without complications; I10 Essential (primary) hypertension; Z79.82 Long term (current) use of aspirin; Z79.02 Long term (current) use of antithrombotics/antiplatelets; Z79.899 Other long term (current) drug therapy
CPT/HCPCS: 36415; 70450; 80048; 82962; 83036; 85027; 85347; 85610; 85730; 86850; 86900; 86901; 88304; 88311; 94668; A4648; A4216; J2405